=== PATIENT | female | born 1960 | race Caucasian/White ===

== ENCOUNTER 2016-12-24 13:00 | Inpatient (IN) | payer OTHER ==
[2016-12-24] VITALS (12 sets, daily range): BP systolic 122–172; BP diastolic 67–84; PULSE 100–119; RESP 17–28; TEMP 97.8–98; O2SAT 87–98
[~2016-12-24] VITALS: Ht 170.2 cm; Wt 161.0 kg
[~2016-12-24 13:00] MED LIST: ATEN25; LASI20TA PO; PRED20 PO; VASO10TA8 PO
[2016-12-24] MEDS ORDERED: methylPREDNISolone SOD SUCC 125 MG/2 ML VIAL IVP ONE (13:15)
[2016-12-24] MEDS ORDERED: SODIUM CHLORIDE 0.9% FLUSH 10 ML FLUSH IVF PRN (13:15)
--- NOTE | 2016-12-24 13:18 | PD ---
HPI Chief Complaint: Respiratory Symptoms Time Seen by Provider: 11:30 Travel History International Travel<30 days: No Contact w/Intl Traveler<30days: No Traveled to known affect area: No History of Present Illness HPI This is a 56-year-old female who presents via EMS for evaluation of shortness of breath and cough. She reports that she has had a cough and some shortness of breath for the past few weeks. Cough is occasionally productive with yellow sputum. She was initially seen last week by her primary care physician and prescribed drug Dosepak and doxycycline. She also uses a Ventolin inhaler as needed. Symptoms have been persistent and she was started on Cefdinir in addition to the doxycycline 2 days ago. Today she had a particularly bad coughing spell and she has had the sensation that she has been unable to catch her breath since then. For this reason she called EMS. He is currently complaining of shortness of breath and cough. She does endorse one episode of vomiting prior to arrival. She denies any chest pain, fevers or chills or myalgias, abdominal pain, nausea, leg pain or swelling. She has no history of COPD or asthma. She is not a smoker. No history of PE or DVT. She has no other complaints at this time. PFSH Past Medical History Asthma: Yes Diminished Hearing: No Endocrine: No Gastrointestinal Disorders: Yes (CHOLY ) Hypertension: Yes Implanted Vascular Access Dvce: Yes Neurologic: Yes (CARPAL TUNNEL ) Psychiatric: No Respiratory: Yes (PNA/BRONCHITIS) ?: Not : 1 Para: 1 Past Surgical History Body Medical Devices: PLATE/ SCREWS IN RIGHT ANKLE Section: Yes (95) Cholecystectomy: Yes (87) Tonsillectomy: Yes ( A CHILD) Other Surgery: Yes (TONSILLECTOMY, , PLATE/SCREWS IN RIGHT ANKLE, CHOLECYSTECTOMY ) Social History Alcohol Use: No Tobacco Use: No Substance Use: No Allergies-Medications (Allergen,Severity, Reaction): Coded Allergies: Sulfa (Verified Allergy, Severe, HIVES, 05/18/15) Reported Meds & Prescriptions Reported Meds & Active Scripts Active Reported Methylprednisolone Dosepak (Methylprednisolone) 4 Dspk 4 Mg PO DIRECTED Per Pharmacist Direction Tanzeum 4-Pack Inj (Albiglutide) 50 Mg Pfpen Unknown Dose SQ Q7D Amlodipine (Amlodipine Besylate) 2.5 Mg Tab Unknown Dose PO DAILY Doxycycline Hyclate 100 Mg Cap 100 Mg PO BID Enalapril (Enalapril Maleate) 20 Mg Tab 20 Mg PO DAILY Cefdinir 300 Mg Cap 300 Mg PO Q12HR Atenolol 50 Mg Tab 50 Mg PO BID Metformin (Metformin HCl) 500 Mg Tab 500 Mg PO DAILY With a meal Promethazine-Codeine Liq 6.25-10 Mg/5 Ml Syrp 5 Ml PO Q6H PRN Review of Systems Except as stated in HPI: all other systems reviewed are Neg Physical Exam Narrative GENERAL: This is a obese female who is tachypneic. Her oxygen saturation is 87 % on room air. SKIN: Warm and dry. HEAD: Atraumatic. Normocephalic. EYES: Pupils equal and round. No scleral icterus. No injection or drainage. ENT: No nasal bleeding or discharge. Mucous membranes pink and moist. NECK: Trachea midline. No JVD. CARDIOVASCULAR: Regular rate and rhythm. No murmur appreciated. RESPIRATORY: No accessory muscle use. Tachypneic, somewhat diminished breath sounds bilaterally. No appreciable crackles or wheezing. GASTROINTESTINAL: Abdomen soft, non-tender, nondistended. Hepatic and splenic margins not palpable. MUSCULOSKELETAL: No obvious deformities. No edema. NEUROLOGICAL: Awake and alert. No obvious cranial nerve deficits. Motor grossly within normal limits. Normal speech. Data Data Last Documented VS Vital Signs Date Time Temp Pulse Resp B/P Pulse Ox O2 Delivery O2 Flow Rate FiO2 12/24/16 16:01 113 20 122/69 94 Nasal Cannula 2 12/24/16 13:09 98.0 Orders Albuterol-Ipratropium Neb (Duoneb Neb) (12/24/16 13:15) Complete Blood Count With Diff (12/24/16 13:11) Comprehensive Metabolic Panel (12/24/16 13:11) B-Type Natriuretic Peptide (12/24/16 13:11) Magnesium (Mg) (12/24/16 13:11) Ckmb (Isoenzyme) Profile (12/24/16 13:11) Troponin I (12/24/16 13:11) Iv Access Insert/Monitor (12/24/16 13:11) Electrocardiogram (12/24/16 13:11) Ecg Monitoring (12/24/16 13:11) Oximetry (12/24/16 13:11) Oxygen Administration (12/24/16 13:11) Chest, Single Ap (12/24/16 13:11) Sodium Chloride 0.9% Flush (Ns Flush) (12/24/16 13:15) Methylprednisolone So Succ Inj (Solumedr (12/24/16 13:15) Ct Pulmonary Angiogram (12/24/16 13:11) Vascular Access Team Consult/P PRN (12/24/16 13:40) Vascular Poc Ultrasound (12/24/16 ) Iohexol 350 Inj (Omnipaque 350 Inj) (12/24/16 15:51) Heparin Infusion EUN.Q1H (12/24/16 16:09) Heparin Inj (Heparin Inj) (12/24/16 16:15) Heparin Inj (Heparin Inj) (12/24/16 22:15) Heparin Inj (Heparin Inj) (12/24/16 22:15) Heparin-D5w Inj (Heparin-D5w Inj) (12/24/16 16:15) Act Partial Throm Time (Ptt) (12/24/16 16:09) Prothrombin Time / Inr (Pt) (12/24/16 16:09) Cbc No Diff, Includes Plts (12/24/16 16:09) Cbc No Diff, Includes Plts (12/27/16 06:00) Act Partial Throm Time (Ptt) (12/24/16 23:09) Occult Blood (Hemoccult) Stool (12/24/16 16:09) Echo 2d Comp With Doppler (12/24/16 ) Admit Order (Ed Use Only) (12/24/16 16:34) Labs Laboratory Tests Test 12/24/16 12/24/16 13:20 16:15 White Blood Count 19.5 TH/MM3 17.7 TH/MM3 Red Blood Count 5.09 MIL/MM3 4.75 MIL/MM3 Hemoglobin 14.6 GM/DL 13.7 GM/DL Hematocrit 45.2 % 42.2 % Mean Corpuscular Volume 88.8 FL 88.8 FL Mean Corpuscular Hemoglobin 28.8 PG 28.8 PG Mean Corpuscular Hemoglobin 32.4 % 32.4 % Concent Red Cell Distribution Width 13.5 % 13.7 % Platelet Count 292 TH/MM3 248 TH/MM3 Mean Platelet Volume 9.0 FL 9.1 FL Neutrophils (%) (Auto) 79.7 % Lymphocytes (%) (Auto) 14.2 % Monocytes (%) (Auto) 5.6 % Eosinophils (%) (Auto) 0.1 % Basophils (%) (Auto) 0.4 % Neutrophils # (Auto) 15.6 TH/MM3 Lymphocytes # (Auto) 2.8 TH/MM3 Monocytes # (Auto) 1.1 TH/MM3 Eosinophils # (Auto) 0.0 TH/MM3 Basophils # (Auto) 0.1 TH/MM3 CBC Comment DIFF FINAL Differential Comment Sodium Level 139 MEQ/L Potassium Level 4.7 MEQ/L Chloride Level 104 MEQ/L Carbon Dioxide Level 21.1 MEQ/L Anion Gap 14 MEQ/L Blood Urea Nitrogen 19 MG/DL Creatinine 1.09 MG/DL Estimat Glomerular Filtration 52 ML/MIN Rate Random Glucose 262 MG/DL Calcium Level 9.3 MG/DL Magnesium Level 1.8 MG/DL Total Bilirubin 0.2 MG/DL Aspartate Amino Transf 25 U/L (AST/SGOT) Alanine Aminotransferase 36 U/L (ALT/SGPT) Alkaline Phosphatase 118 U/L Total Creatine Kinase 52 U/L Troponin I 0.16 NG/ML B-Type Natriuretic Peptide 219 PG/ML Total Protein 7.7 GM/DL Albumin 3.4 GM/DL Prothrombin Time 10.5 SEC Prothromb Time International 1.0 RATIO Ratio Activated Partial 26.6 SEC Thromboplast Time MDM Medical Decision Making Medical Screen Exam Complete: Yes Emergency Medical Condition: Yes Medical Record Reviewed: Yes Interpretation(s) CT pulmonary angiogram CONCLUSION: 1. Extensive pulmonary embolus. There is a saddle embolus with embolic material seen in both main right and left pulmonary arteries. EKG sinus tachycardia, some ST depression noted in the inferior and lateral leads. Troponin 0.16 Differential Diagnosis Spontaneous pneumothorax, pneumonia, hemothorax, bronchitis, pulmonary embolism , [place] Narrative Course This is a 56-year-old female who has been experiencing cough and shortness of breath for the past few weeks. Symptoms worsened today during a coughing spell prompted evaluation. On initial examination she is tachypneic, oxygen saturation 87% on room air. She is tachycardic. She was placed on oxygen with improvement of her symptoms. Given her hypoxia and tachycardia, CT pulmonary injury and has been ordered. The patient will be placed on ECG monitoring and pulse oximetry. Twelve-lead EKG will be obtained. Lab work has been ordered. DuoNeb therapy and Solu-Medrol has been ordered. The patient feels improved upon reexamination. Her oxygen saturation is 97% on 3 L of oxygen. Her blood pressure stable at 122/69. Continues to be tachycardic in the 110s. The lab work and imaging studies have been reviewed. She has saddle pulmonary embolus. She has a troponin of 0.16. She has leukocytosis which is likely secondary to the outpatient steroids. Heparin has been initiated at PE doses. Denies any recent bleeding episodes. Given her extensive PE, we will discuss with cardiology in order to get a stat echocardiogram. The patient will be admitted to the ICU. Discussed with Dr. Coulter who is agreeable. Diagnosis Primary Impression: Pulmonary embolus Qualified Code: I26.92 - Acute saddle pulmonary embolism without acute cor pulmonale Admitting Information Admitting Physician Requests: Admit Franky So Dec 24, 2016 13:18
[2016-12-24] MEDS: RESP: ALBUTEROL 2.5 MG/IPRATROPIUM 0.5 MG NEB (SCH) INH ×3 (13:26→20:38)
[2016-12-24] MEDS ORDERED: AMLO2.5T PO (13:36)
[2016-12-24] MEDS ORDERED: METH4PAK PO (13:36)
[2016-12-24] MEDS ORDERED: ATEN50TA PO (13:36)
[2016-12-24] MEDS ORDERED: METF500T PO (13:36)
[2016-12-24] MEDS ORDERED: ENAL20TA PO (13:36)
[2016-12-24] MEDS ORDERED: PROM6.256 PO (13:36)
[2016-12-24] MEDS ORDERED: DOXY100C PO (13:36)
[2016-12-24] MEDS ORDERED: ALBI1INJ2 SQ (13:36)
[2016-12-24] MEDS ORDERED: CEFD300C PO (13:36)
[2016-12-24 13:41] LABS: AUTOMATED NEUTROPHIL # 15.6 TH/MM3 (1.8-7.7); BASOPHIL # 0.1 TH/MM3 (0-0.2); BASOPHIL % 0.4 % (0.0-2.0); EOSINOPHIL % 0.1 % (0.0-4.0); HEMATOCRIT 45.2 % (35.0-46.0); HEMO FLAGS DIFF FINAL; LYMPH % 14.2 % (9.0-44.0); LYMPHOCYTE # 2.8 TH/MM3 (1.0-4.8); MEAN CELL VOLUME 88.8 FL (80.0-100.0); MEAN CORPUSCULAR HEMOGLOBIN 28.8 PG (27.0-34.0); MEAN CORPUSCULAR HGB CONC 32.4 % (32.0-36.0); MONO % 5.6 % (0.0-8.0); NEUT % 79.7 % (16.0-70.0); PLATELET COUNT 292 TH/MM3 (150-450); RED BLOOD COUNT 5.09 MIL/MM3 (4.00-5.30); RED CELL DISTRIBUTION WIDTH 13.5 % (11.6-17.2); WHITE BLOOD COUNT 19.5 TH/MM3 (4.0-11.0)
[2016-12-24 14:03] LABS: ALT (GPT) 36 U/L (10-53); ANION GAP 14 MEQ/L (5-15); AST (GOT) 25 U/L (15-37); BICARBONATE 21.1 MEQ/L (21.0-32.0); BLOOD UREA NITROGEN 19 MG/DL (7-18); CHLORIDE 104 MEQ/L (98-107); GLOMERULAR FILTRATION RATE 52 ML/MIN (>89); MAGNESIUM 1.8 MG/DL (1.5-2.5); POTASSIUM 4.7 MEQ/L (3.5-5.1); SODIUM (NA) 139 MEQ/L (136-145)
[2016-12-24 14:06] LABS: ALKALINE PHOSPHATASE 118 U/L (45-117); TOTAL BILIRUBIN ADULT 0.2 MG/DL (0.2-1.0)
--- NOTE | 2016-12-24 14:07 | RADRPT ---
EXAM DATE/TIME: 12/24/2016 13:15 [facility] COMPARISON: CHEST SINGLE AP, June 30, 2013, 23:36. INDICATIONS : Short of breath. MEDICAL HISTORY : Venous insufficiency. diabetic SURGICAL HISTORY : None. ENCOUNTER: Initial ACUITY: 1 day PAIN SCORE: 0/10 LOCATION: Bilateral chest FINDINGS: A single view of the chest demonstrates the lungs to be symmetrically aerated without evidence of mas s, infiltrate or effusion. The cardiomediastinal contours are unremarkable. Osseous structures are intact. CONCLUSION: 1. No acute cardiopulmonary disease. Edwin Singh MD on December 24, 2016 at 14:04 Board Certified Radiologist. This report was verified electronically.
[2016-12-24 14:08] LABS: CREATINE KINASE 52 U/L (26-192)
[2016-12-24] MEDS ORDERED: IOHEXOL 350 MG/ML 10 ML VIAL (for RAD DIAG) IV ONE (15:51)
[2016-12-24] MEDS ORDERED: HEPARIN-D5W INJ 250 ML IV SCH (16:15)
[2016-12-24] MEDS ORDERED: HEPARIN SODIUM - IV 10,000 UNITS/10 ML VIAL IV ONE (16:15)
--- NOTE | 2016-12-24 16:24 | RADRPT ---
EXAM DATE/TIME: 12/24/2016 15:48 [facility] COMPARISON: No previous studies available for comparison. INDICATIONS : Shortness of breath. Recently treated for bronchitis. Rule out embolism. IV CONTRAST: 75 cc Omnipaque 350 (iohexol) IV RADIATION DOSE: 27.29 CTDIvol (mGy) Dose Comments: MEDICAL HISTORY : Hypertension. Bronchitis SURGICAL HISTORY : Cholecystectomy. section. ENCOUNTER: Initial ACUITY: 1 day PAIN SCALE: 5/10 LOCATION: chest TECHNIQUE: Volumetric scanning of the chest was performed using a pulmonary embolism protocol MIP images were re constructed. Using automated exposure control and adjustment of the mA and/or kV according to patien t size, radiation dose was kept as low as reasonably achievable to obtain optimal diagnostic quality images. FINDINGS: PULMONARY ARTERIES: The examination demonstrates a large saddle embolus with embolic material in both the right and left pulmonary circulation. LUNGS: There is no consolidation or pneumothorax . No concerning pulmonary nodule is visualized. PLEURAE: There is no pleural thickening or pleural effusion. MEDIASTINUM: There is good visualization of the great vessels of the middle mediastinum. No evidence of mediastin al or hilar adenopathy/mass. MUSCULOSKELETAL: There are degenerative changes within the thoracic spine. MISCELLANEOUS: The visualized upper abdominal organs demonstrate no acute abnormality. CONCLUSION: 1. Extensive pulmonary embolus. There is a saddle embolus with embolic material seen in both main rig ht and left pulmonary arteries. Juve Ruelas MD on December 24, 2016 at 16:18 Board Certified Radiologist. This report was verified electronically.
[2016-12-24 16:40] LABS: HEMATOCRIT 42.2 % (35.0-46.0); MEAN CELL VOLUME 88.8 FL (80.0-100.0); MEAN CORPUSCULAR HEMOGLOBIN 28.8 PG (27.0-34.0); MEAN CORPUSCULAR HGB CONC 32.4 % (32.0-36.0); PLATELET COUNT 248 TH/MM3 (150-450); RED BLOOD COUNT 4.75 MIL/MM3 (4.00-5.30); RED CELL DISTRIBUTION WIDTH 13.7 % (11.6-17.2); REVIEW FLAG FINAL; WHITE BLOOD COUNT 17.7 TH/MM3 (4.0-11.0)
[2016-12-24 16:50] LABS: APTT (PATIENT) 26.6 SEC (24.3-30.1); PROTHROMBIN TIME - PATIENT 10.5 SEC (9.8-11.6)
[2016-12-24] MEDS ORDERED: CHLORHEXIDINE GLUCONATE 2 % 1 PACK (2 CLOTHS) TOP PRN (17:15)
[2016-12-24] MEDS ORDERED: RESP: ALBUTEROL 2.5 MG/IPRATROPIUM 0.5 MG NEB (PRN) INH (17:15)
[2016-12-24] MEDS ORDERED: MISCELLANEOUS NURSING INFORMATION XX SCH (17:15)
[2016-12-24] MEDS ORDERED: DEXTROSE 50% IN WATER 50 ML VIAL(D50) IV PRN (17:30)
[2016-12-24] MEDS ORDERED: GLUCAGON 1 MG/ML VIAL OTHER PRN (17:30)
--- NOTE | 2016-12-24 17:48 | PD.RAD ---
Post Procedure Progress Note Pre Procedure Diagnosis: (1) Pulmonary embolus Post Procedure Diagnosis: (1) Pulmonary embolus Procedure Date: Dec 24, 2016 Supervising Radiologist: Juve Ruelas Estimated blood loss: None Anesthesia: Local Plan of Activity Patient to Unit: Critical Care Patient Condition: Fair Additional Comments: 56 y/o with massive bilateral PE. sating 80% on room air Risk, benifits and potential complications of TPA infusion discussed. Right IJ CVL placed without difficulty TPA infusion initiated at 2mg per hour via the CVL. Heparin infusion started at 600 units/ hr. Pt transferred to the ICU See PACS Report for procedural detail/treatment Juve Ruelas MD Dec 24, 2016 17:48
--- NOTE | 2016-12-24 18:12 | MH ---
cc: PATO HARRIS M.D. DATE OF ADMISSION: 12/24/2016 DATE OF : 1960 HISTORY OF PRESENT ILLNESS The patient is a 56-year-old female with a past medical history of hypertension, diabetes mellitus, hyperlipidemia and morbid obesity who presented to [facility] ED for evaluation of progressive shortness of breath associated with cough. The patient states that she went to her primary care doctor approximately one week ago and was diagnosed with bronchitis and she was given antibiotics, doxycycline and Medrol Dosepak in addition to Ventolin inhaler as needed. Her symptoms have persisted and when she went back for a followup on Thursday she was given additional antibiotics of Cefdinir. She reports progressive worsening shortness of breath for the past several days. She denies any associated symptoms of chest pain, orthopnea or PND however she has some edema of lower extremities. On arrival to the ER, she was tachycardic with a heart rate of 110-119. Her initial chest x-ray showed no evidence of any cardiopulmonary disease. However, the patient underwent CT angiogram of the chest which showed extensive pulmonary embolism and a saddle embolus with embolic material seen in both main right and left pulmonary arteries. She denies any personal or family history of thromboembolism. The patient however states that she drove to [place] two weeks ago and came back after one week. Her laboratory data significant for mild elevation in troponin at 0.16 and BNP of 219. The case discussed with Dr. Grant Ruelas from interventional radiology and plan to proceed with central line placement and TPA infusion. She is currently on 2 liters oxygen with sats of 94% and tachycardic with heart rate of 112. Blood pressure is currently 122/69. The patient denies any abdominal pain however she had one episode of emesis prior to arrival. In the ED she was given a bronchodilator treatment and Solu-Medrol 125 mg IV push. The patient denies any history of tobacco use. PAST MEDICAL HISTORY Significant for - 1. Hypertension. 2. Diabetes mellitus. 3. Hyperlipidemia. 4. Morbid obesity. PAST SURGICAL HISTORY 1. Previous tonsillectomy. 2. Previous cholecystectomy. 3. Previous . 4. Previous ankle and knee surgeries. FAMILY HISTORY No family history of thromboembolism. ALLERGIES SULFA - SIDE EFFECTS HIVES. MEDICATIONS Reported medications include - 1. Enalapril. 2. Norvasc. 3. Metformin. 4. Lipitor. 5. Atenolol. 6. Doxycycline. REVIEW OF SYSTEMS As per HPI. The rest of the system unremarkable. PHYSICAL EXAMINATION GENERAL: A 56-year-old female lying in bed in mild respiratory distress, tachycardic. VITAL SIGNS: Temperature 98.0, pulse of 112, blood pressure 122/69, sats 95%. HEENT: Atraumatic, normocephalic. Pupils equal, round, reactive to light and accommodation. Extraocular muscles intact. Conjunctivae pink. Nonicteric sclerae. Oral mucosa within normal. NECK: Supple. No JVD, adenopathy or thyromegaly. Trachea in the midline. CARDIOVASCULAR: Tachycardic. Normal S1, S2. No murmurs, rubs or gallops noted. PULMONARY: Bilateral equal entry. No rales or wheezing. ABDOMEN: Soft, obese, nontender, no distension. Positive bowel sounds. EXTREMITIES: No cyanosis or clubbing. 1 to 2+ edema. NEUROLOGIC: No focal sensory deficit. LABORATORY DATA WBC 17.7, hemoglobin 13.7, hematocrit 42, platelet count 248. Sodium 139, potassium 4.7, chloride 104, CO2 21, BUN of 19, creatinine 1.0, glucose 262, troponin 0.16, BNP 219. NR 1, PT 10.5, PTT 26.6. RADIOGRAPHY STUDIES Chest x-ray showed no evidence of any acute cardiopulmonary disease. CT angiogram of the chest showed saddle pulmonary embolism with embolic material seen in both main right and left pulmonary arteries IMPRESSION 1. Acute hypoxemic respiratory insufficiency. 2. Saddle pulmonary embolism. 3. Dyspnea secondary to PE. 4. Mild elevation in troponin secondary to PE. 5. Morbid obesity. 6. Hyperglycemia. 7. History of diabetes mellitus. 8. Hypertension. 9. Hyperlipidemia. 10. Leukocytosis, likely reactive. RECOMMENDATIONS 1. Monitor neuro status and avoid any sedatives. 2. Continue with oxygen and maintain sats above 92%. 3. Bronchodilators in the form of DuoNeb q.4 plus q.2 p.r.n. for shortness of breath. 4. Noninvasive positive pressure ventilation p.r.n. for respiratory distress. 5. Case discussed with Dr. Ruelas from interventional radiology and plan to proceed with tPA infusion per protocol. 6. We will obtain Doppler ultrasound of bilateral lower extremities to rule out DVT. 7. Monitor heart rate and blood pressure closely and maintain MAP greater than 65 mmHg. 8. Monitor troponins and we will obtain 2D echo to rule out RV strain and to evaluate LV function. 9. Monitor renal function, Is and Os and electrolyte replacement per protocol. We will place on normal saline at 75 mL/hr. 10. Keep n.p.o. for now and place on Protonix 40 mg IV daily for GI prophylaxis. 11. Monitor for signs of infections which include fever and WBC. We will obtain urinalysis with culture if indicated. A chest x-ray in the ER showed no evidence of any acute cardiopulmonary disease. We will panculture if spikes a fever. 12. Monitor CBC and coags as the patient will be on tPA infusion per PE protocol. 13. Place on medium scale sliding scale insulin with Accu-Chek q.4 hours for glycemic control. 14. GI prophylaxis with Protonix 40 mg daily and DVT prophylaxis with SCDs. In addition the patient will be on tPA infusion along with heparin. 15. Further recommendations will be based on hospital course. MD KJ Mustafa/ROSEANNE /5:13 PM /5:48 PM
--- NOTE | 2016-12-24 18:31 | PD ---
Data Data Last Documented VS Vital Signs Date Time Temp Pulse Resp B/P Pulse Ox O2 Delivery O2 Flow Rate FiO2 12/24/16 16:01 113 20 122/69 94 Nasal Cannula 2 12/24/16 13:09 98.0 Orders Albuterol-Ipratropium Neb (Duoneb Neb) (12/24/16 13:15) Complete Blood Count With Diff (12/24/16 13:11) Comprehensive Metabolic Panel (12/24/16 13:11) B-Type Natriuretic Peptide (12/24/16 13:11) Magnesium (Mg) (12/24/16 13:11) Ckmb (Isoenzyme) Profile (12/24/16 13:11) Troponin I (12/24/16 13:11) Iv Access Insert/Monitor (12/24/16 13:11) Electrocardiogram (12/24/16 13:11) Ecg Monitoring (12/24/16 13:11) Oximetry (12/24/16 13:11) Oxygen Administration (12/24/16 13:11) Chest, Single Ap (12/24/16 13:11) Sodium Chloride 0.9% Flush (Ns Flush) (12/24/16 13:15) Methylprednisolone So Succ Inj (Solumedr (12/24/16 13:15) Ct Pulmonary Angiogram (12/24/16 13:11) Vascular Access Team Consult/P PRN (12/24/16 13:40) Vascular Poc Ultrasound (12/24/16 ) Iohexol 350 Inj (Omnipaque 350 Inj) (12/24/16 15:51) Heparin Infusion EUN.Q1H (12/24/16 16:09) Heparin Inj (Heparin Inj) (12/24/16 16:15) Heparin Inj (Heparin Inj) (12/24/16 22:15) Heparin Inj (Heparin Inj) (12/24/16 22:15) Heparin-D5w Inj (Heparin-D5w Inj) (12/24/16 16:15) Act Partial Throm Time (Ptt) (12/24/16 16:09) Prothrombin Time / Inr (Pt) (12/24/16 16:09) Cbc No Diff, Includes Plts (12/24/16 16:09) Cbc No Diff, Includes Plts (12/27/16 06:00) Act Partial Throm Time (Ptt) (12/24/16 23:09) Occult Blood (Hemoccult) Stool (12/24/16 16:09) Echo 2d Comp With Doppler (12/24/16 ) Admit Order (Ed Use Only) (12/24/16 16:34) Labs Laboratory Tests Test 12/24/16 12/24/16 13:20 16:15 White Blood Count 19.5 TH/MM3 17.7 TH/MM3 Red Blood Count 5.09 MIL/MM3 4.75 MIL/MM3 Hemoglobin 14.6 GM/DL 13.7 GM/DL Hematocrit 45.2 % 42.2 % Mean Corpuscular Volume 88.8 FL 88.8 FL Mean Corpuscular Hemoglobin 28.8 PG 28.8 PG Mean Corpuscular Hemoglobin 32.4 % 32.4 % Concent Red Cell Distribution Width 13.5 % 13.7 % Platelet Count 292 TH/MM3 248 TH/MM3 Mean Platelet Volume 9.0 FL 9.1 FL Neutrophils (%) (Auto) 79.7 % Lymphocytes (%) (Auto) 14.2 % Monocytes (%) (Auto) 5.6 % Eosinophils (%) (Auto) 0.1 % Basophils (%) (Auto) 0.4 % Neutrophils # (Auto) 15.6 TH/MM3 Lymphocytes # (Auto) 2.8 TH/MM3 Monocytes # (Auto) 1.1 TH/MM3 Eosinophils # (Auto) 0.0 TH/MM3 Basophils # (Auto) 0.1 TH/MM3 CBC Comment DIFF FINAL Differential Comment Sodium Level 139 MEQ/L Potassium Level 4.7 MEQ/L Chloride Level 104 MEQ/L Carbon Dioxide Level 21.1 MEQ/L Anion Gap 14 MEQ/L Blood Urea Nitrogen 19 MG/DL Creatinine 1.09 MG/DL Estimat Glomerular Filtration 52 ML/MIN Rate Random Glucose 262 MG/DL Calcium Level 9.3 MG/DL Magnesium Level 1.8 MG/DL Total Bilirubin 0.2 MG/DL Aspartate Amino Transf 25 U/L (AST/SGOT) Alanine Aminotransferase 36 U/L (ALT/SGPT) Alkaline Phosphatase 118 U/L Total Creatine Kinase 52 U/L Troponin I 0.16 NG/ML B-Type Natriuretic Peptide 219 PG/ML Total Protein 7.7 GM/DL Albumin 3.4 GM/DL Prothrombin Time 10.5 SEC Prothromb Time International 1.0 RATIO Ratio Activated Partial 26.6 SEC Thromboplast Time MDM Supervised Visit with MAC: Yes Narrative Course The history, exam, and medical decision-making in the associated midlevel provider note were completed with my assistance. I reviewed and agree with the findings presented. I attest that I had a [id number] encounter with the patient on the same day, and personally performed and documented my assessment and findings in the medical record. *My assessment and Findings: This is a 56-year-old female who presents the emergency department with cough and shortness of breath that is worse for one day. She was hypoxic on arrival and tachycardic. She was placed on a monitored an IV was established. Labs demonstrated a mildly elevated troponin. CT pulmonary angiogram demonstrates a saddle embolus. We discussed the patient with interventional radiology as well as Dr. Coulter and the patient was heparinized and given catheter directed TPA. Diagnosis Primary Impression: Pulmonary embolus Qualified Code: I26.92 - Acute saddle pulmonary embolism without acute cor pulmonale Admitting Information Admitting Physician Requests: Admit Dahiana Hawkins MD Dec 24, 2016 18:31
--- NOTE | 2016-12-24 19:34 | RADRPT ---
EXAM DATE/TIME: 12/24/2016 18:33 [facility] COMPARISON: No previous studies available for comparison. INDICATIONS : Bilateral leg edema. MEDICAL HISTORY : Hypertension. Carpel tunnel. Asthma. Pneumonia. Bronchitis. SURGICAL HISTORY : Tonsillectomy.Cholecystectomy. section.Right ankle repair. Right knee surgery. ENCOUNTER: Initial ACUITY: 1 day PAIN SCORE: 6/10 LOCATION: Bilateral leg. TECHNIQUE: Venous ultrasound of the left and right leg was performed from the inguinal ligament to the proximal calf. Real-time, color Doppler and spectral tracing, compression and augmentation techniques were us ed. FINDINGS: Examination quality is less than optimal secondary to patient body habitus. RIGHT LEG: There is incomplete compression of the mid and distal femoral vein. No visible thrombus is seen. Bloo d flow is documented throughout the vessels. Remaining vessels demonstrate normal compression. LEFT LEG: There is incomplete compression of the mid femoral vein, popliteal vein, and peroneal veins and nonco mpression of the distal femoral vein. Possible thrombus is present in the distal femoral vein. Blood flow is documented within the vessels. CONCLUSION: 1. Examination quality is less than optimal secondary to patient body habitus. Examination is suspici ous for DVT within the left distal femoral vein. 2. There is incomplete compression of the right mid and distal femoral vein which could represent thr ombus. Stephen Carolina MD on December 24, 2016 at 19:21 Board Certified Radiologist. This report was verified electronically.
[2016-12-24] MEDS ORDERED: Intra-Venous HEPARIN 1,000 UNITS/500 ML NS (PRN) IV ×2 (19:45)
[2016-12-24] MEDS ORDERED: MORPHINE SULFATE 4 MG/ML INJ IV PRN (19:45)
[2016-12-24] MEDS ORDERED: HEPARIN 25,000 UNITS/250 ML D5W IV SCH (19:45)
[2016-12-24] MEDS ORDERED: Intra-Venous SODIUM CHLORIDE 0.9% IV LINE 1000 ML IV SCH (20:00)
[2016-12-24] MEDS: INSULIN NovoLIN REGULAR SUPPLEMENTAL SCALE SQ SCH (20:00)
[2016-12-24] MEDS: SODIUM CHLOR 0.9% 1000 ML INJ 1,000 ML IV SCH (20:54)
[2016-12-24 21:00] LABS: APTT (PATIENT) 27.1 SEC (24.3-30.1)
[2016-12-24 21:17] LABS: BACTERIA, URINE RARE /hpf; BLOOD, URINE NEG (NEG); COMMENT (UR) CULT NOT INDICATED; CULTURE IF INDICATED CULT NOT INDICATED; GLUCOSE,URINE NEG (NEG); KETONE, URINE NEG (NEG); NITRITE,URINE NEG (NEG); SQUAMOUS EPITHELIAL CELL URINE 2 /hpf (0-5); URINE COLOR YELLOW (YELLW/STRAW)
--- NOTE | 2016-12-24 21:21 | ECHRPT ---
Indication: Other pulmonary embolism without acute cor pulmonale CONCLUSIONS Normal left ventricular size. Wall thickness is normal. The left ventricular systolic function is normal with an estimated ejection fraction of 60%. There is flattening of the septum due to the right ventricular overload. The right ventricular function is moderately decreased. Right ventricle is severely dilated. The right atrial size is mildly dilated. There is mild tricuspid valve regurgitation. There is estimated mild pulmonary hypertension present (range 40-50 mmHg). BP: 151 / 84 HR: Rhythm: Sinus MEASUREMENTS (Male / Female) Normal Values Technical Quality:Fair 2D ECHO LV Diastolic Diameter PLAX 3.2 cm 4.2 - 5.9 / 3.9 - 5.3 cm LV Systolic Diameter PLAX 2.2 cm IVS Diastolic Thickness 1.0 cm 0.6 - 1.0 / 0.6 - 0.9 cm LVPW Diastolic Thickness 0.9 cm 0.6 - 1.0 / 0.6 - 0.9 cm LV Relative Wall Thickness 0.6 RV Internal Dim ED PLAX 4.2 cm LVOT Diameter 1.8 cm Aortic Root Diameter 2.9 cm M-MODE AV Cusp Separation MM 1.8 cm DOPPLER TV Peak Velocity 254.0 cm/s TR Peak Velocity 292.0 cm/s TR Peak Gradient 34.1 mmHg PV Peak Velocity 39.9 cm/s PV Peak Gradient 0.6 mmHg FINDINGS LEFT VENTRICLE Normal left ventricular size. Wall thickness is normal. The left ventricular systolic function is normal with an estimated ejection fraction of 60%. There is flattening of the septum due to the right ventricular overload. RIGHT VENTRICLE The right ventricular function is moderately decreased. Right ventricle is severely dilated. LEFT ATRIUM The left atrial size is normal. RIGHT ATRIUM The right atrial size is mildly dilated. ATRIAL SEPTUM The interatrial septum not well visualized. AORTA The aortic root and proximal ascending aorta are not well visualized MITRAL VALVE The mitral valve is not well visualized. AORTIC VALVE Trileaflet aortic valve. No aortic valve regurgitation. TRICUSPID VALVE Structurally normal tricuspid valve. There is mild tricuspid valve regurgitation. There is estimated mild pulmonary hypertension present (range 40-50 mmHg). PERICARDIUM No pericardial effusion. Christopher Bianchi MD, FACC (Electronically Signed) Final Date:24 December 2016 21:09
[2016-12-24] MEDS ORDERED: HEPARIN SODIUM - IV 10,000 UNITS/10 ML VIAL IV PRN ×2 (22:15)
[2016-12-24] MEDS: Intra-Venous ALTEPLASE 10 MG/500 ML NS IV SCH ×2 (23:00)
[2016-12-25] VITALS (36 sets, daily range): BP systolic 144–169; BP diastolic 65–75; PULSE 73–100; RESP 12–33; TEMP 97.4–98.5; O2SAT 93–100
[2016-12-25] MEDS: RESP: ALBUTEROL 2.5 MG/IPRATROPIUM 0.5 MG NEB (SCH) INH ×7 (00:22→23:57)
[2016-12-25 00:35] LABS: APTT (PATIENT) 27.1 SEC (24.3-30.1)
[2016-12-25] MEDS: Intra-Venous ALTEPLASE 10 MG/500 ML NS IV SCH ×4 (03:46→09:28)
[2016-12-25] MEDS: INSULIN NovoLIN REGULAR SUPPLEMENTAL SCALE SQ SCH ×6 (03:47→20:00)
[2016-12-25] MEDS: CHLORHEXIDINE GLUCONATE 2 % 1 PACK (2 CLOTHS) TOP SCH (03:47)
[2016-12-25 04:36] LABS: AUTOMATED NEUTROPHIL # 11.6 TH/MM3 (1.8-7.7); BASOPHIL % 0.1 % (0.0-2.0); HEMATOCRIT 38.4 % (35.0-46.0); HEMO FLAGS DIFF FINAL; LYMPH % 11.4 % (9.0-44.0); LYMPHOCYTE # 1.6 TH/MM3 (1.0-4.8); MEAN CELL VOLUME 88.4 FL (80.0-100.0); MEAN CORPUSCULAR HEMOGLOBIN 28.9 PG (27.0-34.0); MEAN CORPUSCULAR HGB CONC 32.7 % (32.0-36.0); MONO % 5.9 % (0.0-8.0); NEUT % 82.6 % (16.0-70.0); PLATELET COUNT 195 TH/MM3 (150-450); RED BLOOD COUNT 4.35 MIL/MM3 (4.00-5.30); RED CELL DISTRIBUTION WIDTH 13.5 % (11.6-17.2)
[2016-12-25 04:46] LABS: APTT (PATIENT) 26.2 SEC (24.3-30.1)
[2016-12-25 04:52] LABS: BICARBONATE 25.5 MEQ/L (21.0-32.0); MAGNESIUM 1.6 MG/DL (1.5-2.5); POTASSIUM 4.4 MEQ/L (3.5-5.1)
[2016-12-25] MEDS: SODIUM CHLOR 0.9% 1000 ML INJ 1,000 ML IV SCH ×2 (05:11→20:10)
--- NOTE | 2016-12-25 08:03 | HHI.CCPN ---
Subjective Remarks/Hospital Course The patient is a 56-year-old female with a past medical history of hypertension , diabetes mellitus, hyperlipidemia and morbid obesity who presented to [facility] ED for evaluation of progressive shortness of breath associated with cough. The patient states that she went to her primary care doctor approximately one week ago and was diagnosed with bronchitis and she was given antibiotics, doxycycline and Medrol Dosepak in addition to Ventolin inhaler as needed. Her symptoms have persisted and when she went back for a followup on Thursday she was given additional antibiotics of Cefdinir. She reports progressive worsening shortness of breath for the past several days. She denies any associated symptoms of chest pain, orthopnea or PND however she has some edema of lower extremities. On arrival to the ER, she was tachycardic with a heart rate of 110-119. Her initial chest x-ray showed no evidence of any cardiopulmonary disease. However, the patient underwent CT angiogram of the chest which showed extensive pulmonary embolism, a saddle embolus with embolic material seen in both main right and left pulmonary arteries. She denies any personal or family history of thromboembolism. The patient however states that she drove to [place] two weeks ago and came back after one week. Her laboratory data significant for mild elevation in troponin at 0.16 and BNP of 219. The case discussed with Dr. Grant Ruelas from interventional radiology and plan to proceed with central line placement and TPA infusion. She is currently on 2 liters oxygen with sats of 94% and tachycardic with heart rate of 112. Blood pressure is currently 122/69. The patient denies any abdominal pain however she had one episode of emesis prior to arrival. In the ED she was given a bronchodilator treatment and Solu-Medrol 125 mg IV push. 12/25 Patient states she is breathing much better. On TPA and Heparin infusion. Afebrile. Denies any chest pain. On 2L oxygen. Objective Vital Signs Date Time Temp Pulse Resp B/P Pulse Ox O2 Delivery O2 Flow Rate FiO2 12/25/16 06:00 98.2 83 16 165/73 96 12/25/16 00:22 Nasal Cannula 2.00 Intake and Output 12/24/16 12/24/16 12/25/16 08:00 16:00 00:00 Intake Total 645 ml Output Total 200 ml Balance 445 ml Result Diagram: 12/25/16 0400 12/25/16 0400 Other Results Laboratory Tests Test 12/24/16 12/24/16 12/24/16 12/24/16 13:20 16:15 18:03 19:30 White Blood Count 19.5 TH/MM3 17.7 TH/MM3 Red Blood Count 5.09 MIL/MM3 4.75 MIL/MM3 Hemoglobin 14.6 GM/DL 13.7 GM/DL Hematocrit 45.2 % 42.2 % Mean Corpuscular Volume 88.8 FL 88.8 FL Mean Corpuscular Hemoglobin 28.8 PG 28.8 PG Mean Corpuscular Hemoglobin 32.4 % 32.4 % Concent Red Cell Distribution Width 13.5 % 13.7 % Platelet Count 292 TH/MM3 248 TH/MM3 Mean Platelet Volume 9.0 FL 9.1 FL Neutrophils (%) (Auto) 79.7 % Lymphocytes (%) (Auto) 14.2 % Monocytes (%) (Auto) 5.6 % Eosinophils (%) (Auto) 0.1 % Basophils (%) (Auto) 0.4 % Neutrophils # (Auto) 15.6 TH/MM3 Lymphocytes # (Auto) 2.8 TH/MM3 Monocytes # (Auto) 1.1 TH/MM3 Eosinophils # (Auto) 0.0 TH/MM3 Basophils # (Auto) 0.1 TH/MM3 CBC Comment DIFF FINAL Differential Comment Sodium Level 139 MEQ/L Potassium Level 4.7 MEQ/L Chloride Level 104 MEQ/L Carbon Dioxide Level 21.1 MEQ/L Anion Gap 14 MEQ/L Blood Urea Nitrogen 19 MG/DL Creatinine 1.09 MG/DL Estimat Glomerular Filtration 52 ML/MIN Rate Random Glucose 262 MG/DL Calcium Level 9.3 MG/DL Magnesium Level 1.8 MG/DL Total Bilirubin 0.2 MG/DL Aspartate Amino Transf 25 U/L (AST/SGOT) Alanine Aminotransferase 36 U/L (ALT/SGPT) Alkaline Phosphatase 118 U/L Total Creatine Kinase 52 U/L Troponin I 0.16 NG/ML B-Type Natriuretic Peptide 219 PG/ML Total Protein 7.7 GM/DL Albumin 3.4 GM/DL Prothrombin Time 10.5 SEC Prothromb Time International 1.0 RATIO Ratio Activated Partial 26.6 SEC Thromboplast Time Nasal Screen MRSA (PCR) MRSA NOT DETECTED Urine Color YELLOW Urine Turbidity HAZY Urine pH 6.0 Urine Specific [place] GREATER THAN 1.050 Urine Protein 100 mg/dL Urine Glucose (UA) NEG mg/dL Urine Ketones NEG mg/dL Urine Occult Blood NEG Urine Nitrite NEG Urine Bilirubin NEG Urine Urobilinogen LESS THAN 2.0 MG/DL Urine Leukocyte Esterase NEG Urine RBC 4 /hpf Urine WBC 2 /hpf Urine Squamous Epithelial 2 /hpf Cells Urine Bacteria RARE /hpf Microscopic Urinalysis Comment CULT NOT INDICATED Test 12/24/16 12/25/16 12/25/16 20:33 00:06 04:00 Activated Partial 27.1 SEC 27.1 SEC 26.2 SEC Thromboplast Time Fibrinogen 286 mg/dL 270 mg/dL 229 mg/dL White Blood Count 14.0 TH/MM3 Red Blood Count 4.35 MIL/MM3 Hemoglobin 12.5 GM/DL Hematocrit 38.4 % Mean Corpuscular Volume 88.4 FL Mean Corpuscular Hemoglobin 28.9 PG Mean Corpuscular Hemoglobin 32.7 % Concent Red Cell Distribution Width 13.5 % Platelet Count 195 TH/MM3 Mean Platelet Volume 8.6 FL Neutrophils (%) (Auto) 82.6 % Lymphocytes (%) (Auto) 11.4 % Monocytes (%) (Auto) 5.9 % Eosinophils (%) (Auto) 0.0 % Basophils (%) (Auto) 0.1 % Neutrophils # (Auto) 11.6 TH/MM3 Lymphocytes # (Auto) 1.6 TH/MM3 Monocytes # (Auto) 0.8 TH/MM3 Eosinophils # (Auto) 0.0 TH/MM3 Basophils # (Auto) 0.0 TH/MM3 CBC Comment DIFF FINAL Differential Comment Sodium Level 141 MEQ/L Potassium Level 4.4 MEQ/L Chloride Level 106 MEQ/L Carbon Dioxide Level 25.5 MEQ/L Anion Gap 10 MEQ/L Blood Urea Nitrogen 26 MG/DL Creatinine 1.10 MG/DL Estimat Glomerular Filtration 51 ML/MIN Rate Random Glucose 182 MG/DL Calcium Level 8.6 MG/DL Phosphorus Level 3.9 MG/DL Magnesium Level 1.6 MG/DL Imaging Last Impressions Chest X-Ray 12/24/16 1311 Signed Impressions: Service Date/Time: Saturday, December 24, 2016 13:15 - CONCLUSION: 1. No acute cardiopulmonary disease. Edwin Singh MD CT Angiography 12/24/16 1311 Signed Impressions: Service Date/Time: Saturday, December 24, 2016 15:48 - CONCLUSION: 1. Extensive pulmonary embolus. There is a saddle embolus with embolic material seen in both main right and left pulmonary arteries. Juve Ruelas MD Lower Extremity Ultrasound 12/24/16 0000 Signed Impressions: Service Date/Time: Saturday, December 24, 2016 18:33 - CONCLUSION: 1. Examination quality is less than optimal secondary to patient body habitus. Examination is suspicious for DVT within the left distal femoral vein. 2. There is incomplete compression of the right mid and distal femoral vein which could represent thrombus. Stephen Carolina MD Objective Remarks GENERAL: Patient is 56 yo lying in bed in no acute resp distress SKIN: Warm and dry. HEAD: Normocephalic. EYES: No scleral icterus. No injection or drainage. NECK: Supple, trachea midline. No JVD or lymphadenopathy. CARDIOVASCULAR: Regular rate and rhythm without murmurs, gallops, or rubs. RESPIRATORY: Breath sounds equal bilaterally. No accessory muscle use. GASTROINTESTINAL: Abdomen soft, non-tender, nondistended. MUSCULOSKELETAL: No cyanosis,+ edema. Neuro: Awake and alert. A/P Assessment and Plan 1. Acute hypoxemic respiratory insufficiency..improving 2. Saddle pulmonary embolism. 3. Dyspnea secondary to PE. 4. Mild elevation in troponin secondary to PE. 5. Morbid obesity. 6. Hyperglycemia. 7. History of diabetes mellitus. 8. Hypertension. 9. Hyperlipidemia. 10. Leukocytosis, likely reactive. Plan: Neuro: Monitor neuro status and avoid any sedatives. Pulm: Continue with oxygen and maintain sats > 92%. Bronchodilators, NIPPV PRN for respiratory distress. Continue with TPA/Heparin infusion per IR. Doppler US showed DVT LLE and ? thrombus RLE CV: Monitor HR and BP and maintain MAP > 65 mmHg. Echo showed EF 60%, mode. decreased RV function and severely dilated. Mild pulm HTN PAP 40-50mmHg : Monitor renal function, Is and Os and electrolyte replacement per protocol. On NS 75 mL/hr. GI: on Protonix 40 mg IV daily for GI prophylaxis. On PO diet ID: Monitor for signs of infections(fever and WBC) WBC trending down. CXR in ER showed no evidence of any acute cardiopulmonary disease. Panculture if spikes a fever. Heme: Monitor CBC and coags-on TPA/Heparin infusion Endo SSI ( medium scale) with Accu-Chek q.4 hours for glycemic control. GI prophylaxis with Protonix 40 mg daily and DVT prophylaxis with SCDs/ on TPA/ heparin infusion. Level 3 Shantelle Coulter MD Dec 25, 2016 08:03
[2016-12-25] MEDS: PANTOPRAZOLE SODIUM 40 MG VIAL IV SCH (08:35)
--- NOTE | 2016-12-25 10:07 | PD.RAD ---
Radiology Note 56 Y/O POD 1 TPA infusion for massive PE. PT doing well this AM sating 97% on room air. TPA infusion discontinued. Heparin infusion continuing at 600 units/hr and will be titrated per hospital protocol at noon. Juve Ruelas MD Dec 25, 2016 10:07
--- NOTE | 2016-12-25 10:37 | RADRPT ---
EXAM DATE/TIME: 12/24/2016 17:28 [place] COMPARISON: THROMBOLYTIC INFUSION, RIGHT, December 24, 2016, 0:00. INDICATIONS : Patient with history of pulmonary embolism in need of central line catheter for TPA infusion. MEDICAL HISTORY : 1.Asthma 2.HTN 3.Carpal tunnel 4. Bronchitis 5.SOB for a few weeks SURGICAL HISTORY : Right ankle surgery, Cholecystectomy, Tonsillectomy ENCOUNTER: Initial ACUITY: 1 day PAIN SCORE: 0/10 FLUORO TIME: 0.3 minutes IMAGE SERIES: 1 ACCESS: Right internal jugular vein DEVICE(S): 1.) 7 [place] triple lumen 20 cm Arrow central line PROCEDURE : 1. Ultrasound guided venipuncture. 2. Fluoroscopic guidance. 3. Central line placement. The patient is a 56-year-old who presented to the emergency department with severe shortness of breat h. CT pulmonary angiogram demonstrated extensive bilateral pulmonary embolus. The risks, benefits and alternatives to the procedure were explained and verbal and written consent w as obtained. The site was prepped in sterile fashion. Full sterile technique was used, including ca p, mask, sterile gloves and gown and a large sterile sheet. Hand hygiene and 2% chlorhexidine prep w as utilized per protocol for cutaneous antisepsis with appropriate dry time for site. The skin and subcutaneous tissues were infiltrated with local anesthetic solution. A suitable site a dewayne the vein was selected with ultrasound and fluoroscopic guidance. A small incision was made. Th e vein was accessed under direct ultrasound visualization using the micropuncture technique. The paulo ropuncture set was exchanged for a 0.035 wire. The tract was dilated. The catheter was advanced int o position under direct fluoroscopic visualization. The catheter was fixed in place with suture and a sterile dressing was applied. Post placement of central venous catheter TPA infusion was initiated at 2 mg per hour. Heparin infusi on was initiated at 600 units per hour. The patient was transferred to the intensive care unit in goo d condition. The patient tolerated the procedure well and there were no complications. CONCLUSION: 1. Successful central line placement via the right internal jugular. 2. TPA infusion was initiated at 2 mg per hour for lysis of the patient's pulmonary embolus. Juve Ruelas MD on December 25, 2016 at 10:33 Board Certified Radiologist. This report was verified electronically.
[2016-12-25 12:26] LABS: APTT (PATIENT) 26.6 SEC (24.3-30.1)
[2016-12-25] MEDS ORDERED: HEPARIN-D5W INJ 250 ML IV SCH (14:15)
[2016-12-25 15:12] LABS: HEMATOCRIT 38.6 % (35.0-46.0); MEAN CELL VOLUME 89.1 FL (80.0-100.0); MEAN CORPUSCULAR HGB CONC 32.5 % (32.0-36.0); PLATELET COUNT 204 TH/MM3 (150-450); RED BLOOD COUNT 4.34 MIL/MM3 (4.00-5.30); RED CELL DISTRIBUTION WIDTH 13.9 % (11.6-17.2); REVIEW FLAG FINAL; WHITE BLOOD COUNT 16.6 TH/MM3 (4.0-11.0)
--- NOTE | 2016-12-25 15:20 | EKG ---
Date Performed: 12/24/2016 Time Performed: 13:32:23 PTAGE: 56 years EKG: SINUS TACHYCARDIA INCOMPLETE RIGHT BUNDLE BRANCH BLOCK MODERATE ST DEPRESSION Compared to p revious tracing, the incomplete Right bundle branch block and the ST segment changes are new. Clinica l correlation to exclude ischemia will be important ABNORMAL ECG PREVIOUS TRACING : 07/17/2013 22.35 DOCTOR: Eneida Henry Interpretating Date/Time 12/25/2016 15:19:16
[2016-12-25 15:22] LABS: APTT (PATIENT) 25.2 SEC (24.3-30.1); PROTHROMBIN TIME - PATIENT 11.3 SEC (9.8-11.6)
[2016-12-25 21:46] LABS: APTT (PATIENT) 25.8 SEC (24.3-30.1)
[2016-12-26] VITALS (13 sets, daily range): BP systolic 123–170; BP diastolic 58–72; PULSE 77–97; RESP 16–20; TEMP 97.8–98.8; O2SAT 91–96
[2016-12-26] MEDS: RESP: ALBUTEROL 2.5 MG/IPRATROPIUM 0.5 MG NEB (SCH) INH ×6 (02:34→23:42)
[2016-12-26] MEDS: INSULIN NovoLIN REGULAR SUPPLEMENTAL SCALE SQ SCH ×6 (04:00→20:00)
[2016-12-26] MEDS: CHLORHEXIDINE GLUCONATE 2 % 1 PACK (2 CLOTHS) TOP SCH (04:00)
[2016-12-26 05:16] LABS: AUTOMATED NEUTROPHIL # 7.1 TH/MM3 (1.8-7.7); BASOPHIL # 0.1 TH/MM3 (0-0.2); BASOPHIL % 0.5 % (0.0-2.0); EOSINOPHIL % 0.1 % (0.0-4.0); HEMATOCRIT 36.1 % (35.0-46.0); HEMO FLAGS DIFF FINAL; LYMPH % 35.1 % (9.0-44.0); LYMPHOCYTE # 4.4 TH/MM3 (1.0-4.8); MEAN CELL VOLUME 89.2 FL (80.0-100.0); MEAN CORPUSCULAR HEMOGLOBIN 29.2 PG (27.0-34.0); MEAN CORPUSCULAR HGB CONC 32.8 % (32.0-36.0); MONO % 8.1 % (0.0-8.0); NEUT % 56.2 % (16.0-70.0); PLATELET COUNT 174 TH/MM3 (150-450); RED BLOOD COUNT 4.05 MIL/MM3 (4.00-5.30); RED CELL DISTRIBUTION WIDTH 13.9 % (11.6-17.2); WHITE BLOOD COUNT 12.6 TH/MM3 (4.0-11.0)
[2016-12-26 05:19] LABS: APTT (PATIENT) 26.6 SEC (24.3-30.1)
[2016-12-26 05:31] LABS: BICARBONATE 27.6 MEQ/L (21.0-32.0); POTASSIUM 3.8 MEQ/L (3.5-5.1)
[2016-12-26] MEDS: SODIUM CHLOR 0.9% 1000 ML INJ 1,000 ML IV SCH (08:27)
[2016-12-26] MEDS: PANTOPRAZOLE SODIUM 40 MG VIAL IV SCH (08:27)
--- NOTE | 2016-12-26 08:39 | HHI.CCPN ---
Subjective Remarks/Hospital Course The patient is a 56-year-old female with a past medical history of hypertension , diabetes mellitus, hyperlipidemia and morbid obesity who presented to [facility] ED for evaluation of progressive shortness of breath associated with cough. The patient states that she went to her primary care doctor approximately one week ago and was diagnosed with bronchitis and she was given antibiotics, doxycycline and Medrol Dosepak in addition to Ventolin inhaler as needed. Her symptoms have persisted and when she went back for a followup on Thursday she was given additional antibiotics of Cefdinir. She reports progressive worsening shortness of breath for the past several days. She denies any associated symptoms of chest pain, orthopnea or PND however she has some edema of lower extremities. On arrival to the ER, she was tachycardic with a heart rate of 110-119. Her initial chest x-ray showed no evidence of any cardiopulmonary disease. However, the patient underwent CT angiogram of the chest which showed extensive pulmonary embolism, a saddle embolus with embolic material seen in both main right and left pulmonary arteries. She denies any personal or family history of thromboembolism. The patient however states that she drove to [place] two weeks ago and came back after one week. Her laboratory data significant for mild elevation in troponin at 0.16 and BNP of 219. The case discussed with Dr. Grant Ruelas from interventional radiology and plan to proceed with central line placement and TPA infusion. She is currently on 2 liters oxygen with sats of 94% and tachycardic with heart rate of 112. Blood pressure is currently 122/69. The patient denies any abdominal pain however she had one episode of emesis prior to arrival. In the ED she was given a bronchodilator treatment and Solu-Medrol 125 mg IV push. 12/25 Patient states she is breathing much better. On TPA and Heparin infusion. Afebrile. Denies any chest pain. On 2L oxygen. 12/26 No events overnight patient ezra room air oxygen. On Heparin drip. Afebrile. Objective Vital Signs Date Time Temp Pulse Resp B/P Pulse Ox O2 Delivery O2 Flow Rate FiO2 12/26/16 07:38 96 21 12/26/16 06:00 82 12/26/16 04:00 97.8 16 152/67 12/25/16 08:48 Nasal Cannula 2.00 Intake and Output 12/25/16 12/25/16 12/26/16 08:00 16:00 00:00 Intake Total 1105 ml 1401 ml 654 ml Output Total 250 ml 625 ml 350 ml Balance 855 ml 776 ml 304 ml Result Diagram: 12/26/16 0350 12/26/16 0350 Other Results Laboratory Tests Test 12/25/16 12/25/16 12/25/16 12/25/16 08:40 11:30 14:45 21:18 Activated Partial 27.0 SEC 26.6 SEC 25.2 SEC 25.8 SEC Thromboplast Time Fibrinogen 223 mg/dL 214 mg/dL 209 mg/dL White Blood Count 16.6 TH/MM3 Red Blood Count 4.34 MIL/MM3 Hemoglobin 12.6 GM/DL Hematocrit 38.6 % Mean Corpuscular Volume 89.1 FL Mean Corpuscular Hemoglobin 29.0 PG Mean Corpuscular Hemoglobin 32.5 % Concent Red Cell Distribution Width 13.9 % Platelet Count 204 TH/MM3 Mean Platelet Volume 8.9 FL Prothrombin Time 11.3 SEC Prothromb Time International 1.0 RATIO Ratio Test 12/26/16 03:50 White Blood Count 12.6 TH/MM3 Red Blood Count 4.05 MIL/MM3 Hemoglobin 11.8 GM/DL Hematocrit 36.1 % Mean Corpuscular Volume 89.2 FL Mean Corpuscular Hemoglobin 29.2 PG Mean Corpuscular Hemoglobin 32.8 % Concent Red Cell Distribution Width 13.9 % Platelet Count 174 TH/MM3 Mean Platelet Volume 9.2 FL Neutrophils (%) (Auto) 56.2 % Lymphocytes (%) (Auto) 35.1 % Monocytes (%) (Auto) 8.1 % Eosinophils (%) (Auto) 0.1 % Basophils (%) (Auto) 0.5 % Neutrophils # (Auto) 7.1 TH/MM3 Lymphocytes # (Auto) 4.4 TH/MM3 Monocytes # (Auto) 1.0 TH/MM3 Eosinophils # (Auto) 0.0 TH/MM3 Basophils # (Auto) 0.1 TH/MM3 CBC Comment DIFF FINAL Differential Comment Activated Partial 26.6 SEC Thromboplast Time Fibrinogen 178 mg/dL Sodium Level 142 MEQ/L Potassium Level 3.8 MEQ/L Chloride Level 107 MEQ/L Carbon Dioxide Level 27.6 MEQ/L Anion Gap 7 MEQ/L Blood Urea Nitrogen 25 MG/DL Creatinine 0.86 MG/DL Estimat Glomerular Filtration 68 ML/MIN Rate Random Glucose 126 MG/DL Calcium Level 8.1 MG/DL Imaging Last Impressions Chest X-Ray 12/24/16 1311 Signed Impressions: Service Date/Time: Saturday, December 24, 2016 13:15 - CONCLUSION: 1. No acute cardiopulmonary disease. Edwin Singh MD CT Angiography 12/24/16 1311 Signed Impressions: Service Date/Time: Saturday, December 24, 2016 15:48 - CONCLUSION: 1. Extensive pulmonary embolus. There is a saddle embolus with embolic material seen in both main right and left pulmonary arteries. uJve Ruelas MD Lower Extremity Ultrasound 12/24/16 0000 Signed Impressions: Service Date/Time: Saturday, December 24, 2016 18:33 - CONCLUSION: 1. Examination quality is less than optimal secondary to patient body habitus. Examination is suspicious for DVT within the left distal femoral vein. 2. There is incomplete compression of the right mid and distal femoral vein which could represent thrombus. Stephen Carolina MD Central Venous Line 12/24/16 0000 Signed Impressions: Service Date/Time: Saturday, December 24, 2016 17:28 - CONCLUSION: 1. Successful central line placement via the right internal jugular. 2. TPA infusion was initiated at 2 mg per hour for lysis of the patient's pulmonary embolus. Juve Ruelas MD Objective Remarks GENERAL: Patient is 56 yo lying in bed in no acute resp distress SKIN: Warm and dry. HEAD: Normocephalic. EYES: No scleral icterus. No injection or drainage. NECK: Supple, trachea midline. No JVD or lymphadenopathy. CARDIOVASCULAR: Regular rate and rhythm without murmurs, gallops, or rubs. RESPIRATORY: Breath sounds equal bilaterally. few scattered wheezing GASTROINTESTINAL: Abdomen soft, non-tender, nondistended. MUSCULOSKELETAL: No cyanosis,+ edema. Neuro: Awake and alert. A/P Assessment and Plan 1. Acute hypoxemic respiratory insufficiency..improving 2. Saddle pulmonary embolism. 3. Dyspnea secondary to PE. 4. Mild elevation in troponin secondary to PE. 5. Morbid obesity. 6. Hyperglycemia. 7. History of diabetes mellitus. 8. Hypertension. 9. Hyperlipidemia. 10. Leukocytosis, likely reactive. Plan: Neuro: Monitor neuro status and avoid any sedatives. Pulm: Oxygen PRN maintain sats > 92%. Bronchodilators, NIPPV PRN for respiratory distress. Continue with Heparin infusion per PE protocol. s/p TPA. Doppler US showed DVT LLE and ? thrombus RLE CV: Start Lopressor 50mg [id number] HR and BP and maintain MAP > 65 mmHg. Echo showed EF 60%, mode. decreased RV function and severely dilated. Mild pulm HTN PAP 40-50mmHg : Monitor renal function, Is and Os and electrolyte replacement per protocol. D/c IVF and Diurese with Bumex 1mg x1, d/c [facility] GI: on Protonix 40 mg IV daily for GI prophylaxis. On PO diet ID: Monitor for signs of infections(fever and WBC) WBC trending down. CXR in ER showed no evidence of any acute cardiopulmonary disease. Panculture if spikes a fever. Heme: Monitor CBC and coags-on Heparin infusion per PE protocol. Endo SSI ( medium scale) with Accu-Chek q.4 hours for glycemic control. GI prophylaxis with Protonix 40 mg daily and DVT prophylaxis with SCDs/heparin infusion. Will sign off and transfer care to [facility] Spoke to patient updated her on her condition all questions answered. Level 3 Shantelle Coulter MD Dec 26, 2016 08:39
[2016-12-26] MEDS ORDERED: BUMETANIDE INJ 1 MG/4 ML VIAL IV PUSH ONE (08:45)
[2016-12-26] MEDS: METOPROLOL TARTRATE 50 MG TAB PO SCH ×2 (09:15→20:31)
[2016-12-26 10:29] LABS: APTT (PATIENT) 27.3 SEC (24.3-30.1)
[2016-12-26] MEDS ORDERED: HEPARIN SODIUM - SQ 10,000 UNITS/ML VIAL ONE (12:43)
[2016-12-26] MEDS: HEPARIN SODIUM - IV 10,000 UNITS/10 ML VIAL IV PRN (12:47)
[2016-12-26] MEDS: hydrALAZINE HCL 20 MG/ML VIAL IV PUSH PRN ×2 (13:06→18:32)
[2016-12-26 14:39] LABS: MEAN CELL VOLUME 88.4 FL (80.0-100.0); MEAN CORPUSCULAR HEMOGLOBIN 29.1 PG (27.0-34.0); PLATELET COUNT 196 TH/MM3 (150-450); RED CELL DISTRIBUTION WIDTH 13.9 % (11.6-17.2); REVIEW FLAG FINAL
[2016-12-26 14:51] LABS: APTT (PATIENT) 46.4 SEC (24.3-30.1); PROTHROMBIN TIME - PATIENT 11.1 SEC (9.8-11.6)
[2016-12-26 17:11] LABS: APTT (PATIENT) 29.8 SEC (24.3-30.1)
[2016-12-26] MEDS ORDERED: HEPARIN SODIUM - IV 10,000 UNITS/10 ML VIAL IV PRN (17:45)
--- NOTE | 2016-12-26 20:32 | MB ---
cc: PATO COULTER M.D., RUBY ANNE E. M.D. DATE OF CONSULTATION 12/26/16 DATE OF [address] Coulter CHIEF COMPLAINT Dr. Coulter requested consultation for Ms. Lowery regarding saddle embolus pulmonary embolism. HISTORY OF PRESENT ILLNESS Ms. Lowery is a 56-year-old woman with hypertension, diabetes, hyperlipidemia, morbid obesity. Her body mass index is 57. She presented to the emergency room where she felt like she was dying. She felt tunneled vision. Her sight was blacking. She called EMS. She was having difficulty catching her breath. Doppler ultrasound of the lower extremity shows suspicious for deep vein thrombosis in the left distal femoral vein. There is incomplete compression of the right mid and distal femoral vein which could also represent a thrombus. CT angiogram showed extensive pulmonary embolus and a saddle embolus with embolic material seen in both mean right and left pulmonary arteries. She underwent catheter directed thrombolytic therapy. She is now on anticoagulant therapy with unfractionated heparin. Ms. Lowery is still mildly tachycardiac at the time of the consultation. She is able to talk. She is less short of breath. She describes 10 days ago driving back from [place]. Apparently, their trip started before that. They drove to [place] to visit her son's father. She visited an urgent care there as she had some left knee pain. She was told that she had arthritis. She has chronic venous insufficiency of both lower extremities. Both legs are chronically swollen. She did not notice that they were any worse. She reports being short of breath already then. After [place] they went to [place] and stayed there for some time. She reports being quite sedentary. She was able to do some walking but had less activity. She was be babying her left knee as it was hurting. She then was eager to get back home. They drove straight from [place] to the [facility] with minimal stopping. 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 When they got home she reports getting sick. She was short of breath. She was seen by her primary care physician who prescribed her a Medrol Dosepak and doxycycline. She did not improve. She continued to have bad coughing spell. And her symptoms of shortness of breath worsened til she presented with diagnosis saddle pulmonary emboli and bilateral lower extremity deep vein thromboses. She has been feeling well previous to this event. She has no personal history of venous thromboembolic event. They obtained history from a family member that an uncle had venous thromboembolic event, pulmonary embolism and . PAST MEDICAL HISTORY Past medical history of diabetes, hypertension, hyperlipidemia, morbid obesity. Saddle pulmonary embolism. Bilateral lower extremity deep vein thromboses. PAST SURGICAL HISTORY Tonsillectomy, cholecystectomy, , ankle and knee surgery. FAMILY HISTORY Father of car accident, age 69. Mother is alive with history of a stroke, in her 70s. ALLERGIES ALLERGIES TO SULFA. CURRENT MEDICATIONS 1. Unfractionated Heparin. 2. Lopressor. 3. Protonix. 4. Hydralazine. 5. Chlorhexidine. 6. DuoNebs. 7. Morphine. PHYSICAL EXAMINATION V VITAL SIGNS: Temperature 98.8, heart rate 85, respiratory rate 20, blood pressure 165/70, saturation 96%. GENERAL: Ms. Lowery is a well-developed morbidly obese woman. She has right internal jugular central line. LUNGS: Clear to auscultation. CARDIOVASCULAR: Exam reveals a normal rate, rhythm. ABDOMEN: Abdomen is large and benign. EXTREMITIES: lower extremity with chronic venous changes of both lower extremity, pulses are present. Edema is decreased. LABORATORY DATA Significant for mild leukocytosis, predominantly neutrophil, BUN elevated creatinine trending down, glucose 126, PTT 29.8 seconds, fibrinogen 242. SOCIAL HISTORY She is . Denies any tobacco, alcohol or illicit drug use. ASSESSMENT Ms. Lowery is a 56-year-old woman with multiple medical problems. We discussed her diagnosis of bilateral pulmonary embolism and bilateral lower extremity deep vein thromboses. I suspect that precipitating event is the long car ride up to [place], then to [place] and [facility] [place] [facility]. We discussed trigger for venous thromboembolic event is long periods of immobility. It appears that she was ill probably with a pulmonary embolism when they got back 10 days ago. This was misinterpreted as shortness of breath from upper respiratory infection. We discussed the risks and benefits of different anticoagulant therapies. We discussed availability of Coumadin, its mechanism of action and the need for PT/INR checking. The new oral anticoagulants avoid PT/INR checked. Unfortunately, for a person with a body mass index of 57, almost 58 these drugs have not been well tested. Therefore, it is hard to guess as to the therapeutic dose in patients with body mass index that are very extremely high. For this reason I recommend anticoagulant therapy with Coumadin. We would be able to titrate her anticoagulation based on PTT which is a measure of her coagulation regardless of her weight. We discussed the thrombophilia evaluation initiated. We discussed the family history that they gave with members dying of a pulmonary emboli. It is hard to know the circumstances which these events occur. The results of the thrombophilia are unlikely to change our management. At this point our goal is to keep her anticoagulated with a therapeutic level of unfractionated heparin until therapeutic INR is achieved. Information on Coumadin will be provided. Continue unfractionated heparin for now until she is more stable. She is still tachycardiac. Her thrombolytic therapy are being discontinued. Ultimately, we could use low-molecular weight heparin to bridge her. It is also difficult to guess on the ideal dose of low-molecular weight heparin, however, this will only be short-term to bridge her to a therapeutic INR. Ms. Lowery and her family's questions were answered to her satisfaction. Debora Guajardo MD RAD/EO /7:28 PM /8:14 PM
[2016-12-27] VITALS (12 sets, daily range): BP systolic 138–176; BP diastolic 63–81; PULSE 76–119; RESP 14–21; TEMP 97.5–98.6; O2SAT 93–97
[2016-12-27 01:09] LABS: APTT (PATIENT) 29.7 SEC (24.3-30.1)
[2016-12-27] MEDS: CHLORHEXIDINE GLUCONATE 2 % 1 PACK (2 CLOTHS) TOP SCH (04:00)
[2016-12-27] MEDS: INSULIN NovoLIN REGULAR SUPPLEMENTAL SCALE SQ SCH ×6 (04:00→20:47)
[2016-12-27] MEDS: RESP: ALBUTEROL 2.5 MG/IPRATROPIUM 0.5 MG NEB (SCH) INH ×6 (04:00→23:30)
[2016-12-27 06:26] LABS: AUTOMATED NEUTROPHIL # 5.5 TH/MM3 (1.8-7.7); BASOPHIL # 0.1 TH/MM3 (0-0.2); BASOPHIL % 0.7 % (0.0-2.0); EOSINOPHIL # 0.1 TH/MM3 (0-0.4); EOSINOPHIL % 1.3 % (0.0-4.0); HEMATOCRIT 36.4 % (35.0-46.0); HEMO FLAGS DIFF FINAL; LYMPH % 34.3 % (9.0-44.0); LYMPHOCYTE # 3.5 TH/MM3 (1.0-4.8); MEAN CELL VOLUME 88.7 FL (80.0-100.0); MEAN CORPUSCULAR HEMOGLOBIN 29.9 PG (27.0-34.0); MEAN CORPUSCULAR HGB CONC 33.7 % (32.0-36.0); MONO % 9.5 % (0.0-8.0); NEUT % 54.2 % (16.0-70.0); PLATELET COUNT 181 TH/MM3 (150-450); RED BLOOD COUNT 4.11 MIL/MM3 (4.00-5.30); RED CELL DISTRIBUTION WIDTH 13.7 % (11.6-17.2); WHITE BLOOD COUNT 10.2 TH/MM3 (4.0-11.0)
[2016-12-27 06:51] LABS: BICARBONATE 30.8 MEQ/L (21.0-32.0); POTASSIUM 3.6 MEQ/L (3.5-5.1)
[2016-12-27] MEDS: HEPARIN-D5W INJ 250 ML IV SCH (07:34)
[2016-12-27] MEDS: METOPROLOL TARTRATE 50 MG TAB PO SCH ×2 (07:57→20:37)
[2016-12-27] MEDS: PANTOPRAZOLE SODIUM 40 MG VIAL IV SCH (07:58)
[2016-12-27 08:04] LABS: APTT (PATIENT) 32.4 SEC (24.3-30.1)
[2016-12-27] MEDS: HEPARIN SODIUM - IV 10,000 UNITS/10 ML VIAL IV PRN ×2 (08:47→23:11)
--- NOTE | 2016-12-27 09:27 | PD.ONC.PN ---
Subjective Subjective Remarks Afebrile overnight. "I feel fine." PTT remains subtherapeutic. Denies chest pain or shortness of breath. Objective Data Date Time Temp Pulse Resp B/P Pulse Ox O2 Delivery O2 Flow Rate FiO2 12/27/16 08:16 94 12/27/16 06:00 82 12/27/16 04:00 83 12/27/16 04:00 98.0 83 14 165/75 94 12/27/16 02:00 79 12/27/16 00:00 98.6 81 19 157/67 96 12/27/16 00:00 81 12/26/16 22:00 90 12/26/16 20:00 94 21 12/26/16 20:00 98.4 96 17 170/69 95 12/26/16 20:00 96 12/26/16 18:00 95 12/26/16 16:00 98.8 85 20 165/70 96 12/26/16 16:00 85 12/26/16 14:00 87 12/26/16 12:00 84 12/26/16 12:00 98.2 84 20 123/58 95 12/26/16 10:00 96 12/27/16 12/27/16 12/27/16 06:59 14:59 22:59 Intake Total 153 ml Output Total 550 ml Balance -397 ml Result Diagram: 12/27/16 0457 12/27/16 0457 Laboratory Results Laboratory Tests Test 12/26/16 12/26/16 12/26/16 12/27/16 09:50 13:33 16:45 00:30 Activated Partial 27.3 SEC 46.4 SEC 29.8 SEC 29.7 SEC Thromboplast Time Fibrinogen 226 mg/dL 239 mg/dL 242 mg/dL White Blood Count 14.0 TH/MM3 Red Blood Count 4.30 MIL/MM3 Hemoglobin 12.5 GM/DL Hematocrit 38.0 % Mean Corpuscular Volume 88.4 FL Mean Corpuscular Hemoglobin 29.1 PG Mean Corpuscular Hemoglobin 33.0 % Concent Red Cell Distribution Width 13.9 % Platelet Count 196 TH/MM3 Mean Platelet Volume 9.4 FL Prothrombin Time 11.1 SEC Prothromb Time International 1.0 RATIO Ratio Test 12/27/16 12/27/16 04:57 07:30 White Blood Count 10.2 TH/MM3 Red Blood Count 4.11 MIL/MM3 Hemoglobin 12.3 GM/DL Hematocrit 36.4 % Mean Corpuscular Volume 88.7 FL Mean Corpuscular Hemoglobin 29.9 PG Mean Corpuscular Hemoglobin 33.7 % Concent Red Cell Distribution Width 13.7 % Platelet Count 181 TH/MM3 Mean Platelet Volume 9.0 FL Neutrophils (%) (Auto) 54.2 % Lymphocytes (%) (Auto) 34.3 % Monocytes (%) (Auto) 9.5 % Eosinophils (%) (Auto) 1.3 % Basophils (%) (Auto) 0.7 % Neutrophils # (Auto) 5.5 TH/MM3 Lymphocytes # (Auto) 3.5 TH/MM3 Monocytes # (Auto) 1.0 TH/MM3 Eosinophils # (Auto) 0.1 TH/MM3 Basophils # (Auto) 0.1 TH/MM3 CBC Comment DIFF FINAL Differential Comment Sodium Level 141 MEQ/L Potassium Level 3.6 MEQ/L Chloride Level 103 MEQ/L Carbon Dioxide Level 30.8 MEQ/L Anion Gap 7 MEQ/L Blood Urea Nitrogen 16 MG/DL Creatinine 0.81 MG/DL Estimat Glomerular Filtration 73 ML/MIN Rate Random Glucose 120 MG/DL Calcium Level 8.3 MG/DL Activated Partial 32.4 SEC Thromboplast Time Administered Medications Medications (Trade) Dose Ordered Sig/Vern Route PRN Reason Start Time Stop Time Status Last Admin Dose Admin Pantoprazole Sodium (Protonix Inj) 40 mg DAILY IV 12/25/16 09:00 12/27/16 07:58 Chlorhexidine Gluconate (Chlorhexidine 2% Cloth) 3 pack Taper DAILY@04 TOP 12/25/16 04:00 12/21/17 03:59 12/27/16 04:00 Hydralazine HCl (Apresoline Inj) 10 mg Q6H PRN IV PUSH SYS BP GREATER THAN 160 MMHG 12/25/16 08:15 12/26/16 18:32 Metoprolol Tartrate (Lopressor) 50 mg Q12HR PO 12/26/16 09:00 12/27/16 07:57 Heparin Sodium (Porcine) 2500 units 2,500 units UNSCH PRN IV APTT 25 TO 39 12/26/16 17:45 12/27/16 08:47 Heparin Sodium/ Dextrose (Heparin-D5W Inj) 250 ml @ 0 mls/hr TITRATE IV 12/26/16 12:00 12/27/16 07:34 Objective Remarks GENERAL: Middle aged obese female, upright in bed in nad. SKIN: Warm and dry. HEAD: Normocephalic. EYES: No injection or drainage. NECK: Supple, trachea midline. CARDIOVASCULAR: Regular rate and rhythm RESPIRATORY: Breath sounds equal bilaterally. No accessory muscle use. GASTROINTESTINAL: Abdomen soft, non-tender, nondistended. EXTREMITIES: No cyanosis NEUROLOGICAL: No obvious focal deficit. Awake, alert, and oriented x3. Assessment/Plan Problem List: (1) Pulmonary embolus Status: Acute Plan: --on heparin gtt U/S LE +DVT left distal femoral vein CTA: ++extensive pulmonary embolus and a saddle embolus with embolic material seen in both mean right and left pulmonary arteries. s/p TPA Assessment 56y/o female with saddle embolus pulmonary embolism. h/o hypertension, diabetes, hyperlipidemia, morbid obesity. Plan 1. continue heparin gtt--PTT remains subtherapeutic. per nursing staff no boluses given overnight. may need to titrate manually. will watch PTT today 2. monitor CBC 3. start coumadin once heparin therapeutic 4. fs faxed Attending Statement The exam, history, and the medical decision-making described in the above note were completed with the assistance of the mid-level provider. I reviewed and agree with the findings presented. I attest that I had a [id number] encounter with the patient on the same day, and personally performed and documented my assessment and findings in the medical record. Pt seen and examined. Still mildly tachycardic. Discussed plan to coordinate her heparin dose to therapeutic INR. Discussed risks and benefits of Coumadin. Start Coumadin tomorrow. Anticipate room change. Problem Qualifiers (1) Pulmonary embolus: Qualified Code: I26.92 - Acute saddle pulmonary embolism without acute cor pulmonale Adriana Jimenez Dec 27, 2016 09:27 Debora Guajardo MD Dec 28, 2016 13:35
[2016-12-27] MEDS ORDERED: ENALAPRILAT 1.25 MG/ML VIAL IV PUSH PRN (10:00)
--- NOTE | 2016-12-27 10:03 | HHI.PR ---
Subjective Remarks f/u; PE in no acute distress. currently off oxygen- denies pain. no other new complaints. d/w the RN. Objective Vitals Vital Signs Date Time Temp Pulse Resp B/P Pulse Ox O2 Delivery O2 Flow Rate FiO2 12/27/16 08:16 94 12/27/16 06:00 82 12/27/16 04:00 83 12/27/16 04:00 98.0 83 14 165/75 94 12/27/16 02:00 79 12/27/16 00:00 98.6 81 19 157/67 96 12/27/16 00:00 81 12/26/16 22:00 90 12/26/16 20:00 94 21 12/26/16 20:00 98.4 96 17 170/69 95 12/26/16 20:00 96 12/26/16 18:00 95 12/26/16 16:00 98.8 85 20 165/70 96 12/26/16 16:00 85 12/26/16 14:00 87 12/26/16 12:00 84 12/26/16 12:00 98.2 84 20 123/58 95 12/26/16 10:00 96 I/O 12/26/16 12/26/16 12/26/16 12/27/16 12/27/16 12/27/16 07:00 15:00 23:00 07:00 15:00 23:00 Intake Total 649 ml 434 ml 213 ml 153 ml Output Total 500 ml 2825 ml 450 ml 550 ml Balance 149 ml -2391 ml -237 ml -397 ml Intake Oral 100 ml 360 ml 120 ml 60 ml IV Total 549 ml 74 ml 93 ml 93 ml Output Urine Total 500 ml 2825 ml 450 ml 550 ml # Bowel Movements 0 0 Result Diagram: 12/27/16 0457 12/27/167 Imaging Last Impressions Chest X-Ray 12/24/16 1311 Signed Impressions: Service Date/Time: Saturday, December 24, 2016 13:15 - CONCLUSION: 1. No acute cardiopulmonary disease. Edwin Singh MD CT Angiography 12/24/16 1311 Signed Impressions: Service Date/Time: Saturday, December 24, 2016 15:48 - CONCLUSION: 1. Extensive pulmonary embolus. There is a saddle embolus with embolic material seen in both main right and left pulmonary arteries. Juve Ruelas MD Lower Extremity Ultrasound 12/24/16 0000 Signed Impressions: Service Date/Time: Saturday, December 24, 2016 18:33 - CONCLUSION: 1. Examination quality is less than optimal secondary to patient body habitus. Examination is suspicious for DVT within the left distal femoral vein. 2. There is incomplete compression of the right mid and distal femoral vein which could represent thrombus. Stephen Carolina MD Central Venous Line 12/24/16 0000 Signed Impressions: Service Date/Time: Saturday, December 24, 2016 17:28 - CONCLUSION: 1. Successful central line placement via the right internal jugular. 2. TPA infusion was initiated at 2 mg per hour for lysis of the patient's pulmonary embolus. Juve Ruelas MD Objective Remarks GENERAL: obese, in no apparent distress. CARDIOVASCULAR: Regular rate and regular rhythm without murmurs, gallops, or rubs. RESPIRATORY: Clear to auscultation. Breath sounds equal bilaterally. No wheezes , rales, or rhonchi. GASTROINTESTINAL: Abdomen soft, non-tender, nondistended. Normal, active bowel sounds MUSCULOSKELETAL: Extremities without clubbing, cyanosis, or edema. NEURO: Alert & Oriented x4 to person, place, time, situation. Moves all ext x4 Medications and IVs Current Medications Albuterol/ Ipratropium (Duoneb Neb) 1 ampule Q15M INH Last administered on 12/24 13:27; Start 12/24/16 at 13:15; Stop 12/24/16 at 13:46; Status DC Sodium Chloride (NS Flush) 2 ml UNSCH PRN IVF FLUSH AFTER USING IV ACCESS; Start 12/24/16 at 13:15 Methylprednisolone Sodium Succinate (SoluMEDROL INJ) 125 mg ONCE ONCE IVP Last administered on 12/24/16 13:20; Start 12/24/16 at 13:15; Stop 12/24/16 at 13:16; Status DC Iohexol (Omnipaque 350 Inj) 75 ml STK-MED ONCE IV ; Start 12/24/16 at 15:51; Stop 12/24/16 at 15:53; Status DC Heparin Sodium (Porcine) (Heparin Inj) 10,000 units ONCE ONCE IV ; Start at 16:15; Stop 12/24/16 at 16:16; Status DC Heparin Sodium (Porcine) (Heparin Inj) 5,000 units UNSCH PRN IV APTT LESS THAN 25; Start 12/24/16 at 22:15; Stop 12/24/16 at 22:15; Status DC Heparin Sodium (Porcine) 2500 units 2,500 units UNSCH PRN IV APTT 25 TO 39; Start 12/24/16 at 22:15; Stop 12/24/16 at 22:15; Status DC Heparin Sodium/ Dextrose (Heparin-D5W Inj) 250 ml @ 0 mls/hr TITRATE IV ; Start 12/24/16 at 16:15; Stop 12/24/16 at 21:44; Status DC Pantoprazole Sodium (Protonix Inj) 40 mg DAILY IV Last administered on 07:58; Start 12/25/16 at 09:00 Albuterol/ Ipratropium (Duoneb Neb) 1 ampule Q4HR NEB INH Last administered on 12/26/16 16:00; Start 12/24/16 at 20:00 Albuterol/ Ipratropium (Duoneb Neb) 1 ampule Q2HR NEB PRN INH WHEEZING; Start 12/24/16 at 17:15 Miscellaneous Information 1 [id number] XX ; Start 12/24/16 at 17:15 Chlorhexidine Gluconate (Chlorhexidine 2% Cloth) 3 pack Taper DAILY@04 TOP Last administered on 12/27/16 04:00; Start 12/25/16 at 04:00; Stop 12/21/17 at 03:59 Chlorhexidine Gluconate 3 pack 3 pack UNSCH PRN TOP HYGIENIC CARE; Start at 17:15 Sodium Chloride (NS 1000 ml Inj) 1,000 ml @ 75 mls/hr [id number] IV Last administered on 12/25/16 20:10; Start 12/24/16 at 17:30; Stop 12/26/16 at 08:35 ; Status DC Dextrose (D50w (Vial) Inj) 50 ml UNSCH PRN IV HYPOGLYCEMIA-SEE COMMENTS; Start 12/24/16 at 17:30 Glucagon (Glucagon Inj) 1 mg UNSCH PRN OTHER HYPOGLYCEMIA-SEE COMMENTS; Start 12/24/16 at 17:30 Insulin Human Regular 1 1 Q4HR SQ ; Start 12/24/16 at 17:30 Alteplase, Recombinant 10 mg/ Sodium Chloride 500 ml @ 0 mls/hr CONTINUOUS IV Last administered on 12/25/16 09:28; Start 12/24/16 at 19:45; Stop 12/25/16 at 10:02; Status DC Heparin Sodium (Porcine) 1000 units/Sodium Chloride 500 ml @ 10 mls/hr UNSCH PRN IV SEE LABEL COMMENTS; Start 12/24/16 at 19:45; Stop 12/25/16 at 14:16; Status DC Sodium Chloride 1,000 ml @ 30 mls/hr Q24H IV ; Start 12/24/16 at 20:00; Stop at 08:13; Status DC Heparin Sodium/ Dextrose (Heparin-D5W Inj) 250 ml @ 0 mls/hr TITRATE IV ; Start 12/24/16 at 19:45; Stop 12/25/16 at 14:17; Status DC Morphine Sulfate (Morphine Inj) 2 mg Q10M PRN IV PAIN SCALE 1 TO 4; Start 12/24 at 19:45 Hydralazine HCl 10 mg 10 mg Q6H PRN IV PUSH SYS BP GREATER THAN 160 MMHG Last administered on 12/26/16 18:32; Start 12/25/16 at 08:15 Heparin Sodium/ Dextrose (Heparin-D5W Inj) 250 ml @ 0 mls/hr TITRATE IV Last administered on 12/26/16 08:04; Start 12/25/16 at 14:15; Stop 12/26/16 at 11:36 ; Status DC Bumetanide (Bumex Inj) 1 mg ONCE ONCE IV PUSH Last administered on 12/26/16 09:16; Start 12/26/16 at 08:45; Stop 12/26/16 at 08:46; Status DC Metoprolol Tartrate (Lopressor) 50 mg Q12HR PO Last administered on 12/27/16 07:57; Start 12/26/16 at 09:00 Heparin Sodium (Porcine) (Heparin Inj) 5,000 units UNSCH PRN IV APTT LESS THAN 25; Start 12/26/16 at 17:45 Heparin Sodium (Porcine) 2500 units 2,500 units UNSCH PRN IV APTT 25 TO 39 Last administered on 12/27/16 08:47; Start 12/26/16 at 17:45 Heparin Sodium/ Dextrose (Heparin-D5W Inj) 250 ml @ 0 mls/hr TITRATE IV Last administered on 12/27/16 07:34; Start 12/26/16 at 12:00 Heparin Sodium (Porcine) (Heparin Inj) 10,000 units STK-MED ONCE .ROUTE ; Start 12/26/16 at 12:43; Stop 12/26/16 at 12:44; Status DC Patient Medication Teaching (Coumadin Booklet) 1 ONCE ONCE OTHER ; Start at 19:15; Stop 12/26/16 at 19:18; Status DC Patient Medication Teaching (Coumadin Booklet) 1 ONCE ONCE OTHER ; Start at 19:15; Stop 12/26/16 at 19:16; Status UNV A/P Assessment and Plan A/P 1. Acute hypoxemic respiratory insufficiency due to saddle pulmonary embolism.- improving venous doppler lower extremity with questionable DVT left distal femoral vein s/p TPA infusion. keep on oxygen as needed to keep O2 sat > 90%. continue with heparin drip. will start coumadin soon- hypercoagulable work- up pending- hematology following. walk test before discharge. 2. Mild elevation in troponin secondary to PE. 3. Morbid obesity- f/u as outpatient 4. diabetes mellitus; continue with accu-check with SSI. 5. Hypertension- not optimally controlled- continue metoprolol- will add lisinopril- vasotec as needed- continue to monitor BP and adjust the regimen as needed. dc jeff cath. consult PT. transfer to telemetry. d/w the Vivian Ellis MD Dec 27, 2016 10:03
[2016-12-27] MEDS: ENALAPRIL MALEATE 10 MG TAB PO SCH (11:01)
[2016-12-27 17:05] LABS: APTT (PATIENT) 31.7 SEC (24.3-30.1)
[2016-12-27 22:57] LABS: APTT (PATIENT) 33.2 SEC (24.3-30.1)
[2016-12-28] VITALS (8 sets, daily range): BP systolic 104–140; BP diastolic 56–61; PULSE 71–114; RESP 19–20; TEMP 96.6–98.3; O2SAT 93–96
[2016-12-28] MEDS: RESP: ALBUTEROL 2.5 MG/IPRATROPIUM 0.5 MG NEB (SCH) INH ×3 (03:25→11:12)
[2016-12-28] MEDS: HEPARIN-D5W INJ 250 ML IV SCH ×2 (03:34→21:04)
[2016-12-28] MEDS: CHLORHEXIDINE GLUCONATE 2 % 1 PACK (2 CLOTHS) TOP SCH (03:41)
[2016-12-28] MEDS: INSULIN NovoLIN REGULAR SUPPLEMENTAL SCALE SQ SCH ×6 (03:41→20:00)
[2016-12-28 05:52] LABS: HEMATOCRIT 35.2 % (35.0-46.0); MEAN CELL VOLUME 88.2 FL (80.0-100.0); MEAN CORPUSCULAR HEMOGLOBIN 29.4 PG (27.0-34.0); MEAN CORPUSCULAR HGB CONC 33.3 % (32.0-36.0); PLATELET COUNT 180 TH/MM3 (150-450); RED BLOOD COUNT 3.99 MIL/MM3 (4.00-5.30); RED CELL DISTRIBUTION WIDTH 13.7 % (11.6-17.2); REVIEW FLAG FINAL; WHITE BLOOD COUNT 10.5 TH/MM3 (4.0-11.0)
[2016-12-28 06:17] LABS: APTT (PATIENT) 42.4 SEC (24.3-30.1)
[2016-12-28] MEDS: PANTOPRAZOLE SOD 40 MG DELAYED RELEASE TAB PO SCH (08:28)
[2016-12-28] MEDS: METOPROLOL TARTRATE 50 MG TAB PO SCH ×2 (08:28→20:58)
[2016-12-28] MEDS: ENALAPRIL MALEATE 10 MG TAB PO SCH (08:28)
--- NOTE | 2016-12-28 11:02 | HHI.PR ---
Subjective Remarks f/u; PE resting comfortably with no distress. no sob or chest pain. no new complaints. Objective Vitals Vital Signs Date Time Temp Pulse Resp B/P Pulse Ox O2 Delivery O2 Flow Rate FiO2 12/28/16 08:00 96.6 89 19 122/60 93 12/28/16 04:00 97.9 72 20 131/60 95 12/28/16 04:00 Room Air 12/28/16 00:00 98.1 76 20 104/56 95 12/28/16 00:00 Room Air 12/27/16 20:04 116 12/27/16 20:00 98.0 119 21 138/63 97 12/27/16 20:00 Room Air 12/27/16 15:26 94 21 12/27/16 14:27 97.5 86 20 144/64 95 12/27/16 12:00 98.2 76 20 158/72 95 12/27/16 12:00 76 I/O 12/27/16 12/27/16 12/27/16 12/28/16 12/28/16 12/28/16 07:00 15:00 23:00 07:00 15:00 23:00 Intake Total 153 ml 240 ml 111 ml 340 ml Output Total 550 ml 375 ml Balance -397 ml -135 ml 111 ml 340 ml Intake Oral 60 ml 240 ml 240 ml IV Total 93 ml 111 ml 100 ml Output Urine Total 550 ml 375 ml # Voids 1 2 # Bowel Movements 0 Result Diagram: 12/28/16 0530 12/27/16 0457 Imaging Last Impressions Chest X-Ray 12/24/16 1311 Signed Impressions: Service Date/Time: Saturday, December 24, 2016 13:15 - CONCLUSION: 1. No acute cardiopulmonary disease. Edwin Singh MD CT Angiography 12/24/16 1311 Signed Impressions: Service Date/Time: Saturday, December 24, 2016 15:48 - CONCLUSION: 1. Extensive pulmonary embolus. There is a saddle embolus with embolic material seen in both main right and left pulmonary arteries. Juve Ruelas MD Lower Extremity Ultrasound 12/24/16 0000 Signed Impressions: Service Date/Time: Saturday, December 24, 2016 18:33 - CONCLUSION: 1. Examination quality is less than optimal secondary to patient body habitus. Examination is suspicious for DVT within the left distal femoral vein. 2. There is incomplete compression of the right mid and distal femoral vein which could represent thrombus. Stephen Carolina MD Central Venous Line 12/24/16 0000 Signed Impressions: Service Date/Time: Saturday, December 24, 2016 17:28 - CONCLUSION: 1. Successful central line placement via the right internal jugular. 2. TPA infusion was initiated at 2 mg per hour for lysis of the patient's pulmonary embolus. Juve Ruelas MD Objective Remarks GENERAL: obese, in no apparent distress. CARDIOVASCULAR: Regular rate and regular rhythm without murmurs, gallops, or rubs. RESPIRATORY: Clear to auscultation. Breath sounds equal bilaterally. No wheezes , rales, or rhonchi. GASTROINTESTINAL: Abdomen soft, non-tender, nondistended. Normal, active bowel sounds MUSCULOSKELETAL: Extremities without clubbing, cyanosis, or edema. NEURO: Alert & Oriented x4 to person, place, time, situation. Moves all ext x4 Procedures none Medications and IVs Current Medications Albuterol/ Ipratropium (Duoneb Neb) 1 ampule Q15M INH Last administered on 12/24 13:27; Start 12/24/16 at 13:15; Stop 12/24/16 at 13:46; Status DC Sodium Chloride (NS Flush) 2 ml UNSCH PRN IVF FLUSH AFTER USING IV ACCESS Last administered on 12/27/16 20:38; Start 12/24/16 at 13:15 Methylprednisolone Sodium Succinate (SoluMEDROL INJ) 125 mg ONCE ONCE IVP Last administered on 12/24/16 13:20; Start 12/24/16 at 13:15; Stop 12/24/16 at 13:16; Status DC Iohexol (Omnipaque 350 Inj) 75 ml STK-MED ONCE IV ; Start 12/24/16 at 15:51; Stop 12/24/16 at 15:53; Status DC Heparin Sodium (Porcine) (Heparin Inj) 10,000 units ONCE ONCE IV ; Start at 16:15; Stop 12/24/16 at 16:16; Status DC Heparin Sodium (Porcine) (Heparin Inj) 5,000 units UNSCH PRN IV APTT LESS THAN 25; Start 12/24/16 at 22:15; Stop 12/24/16 at 22:15; Status DC Heparin Sodium (Porcine) 2500 units 2,500 units UNSCH PRN IV APTT 25 TO 39; Start 12/24/16 at 22:15; Stop 12/24/16 at 22:15; Status DC Heparin Sodium/ Dextrose (Heparin-D5W Inj) 250 ml @ 0 mls/hr TITRATE IV ; Start 12/24/16 at 16:15; Stop 12/24/16 at 21:44; Status DC Pantoprazole Sodium (Protonix Inj) 40 mg DAILY IV Last administered on 07:58; Start 12/25/16 at 09:00; Stop 12/27/16 at 10:06; Status DC Albuterol/ Ipratropium (Duoneb Neb) 1 ampule Q4HR NEB INH Last administered on 12/27/16 15:26; Start 12/24/16 at 20:00 Albuterol/ Ipratropium (Duoneb Neb) 1 ampule Q2HR NEB PRN INH WHEEZING; Start 12/24/16 at 17:15 Miscellaneous Information 1 Q361D XX ; Start 12/24/16 at 17:15 Chlorhexidine Gluconate (Chlorhexidine 2% Cloth) 3 pack Taper DAILY@04 TOP Last administered on 12/27/16 04:00; Start 12/25/16 at 04:00; Stop 12/21/17 at 03:59 Chlorhexidine Gluconate 3 pack 3 pack UNSCH PRN TOP HYGIENIC CARE; Start at 17:15 Sodium Chloride (NS 1000 ml Inj) 1,000 ml @ 75 mls/hr [id number] IV Last administered on 12/25/16 20:10; Start 12/24/16 at 17:30; Stop 12/26/16 at 08:35 ; Status DC Dextrose (D50w (Vial) Inj) 50 ml UNSCH PRN IV HYPOGLYCEMIA-SEE COMMENTS; Start 12/24/16 at 17:30 Glucagon (Glucagon Inj) 1 mg UNSCH PRN OTHER HYPOGLYCEMIA-SEE COMMENTS; Start 12/24/16 at 17:30 Insulin Human Regular 1 1 Q4HR SQ Last administered on 12/27/16 20:47; Start 12/24/16 at 17:30 Alteplase, Recombinant 10 mg/ Sodium Chloride 500 ml @ 0 mls/hr CONTINUOUS IV Last administered on 12/25/16 09:28; Start 12/24/16 at 19:45; Stop 12/25/16 at 10:02; Status DC Heparin Sodium (Porcine) 1000 units/Sodium Chloride 500 ml @ 10 mls/hr UNSCH PRN IV SEE LABEL COMMENTS; Start 12/24/16 at 19:45; Stop 12/25/16 at 14:16; Status DC Sodium Chloride 1,000 ml @ 30 mls/hr Q24H IV ; Start 12/24/16 at 20:00; Stop at 08:13; Status DC Heparin Sodium/ Dextrose (Heparin-D5W Inj) 250 ml @ 0 mls/hr TITRATE IV ; Start 12/24/16 at 19:45; Stop 12/25/16 at 14:17; Status DC Morphine Sulfate (Morphine Inj) 2 mg Q10M PRN IV PAIN SCALE 1 TO 4; Start 12/24 at 19:45 Hydralazine HCl 10 mg 10 mg Q6H PRN IV PUSH SYS BP GREATER THAN 160 MMHG Last administered on 12/26/16 18:32; Start 12/25/16 at 08:15 Heparin Sodium/ Dextrose (Heparin-D5W Inj) 250 ml @ 0 mls/hr TITRATE IV Last administered on 12/26/16 08:04; Start 12/25/16 at 14:15; Stop 12/26/16 at 11:36 ; Status DC Bumetanide (Bumex Inj) 1 mg ONCE ONCE IV PUSH Last administered on 12/26/16 09:16; Start 12/26/16 at 08:45; Stop 12/26/16 at 08:46; Status DC Metoprolol Tartrate (Lopressor) 50 mg Q12HR PO Last administered on 12/28/16 08:28; Start 12/26/16 at 09:00 Heparin Sodium (Porcine) (Heparin Inj) 5,000 units UNSCH PRN IV APTT LESS THAN 25; Start 12/26/16 at 17:45 Heparin Sodium (Porcine) 2500 units 2,500 units UNSCH PRN IV APTT 25 TO 39 Last administered on 12/27/16 23:11; Start 12/26/16 at 17:45 Heparin Sodium/ Dextrose (Heparin-D5W Inj) 250 ml @ 0 mls/hr TITRATE IV Last administered on 12/28/16 03:34; Start 12/26/16 at 12:00 Heparin Sodium (Porcine) (Heparin Inj) 10,000 units STK-MED ONCE .ROUTE ; Start 12/26/16 at 12:43; Stop 12/26/16 at 12:44; Status DC Patient Medication Teaching (Coumadin Booklet) 1 ONCE ONCE OTHER Last administered on 12/26/16 19:15; Start 12/26/16 at 19:15; Stop 12/26/16 at 19:18 ; Status DC Patient Medication Teaching (Coumadin Booklet) 1 ONCE ONCE OTHER ; Start at 19:15; Stop 12/26/16 at 19:16; Status UNV Enalapril Maleate (Vasotec) 20 mg DAILY PO Last administered on 12/28/16 08:28 ; Start 12/27/16 at 10:30 Enalaprilat (Vasotec Inj) 1.25 mg Q8H PRN IV PUSH SBP> OR = 180, DBP> OR = 100 ; Start 12/27/16 at 10:00 Pantoprazole Sodium (Protonix) 40 mg DAILY PO Last administered on 12/28/16 08 :28; Start 12/28/16 at 09:00 Warfarin Sodium (Coumadin) 2.5 mg DAILY@16 PO ; Start 12/28/16 at 16:00 A/P Assessment and Plan A/P 1. Acute hypoxemic respiratory insufficiency due to saddle pulmonary embolism.- improving venous doppler lower extremity with questionable DVT left distal femoral vein s/p TPA infusion. keep on oxygen as needed to keep O2 sat > 90%. continue with heparin drip. will start coumadin today- dc heparin drip when INR is therapeutic. hypercoagulable work-up pending- hematology following. walk test before discharge. 2. Mild elevation in troponin secondary to PE. 3. Morbid obesity- f/u as outpatient 4. diabetes mellitus; continue with accu-check with SSI. 5. Hypertension- better controlled- continue metoprolol and lisinopril- vasotec as needed- continue to monitor BP and adjust the regimen as needed. dc jeff cath. consult PT. transfer to telemetry. d/w the RN. Discharge Planning dc home when INR is therapeutic. Vivian Wade MD Dec 28, 2016 11:02
--- NOTE | 2016-12-28 11:41 | PD.ONC.PN ---
Subjective Subjective Remarks Afebrile overnight. Patient resting in bed. Tolerating heparin gtt. No bleeding. Objective Data Date Time Temp Pulse Resp B/P Pulse Ox O2 Delivery O2 Flow Rate FiO2 12/28/16 08:00 96.6 89 19 122/60 93 12/28/16 04:00 97.9 72 20 131/60 95 12/28/16 04:00 Room Air 12/28/16 00:00 98.1 76 20 104/56 95 12/28/16 00:00 Room Air 12/27/16 20:04 116 12/27/16 20:00 98.0 119 21 138/63 97 12/27/16 20:00 Room Air 12/27/16 15:26 94 21 12/27/16 14:27 97.5 86 20 144/64 95 12/27/16 12:00 98.2 76 20 158/72 95 12/27/16 12:00 76 Result Diagram: 12/28/16 0530 12/27/16 0457 Laboratory Results Laboratory Tests Test 12/27/16 12/27/16 12/28/16 16:00 21:50 05:30 Activated Partial 31.7 SEC 33.2 SEC 42.4 SEC Thromboplast Time White Blood Count 10.5 TH/MM3 Red Blood Count 3.99 MIL/MM3 Hemoglobin 11.7 GM/DL Hematocrit 35.2 % Mean Corpuscular Volume 88.2 FL Mean Corpuscular Hemoglobin 29.4 PG Mean Corpuscular Hemoglobin 33.3 % Concent Red Cell Distribution Width 13.7 % Platelet Count 180 TH/MM3 Mean Platelet Volume 8.8 FL Administered Medications Medications (Trade) Dose Ordered Sig/Vern Route PRN Reason Start Time Stop Time Status Last Admin Dose Admin Sodium Chloride (NS Flush) 2 ml UNSCH PRN IVF FLUSH AFTER USING IV ACCESS 12/24/16 13:15 12/27/16 20:38 Chlorhexidine Gluconate (Chlorhexidine 2% Cloth) 3 pack Taper DAILY@04 TOP 12/25/16 04:00 12/21/17 03:59 12/27/16 04:00 Insulin Human Regular (NovoLIN R SUPPLEMENTAL SCALE) 1 Q4HR SQ 12/24/16 17:30 12/27/16 20:47 Hydralazine HCl (Apresoline Inj) 10 mg Q6H PRN IV PUSH SYS BP GREATER THAN 160 MMHG 12/25/16 08:15 12/26/16 18:32 Metoprolol Tartrate (Lopressor) 50 mg Q12HR PO 12/26/16 09:00 12/28/16 08:28 Heparin Sodium (Porcine) 2500 units 2,500 units UNSCH PRN IV APTT 25 TO 39 12/26/16 17:45 12/27/16 23:11 Heparin Sodium/ Dextrose (Heparin-D5W Inj) 250 ml @ 0 mls/hr TITRATE IV 12/26/16 12:00 12/28/16 03:34 Enalapril Maleate (Vasotec) 20 mg DAILY PO 12/27/16 10:30 12/28/16 08:28 Pantoprazole Sodium (Protonix) 40 mg DAILY PO 12/28/16 09:00 12/28/16 08:28 Objective Remarks GENERAL: Middle aged obese female, upright in bed in nad. SKIN: Warm and dry. right IJ, no bleeding. HEAD: Normocephalic. EYES: No injection or drainage. NECK: Supple, trachea midline. CARDIOVASCULAR: Regular rate and rhythm RESPIRATORY: Breath sounds equal bilaterally. No accessory muscle use. GASTROINTESTINAL: Abdomen soft, non-tender, nondistended. EXTREMITIES: No cyanosis NEUROLOGICAL: No obvious focal deficit. Awake, alert, and oriented x3. Assessment/Plan Problem List: (1) Pulmonary embolus Status: Acute Plan: --on heparin gtt bridge to coumadin U/S LE +DVT left distal femoral vein CTA: ++extensive pulmonary embolus and a saddle embolus with embolic material seen in both mean right and left pulmonary arteries. s/p TPA Assessment 56y/o female with saddle embolus pulmonary embolism. h/o hypertension, diabetes, hyperlipidemia, morbid obesity. Plan 1. continue heparin gtt 2. start coumadin 3. monitor CBC 3. plan follow up in clinic with Penny once discharged Attending Statement The exam, history, and the medical decision-making described in the above note were completed with the assistance of the mid-level provider. I reviewed and agree with the findings presented. I attest that I had a [id number]-sjhy encounter with the patient on the same day, and personally performed and documented my assessment and findings in the medical record. Pt seen and examined. Appetite very good, having lunch, no SOB, OOB sitting in chair. Discussed plans to use LMWH to bridge her to therapeutic INR. Start Coumadin today. Pt feels she can give injection. Observe and see if she can in preparation for DC. Follow up in hematology clinic for pt/inr check. Problem Qualifiers (1) Pulmonary embolus: Qualified Code: I26.92 - Acute saddle pulmonary embolism without acute cor pulmonale Adriana Jimenez Dec 28, 2016 11:41 Debora Guajardo MD Dec 28, 2016 13:37
[2016-12-28 12:33] LABS: APTT (PATIENT) 37.9 SEC (24.3-30.1)
[2016-12-28] MEDS ORDERED: WARFARIN SOD 2.5 MG TAB PO SCH (16:00)
[2016-12-28 21:11] LABS: APTT (PATIENT) 39.3 SEC (24.3-30.1)
[2016-12-28] MEDS: HEPARIN SODIUM - IV 10,000 UNITS/10 ML VIAL IV PRN (21:44)
[2016-12-28 23:54] LABS: THROMBIN TIME FOR LA ND sec (13-19)
[2016-12-29] VITALS (8 sets, daily range): BP systolic 101–140; BP diastolic 52–66; PULSE 71–99; RESP 18–20; TEMP 97.6–98.4; O2SAT 93–98
[2016-12-29 03:02] LABS: APTT (PATIENT) 50.4 SEC (24.3-30.1)
[2016-12-29] MEDS: CHLORHEXIDINE GLUCONATE 2 % 1 PACK (2 CLOTHS) TOP SCH (03:59)
[2016-12-29] MEDS: INSULIN NovoLIN REGULAR SUPPLEMENTAL SCALE SQ SCH ×6 (03:59→20:58)
[2016-12-29 06:42] LABS: HEMATOCRIT 35.5 % (35.0-46.0); MEAN CELL VOLUME 89.4 FL (80.0-100.0); MEAN CORPUSCULAR HEMOGLOBIN 28.8 PG (27.0-34.0); MEAN CORPUSCULAR HGB CONC 32.2 % (32.0-36.0); PLATELET COUNT 185 TH/MM3 (150-450); RED BLOOD COUNT 3.97 MIL/MM3 (4.00-5.30); RED CELL DISTRIBUTION WIDTH 13.8 % (11.6-17.2); REVIEW FLAG FINAL
[2016-12-29 06:57] LABS: PROTHROMBIN TIME - PATIENT 11.1 SEC (9.8-11.6)
--- NOTE | 2016-12-29 07:54 | HHI.PR ---
Subjective Remarks f/u; PE sitting on the chair with no distress. no sob or pain. no new complaints. Objective Vitals Vital Signs Date Time Temp Pulse Resp B/P Pulse Ox O2 Delivery O2 Flow Rate FiO2 12/29/16 04:00 97.6 81 20 140/60 94 12/29/16 04:00 Room Air 12/29/16 00:00 97.7 73 18 122/58 97 12/29/16 00:00 97.7 73 18 122/58 97 12/29/16 00:00 Room Air 12/28/16 20:00 98.1 99 20 140/61 93 12/28/16 20:00 Room Air 12/28/16 19:59 114 12/28/16 17:26 96 12/28/16 16:00 98.3 83 19 123/58 96 12/28/16 12:00 96.8 71 20 118/60 94 12/28/16 08:00 96.6 89 19 122/60 93 I/O 12/28/16 12/28/16 12/28/16 12/29/16 12/29/16 12/29/16 07:00 15:00 23:00 07:00 15:00 23:00 Intake Total 340 ml 480 ml 129 ml 122 ml Balance 340 ml 480 ml 129 ml 122 ml Intake Oral 240 ml 480 ml IV Total 100 ml 129 ml 122 ml # Voids 2 4 2 1 # Bowel Movements 2 Result Diagram: 12/29/16 0630 12/27/16 0457 Imaging Last Impressions Chest X-Ray 12/24/16 1311 Signed Impressions: Service Date/Time: Saturday, December 24, 2016 13:15 - CONCLUSION: 1. No acute cardiopulmonary disease. Edwin Singh MD CT Angiography 12/24/16 1311 Signed Impressions: Service Date/Time: Saturday, December 24, 2016 15:48 - CONCLUSION: 1. Extensive pulmonary embolus. There is a saddle embolus with embolic material seen in both main right and left pulmonary arteries. Juve Ruelas MD Lower Extremity Ultrasound 12/24/16 0000 Signed Impressions: Service Date/Time: Saturday, December 24, 2016 18:33 - CONCLUSION: 1. Examination quality is less than optimal secondary to patient body habitus. Examination is suspicious for DVT within the left distal femoral vein. 2. There is incomplete compression of the right mid and distal femoral vein which could represent thrombus. Stephen Carolina MD Central Venous Line 12/24/16 0000 Signed Impressions: Service Date/Time: Saturday, December 24, 2016 17:28 - CONCLUSION: 1. Successful central line placement via the right internal jugular. 2. TPA infusion was initiated at 2 mg per hour for lysis of the patient's pulmonary embolus. Juve Ruelas MD Objective Remarks GENERAL: obese, in no apparent distress. CARDIOVASCULAR: Regular rate and regular rhythm without murmurs, gallops, or rubs. RESPIRATORY: Clear to auscultation. Breath sounds equal bilaterally. No wheezes , rales, or rhonchi. GASTROINTESTINAL: Abdomen soft, non-tender, nondistended. Normal, active bowel sounds MUSCULOSKELETAL: Extremities without clubbing, cyanosis, or edema. NEURO: Alert & Oriented x4 to person, place, time, situation. Moves all ext x4 Procedures none Medications and IVs Current Medications Albuterol/ Ipratropium (Duoneb Neb) 1 ampule Q15M INH Last administered on 12/24 13:27; Start 12/24/16 at 13:15; Stop 12/24/16 at 13:46; Status DC Sodium Chloride (NS Flush) 2 ml UNSCH PRN IVF FLUSH AFTER USING IV ACCESS Last administered on 12/27/16 20:38; Start 12/24/16 at 13:15 Methylprednisolone Sodium Succinate (SoluMEDROL INJ) 125 mg ONCE ONCE IVP Last administered on 12/24/16 13:20; Start 12/24/16 at 13:15; Stop 12/24/16 at 13:16; Status DC Iohexol (Omnipaque 350 Inj) 75 ml STK-MED ONCE IV ; Start 12/24/16 at 15:51; Stop 12/24/16 at 15:53; Status DC Heparin Sodium (Porcine) (Heparin Inj) 10,000 units ONCE ONCE IV ; Start at 16:15; Stop 12/24/16 at 16:16; Status DC Heparin Sodium (Porcine) (Heparin Inj) 5,000 units UNSCH PRN IV APTT LESS THAN 25; Start 12/24/16 at 22:15; Stop 12/24/16 at 22:15; Status DC Heparin Sodium (Porcine) 2500 units 2,500 units UNSCH PRN IV APTT 25 TO 39; Start 12/24/16 at 22:15; Stop 12/24/16 at 22:15; Status DC Heparin Sodium/ Dextrose (Heparin-D5W Inj) 250 ml @ 0 mls/hr TITRATE IV ; Start 12/24/16 at 16:15; Stop 12/24/16 at 21:44; Status DC Pantoprazole Sodium (Protonix Inj) 40 mg DAILY IV Last administered on 07:58; Start 12/25/16 at 09:00; Stop 12/27/16 at 10:06; Status DC Albuterol/ Ipratropium (Duoneb Neb) 1 ampule Q4HR NEB INH Last administered on 12/27/16 15:26; Start 12/24/16 at 20:00; Stop 12/28/16 at 20:00; Status DC Albuterol/ Ipratropium (Duoneb Neb) 1 ampule Q2HR NEB PRN INH WHEEZING; Start 12/24/16 at 17:15 Miscellaneous Information 1 Q361D XX ; Start 12/24/16 at 17:15 Chlorhexidine Gluconate (Chlorhexidine 2% Cloth) 3 pack Taper DAILY@04 TOP Last administered on 12/27/16 04:00; Start 12/25/16 at 04:00; Stop 12/21/17 at 03:59 Chlorhexidine Gluconate 3 pack 3 pack UNSCH PRN TOP HYGIENIC CARE; Start at 17:15 Sodium Chloride (NS 1000 ml Inj) 1,000 ml @ 75 mls/hr [id number] IV Last administered on 12/25/16 20:10; Start 12/24/16 at 17:30; Stop 12/26/16 at 08:35 ; Status DC Dextrose (D50w (Vial) Inj) 50 ml UNSCH PRN IV HYPOGLYCEMIA-SEE COMMENTS; Start 12/24/16 at 17:30 Glucagon (Glucagon Inj) 1 mg UNSCH PRN OTHER HYPOGLYCEMIA-SEE COMMENTS; Start 12/24/16 at 17:30 Insulin Human Regular 1 1 Q4HR SQ Last administered on 12/28/16 20:00; Start 12/24/16 at 17:30 Alteplase, Recombinant 10 mg/ Sodium Chloride 500 ml @ 0 mls/hr CONTINUOUS IV Last administered on 12/25/16 09:28; Start 12/24/16 at 19:45; Stop 12/25/16 at 10:02; Status DC Heparin Sodium (Porcine) 1000 units/Sodium Chloride 500 ml @ 10 mls/hr UNSCH PRN IV SEE LABEL COMMENTS; Start 12/24/16 at 19:45; Stop 12/25/16 at 14:16; Status DC Sodium Chloride 1,000 ml @ 30 mls/hr Q24H IV ; Start 12/24/16 at 20:00; Stop at 08:13; Status DC Heparin Sodium/ Dextrose (Heparin-D5W Inj) 250 ml @ 0 mls/hr TITRATE IV ; Start 12/24/16 at 19:45; Stop 12/25/16 at 14:17; Status DC Morphine Sulfate (Morphine Inj) 2 mg Q10M PRN IV PAIN SCALE 1 TO 4; Start 12/24 at 19:45 Hydralazine HCl 10 mg 10 mg Q6H PRN IV PUSH SYS BP GREATER THAN 160 MMHG Last administered on 12/26/16 18:32; Start 12/25/16 at 08:15 Heparin Sodium/ Dextrose (Heparin-D5W Inj) 250 ml @ 0 mls/hr TITRATE IV Last administered on 12/26/16 08:04; Start 12/25/16 at 14:15; Stop 12/26/16 at 11:36 ; Status DC Bumetanide (Bumex Inj) 1 mg ONCE ONCE IV PUSH Last administered on 12/26/16 09:16; Start 12/26/16 at 08:45; Stop 12/26/16 at 08:46; Status DC Metoprolol Tartrate (Lopressor) 50 mg Q12HR PO Last administered on 12/28/16 20:58; Start 12/26/16 at 09:00 Heparin Sodium (Porcine) (Heparin Inj) 5,000 units UNSCH PRN IV APTT LESS THAN 25; Start 12/26/16 at 17:45 Heparin Sodium (Porcine) 2500 units 2,500 units UNSCH PRN IV APTT 25 TO 39 Last administered on 12/28/16 21:44; Start 12/26/16 at 17:45 Heparin Sodium/ Dextrose (Heparin-D5W Inj) 250 ml @ 0 mls/hr TITRATE IV Last administered on 12/28/16 21:04; Start 12/26/16 at 12:00 Heparin Sodium (Porcine) (Heparin Inj) 10,000 units STK-MED ONCE .ROUTE ; Start 12/26/16 at 12:43; Stop 12/26/16 at 12:44; Status DC Patient Medication Teaching (Coumadin Booklet) 1 ONCE ONCE OTHER Last administered on 12/26/16 19:15; Start 12/26/16 at 19:15; Stop 12/26/16 at 19:18 ; Status DC Patient Medication Teaching (Coumadin Booklet) 1 ONCE ONCE OTHER ; Start at 19:15; Stop 12/26/16 at 19:16; Status UNV Enalapril Maleate (Vasotec) 20 mg DAILY PO Last administered on 12/28/16 08:28 ; Start 12/27/16 at 10:30 Enalaprilat (Vasotec Inj) 1.25 mg Q8H PRN IV PUSH SBP> OR = 180, DBP> OR = 100 ; Start 12/27/16 at 10:00 Pantoprazole Sodium (Protonix) 40 mg DAILY PO Last administered on 12/28/16 08 :28; Start 12/28/16 at 09:00 Warfarin Sodium (Coumadin) 2.5 mg DAILY@16 PO Last administered on 12/28/16 17 :43; Start 12/28/16 at 16:00 A/P Assessment and Plan A/P 1. Acute hypoxemic respiratory insufficiency due to saddle pulmonary embolism.- improving venous doppler lower extremity with questionable DVT left distal femoral vein s/p TPA infusion. keep on oxygen as needed to keep O2 sat > 90%. continue with heparin drip and coumadin- dc heparin drip when INR is therapeutic. hypercoagulable work-up pending- hematology following. walk test before discharge. 2. Mild elevation in troponin secondary to PE. 3. positive hemocuult- on anticoagulation therapy- will consult GI- monitor H/H. 4. Morbid obesity- f/u as outpatient 5. diabetes mellitus; continue with accu-check with SSI. 6. Hypertension- better controlled- continue metoprolol and lisinopril- vasotec as needed- continue to monitor BP and adjust the regimen as needed. continue PT. Discharge Planning dc home within the next 48 hrs - awaiting hematology and GI recommendations. Vivian Wade MD Dec 29, 2016 07:54
--- NOTE | 2016-12-29 07:56 | HHI.FF ---
Face to Face Verification Diagnosis: (1) Pulmonary embolus (2) Hypertension Physical Therapy Order: Evaluate and Treat Home Health Nursing Order: Medical education Signs/symptoms of disease process Medication education-adverse effect Nursing assessment with vital signs Instructions: PT/INR monitoring. I have seen patient Ehsa Lowery on 12/29/16. My clinical findings support the need for the requested home health care services because: Patient has SOB I certify that my clinical findings support that this patient is homebound because: Hx COPD- exertion dyspnea/weakness Vivian Wade MD Dec 29, 2016 07:56
[2016-12-29] MEDS ORDERED: WALKER WHEELS/F1 MIS (07:57)
[2016-12-29 08:50] LABS: APTT (PATIENT) 47.4 SEC (24.3-30.1)
[2016-12-29] MEDS: METOPROLOL TARTRATE 50 MG TAB PO SCH ×2 (09:21→21:00)
[2016-12-29] MEDS: PANTOPRAZOLE SOD 40 MG DELAYED RELEASE TAB PO SCH (09:21)
[2016-12-29] MEDS: ENALAPRIL MALEATE 10 MG TAB PO SCH (09:21)
[2016-12-29] MEDS: ENOXAPARIN SODIUM 150 MG/ML SYRINGE SQ SCH ×2 (10:00→21:01)
--- NOTE | 2016-12-29 13:34 | PD.ONC.PN ---
Subjective Subjective Remarks Afebrile overnight. Patient resting in chair next to bed. Sister at bedside. No obvious bleeding but stool Hemoccult was positive. Objective Data Date Time Temp Pulse Resp B/P Pulse Ox O2 Delivery O2 Flow Rate FiO2 12/29/16 11:20 98 12/29/16 08:00 Room Air 12/29/16 08:00 98.2 94 20 117/58 95 12/29/16 04:00 97.6 81 20 140/60 94 12/29/16 04:00 Room Air 12/29/16 00:00 97.7 73 18 122/58 97 12/29/16 00:00 97.7 73 18 122/58 97 12/29/16 00:00 Room Air 12/28/16 20:00 98.1 99 20 140/61 93 12/28/16 20:00 Room Air 12/28/16 19:59 114 12/28/16 17:26 96 12/28/16 16:00 98.3 83 19 123/58 96 12/29/16 12/29/16 12/29/16 07:00 15:00 23:00 Intake Total 122 ml Balance 122 ml Result Diagram: 12/29/16 0630 12/27/16 0457 Laboratory Results Laboratory Tests Test 12/28/16 12/29/16 12/29/16 12/29/16 20:45 02:30 06:30 08:20 Activated Partial 39.3 SEC 50.4 SEC 47.4 SEC Thromboplast Time White Blood Count 12.0 TH/MM3 Red Blood Count 3.97 MIL/MM3 Hemoglobin 11.4 GM/DL Hematocrit 35.5 % Mean Corpuscular Volume 89.4 FL Mean Corpuscular Hemoglobin 28.8 PG Mean Corpuscular Hemoglobin 32.2 % Concent Red Cell Distribution Width 13.8 % Platelet Count 185 TH/MM3 Mean Platelet Volume 8.9 FL Prothrombin Time 11.1 SEC Prothromb Time International 1.0 RATIO Ratio Culture Results Microbiology Date/Time Procedure Status Source Growth 12/28/16 12:10 Stool Occult Blood (DANNIE) - Final Complete Stool Stool HEMOCCULT POSITIVE Administered Medications Medications (Trade) Dose Ordered Sig/Vern Route PRN Reason Start Time Stop Time Status Last Admin Dose Admin Sodium Chloride (NS Flush) 2 ml UNSCH PRN IVF FLUSH AFTER USING IV ACCESS 12/24/16 13:15 12/27/16 20:38 Chlorhexidine Gluconate (Chlorhexidine 2% Cloth) 3 pack Taper DAILY@04 TOP 12/25/16 04:00 12/21/17 03:59 12/27/16 04:00 Insulin Human Regular (NovoLIN R SUPPLEMENTAL SCALE) 1 Q4HR SQ 12/24/16 17:30 12/28/16 20:00 Hydralazine HCl (Apresoline Inj) 10 mg Q6H PRN IV PUSH SYS BP GREATER THAN 160 MMHG 12/25/16 08:15 12/26/16 18:32 Metoprolol Tartrate (Lopressor) 50 mg Q12HR PO 12/26/16 09:00 12/29/16 09:21 Enalapril Maleate (Vasotec) 20 mg DAILY PO 12/27/16 10:30 12/29/16 09:21 Pantoprazole Sodium (Protonix) 40 mg DAILY PO 12/28/16 09:00 12/29/16 09:21 Objective Remarks GENERAL: Pleasant obese female, sitting up in chair next to bed in [facility]. SKIN: Warm and dry. central line, right IJ, no bleeding. HEAD: Normocephalic. EYES: No injection or drainage. NECK: Supple, trachea midline. CARDIOVASCULAR: Regular rate and rhythm RESPIRATORY: Breath sounds equal bilaterally. No accessory muscle use. GASTROINTESTINAL: Abdomen soft, non-tender, nondistended. EXTREMITIES: No cyanosis NEUROLOGICAL: awake and alert, normal speech. Assessment/Plan Problem List: (1) Pulmonary embolus Status: Acute Plan: 12/29: start Lovenox bridge to coumadin U/S LE +DVT left distal femoral vein CTA: ++extensive pulmonary embolus and a saddle embolus with embolic material seen in both mean right and left pulmonary arteries. s/p TPA Assessment 56y/o female with saddle embolus pulmonary embolism. h/o hypertension, diabetes, hyperlipidemia, morbid obesity. Plan 1. continue Lovenox bridge to coumadin 2. ok to d/c when cleared by GI 3. follow up in clinic with ADRIANA Alonso once discharged Attending Statement The exam, history, and the medical decision-making described in the above note were completed with the assistance of the mid-level provider. I reviewed and agree with the findings presented. I attest that I had a [id number] encounter with the patient on the same day, and personally performed and documented my assessment and findings in the medical record. Pt seen and examined. Denies any overt blood, or melena, no hemorrhoids. Discussed concern for GI blood loss w/ heme positive stools. Continue LMWH, high risk in light of saddle embolism. Monitor hgb. Goal ultimately to bridge to therapeutic INR. Start Coumadin today. Problem Qualifiers (1) Pulmonary embolus: Qualified Code: I26.92 - Acute saddle pulmonary embolism without acute cor pulmonale Adriana Jimenez Dec 29, 2016 13:34 Debora Guajardo MD Dec 29, 2016 23:06
--- NOTE | 2016-12-29 15:34 | PD.CONS ---
HPI History of Present Illness This is a 56 year old [lady] with history HTN, DM presented to ER with SOB and cough, was found to have saddle PE. She received TPA. She had bronchitis previously and then didnt improve and 5 days ago had episode of SOB, tinnitus, and feeling like she was blacking out. GI has been consulted for pos hemoccult. She denies blood in stool, tarry stool, n/v, hematemesis, or abd pain. She is on lovenox and has started coumadin today. She does have hx frequent NSAID use. She has never had colonoscopy or EGD and denies any significant GI issues. PFSH Past Medical History saddle PE s/p TPA HTN DM obesity Past Surgical History tonsillectomy c section ORIF right ankle right meniscus repiar cholecystectomy Coded Allergies: Sulfa (Verified Allergy, Severe, HIVES, 05/18/15) Family History breast ca CVA AF HTN DM Social History no ETOH, tobacco use, or illicit drug use Review of Systems Constitutional: DENIES: Fever Eyes: DENIES: Blurred vision Ears, nose, mouth, throat: DENIES: Hearing loss Respiratory: DENIES: Wheezing Cardiovascular: DENIES: Palpitations Gastrointestinal: DENIES: Abdominal pain, Black stools, Bloody stools, Constipation, Diarrhea, Nausea, Vomiting, Hematemesis Genitourinary: DENIES: Hematuria Musculoskeletal: DENIES: Muscle aches Integumentary: DENIES: Rash Hematologic/lymphatic: DENIES: Bruising Neurologic: DENIES: Abnormal gait Psychiatric: DENIES: Confusion GI Exam Vitals I&O Vital Signs Date Time Temp Pulse Resp B/P Pulse Ox O2 Delivery O2 Flow Rate FiO2 12/29/16 12:00 98.4 71 18 103/66 94 12/29/16 11:20 98 12/29/16 08:00 Room Air 12/29/16 08:00 98.2 94 20 117/58 95 12/29/16 04:00 97.6 81 20 140/60 94 12/29/16 04:00 Room Air 12/29/16 00:00 97.7 73 18 122/58 97 12/29/16 00:00 97.7 73 18 122/58 97 12/29/16 00:00 Room Air 12/28/16 20:00 98.1 99 20 140/61 93 12/28/16 20:00 Room Air 12/28/16 19:59 114 12/28/16 17:26 96 12/28/16 16:00 98.3 83 19 123/58 96 I/O 12/28/16 12/28/16 12/28/16 12/29/16 12/29/16 12/29/16 07:00 15:00 23:00 07:00 15:00 23:00 Intake Total 340 ml 480 ml 129 ml 122 ml 59 ml Balance 340 ml 480 ml 129 ml 122 ml 59 ml Intake Oral 240 ml 480 ml IV Total 100 ml 129 ml 122 ml 59 ml # Voids 2 4 2 1 # Bowel Movements 2 Imaging Last Impressions Chest X-Ray 12/24/16 1311 Signed Impressions: Service Date/Time: Saturday, December 24, 2016 13:15 - CONCLUSION: 1. No acute cardiopulmonary disease. Edwin Singh MD CT Angiography 12/24/16 1311 Signed Impressions: Service Date/Time: Saturday, December 24, 2016 15:48 - CONCLUSION: 1. Extensive pulmonary embolus. There is a saddle embolus with embolic material seen in both main right and left pulmonary arteries. Juve Ruelas MD Lower Extremity Ultrasound 12/24/16 0000 Signed Impressions: Service Date/Time: Saturday, December 24, 2016 18:33 - CONCLUSION: 1. Examination quality is less than optimal secondary to patient body habitus. Examination is suspicious for DVT within the left distal femoral vein. 2. There is incomplete compression of the right mid and distal femoral vein which could represent thrombus. Stephen Carolina MD Central Venous Line 12/24/16 0000 Signed Impressions: Service Date/Time: Saturday, December 24, 2016 17:28 - CONCLUSION: 1. Successful central line placement via the right internal jugular. 2. TPA infusion was initiated at 2 mg per hour for lysis of the patient's pulmonary embolus. Juve Ruelas MD Laboratory Test 12/28/16 12/29/16 12/29/16 12/29/16 20:45 02:30 06:30 08:20 Activated Partial 39.3 SEC 50.4 SEC 47.4 SEC Thromboplast Time White Blood Count 12.0 TH/MM3 Red Blood Count 3.97 MIL/MM3 Hemoglobin 11.4 GM/DL Hematocrit 35.5 % Mean Corpuscular Volume 89.4 FL Mean Corpuscular Hemoglobin 28.8 PG Mean Corpuscular Hemoglobin 32.2 % Concent Red Cell Distribution Width 13.8 % Platelet Count 185 TH/MM3 Mean Platelet Volume 8.9 FL Prothrombin Time 11.1 SEC Prothromb Time International 1.0 RATIO Ratio Date/Time Procedure Status Source Growth 12/28/16 12:10 Stool Occult Blood (DANNIE) - Final Complete Stool Stool HEMOCCULT POSITIVE Physical Examination HEENT: PERRL; atraumatic; no jaundice. CHEST: CTA CARDIAC: RRR ABDOMEN: Soft, obese, nontender; no hepatosplenomegaly; bowel sounds are present in all four quadrants. EXTREMITIES: No clubbing, cyanosis, or edema. discoloration BLE SKIN: Normal; no rash; no jaundice. ZOOKEEPER: No focal deficits; alert and oriented times three. Assessment and Plan Plan ASSESSMENT - anemia - mild and only just today 11.4 gradual drop since admission. pt denies bleeding. - hemoccult pos stool - never had EGD/colon - PE - per primary, s/p TPA PLAN - colonoscopy EGD as outpatient - monitor HH - notify GI of active bleeding - further recommendations to follow THis pt seen by Dr Rondon and myself and this note is written on his behalf. Jeny Rosario Dec 29, 2016 15:34
[2016-12-29] MEDS ORDERED: WARFARIN SOD 5 MG TAB PO SCH (16:00)
[2016-12-30] VITALS: BP 111/53; PULSE 82; RESP 18; TEMP 97.5; O2SAT 93
[2016-12-30 04:00] VITALS: BP 128/60; PULSE 88; RESP 18; TEMP 97.6; O2SAT 93
[2016-12-30] MEDS: INSULIN NovoLIN REGULAR SUPPLEMENTAL SCALE SQ SCH ×4 (04:00→12:00)
[2016-12-30] MEDS: CHLORHEXIDINE GLUCONATE 2 % 1 PACK (2 CLOTHS) TOP SCH (04:00)
[2016-12-30 07:15] LABS: HEMATOCRIT 34.9 % (35.0-46.0); MEAN CELL VOLUME 89.9 FL (80.0-100.0); MEAN CORPUSCULAR HEMOGLOBIN 28.9 PG (27.0-34.0); MEAN CORPUSCULAR HGB CONC 32.2 % (32.0-36.0); PLATELET COUNT 194 TH/MM3 (150-450); RED BLOOD COUNT 3.88 MIL/MM3 (4.00-5.30); RED CELL DISTRIBUTION WIDTH 13.8 % (11.6-17.2); REVIEW FLAG FINAL; WHITE BLOOD COUNT 10.7 TH/MM3 (4.0-11.0)
[2016-12-30 08:00] VITALS: BP 116/57; PULSE 90; RESP 18; TEMP 97.8; O2SAT 96
[2016-12-30] MEDS: ENALAPRIL MALEATE 10 MG TAB PO SCH (08:55)
[2016-12-30] MEDS: PANTOPRAZOLE SOD 40 MG DELAYED RELEASE TAB PO SCH (08:55)
[2016-12-30] MEDS: METOPROLOL TARTRATE 50 MG TAB PO SCH (08:55)
[2016-12-30] MEDS: ENOXAPARIN SODIUM 150 MG/ML SYRINGE SQ SCH (09:01)
[2016-12-30 09:40] VITALS: O2SAT 98
--- NOTE | 2016-12-30 10:16 | HHI.PR ---
Subjective Remarks sitting on the chair with no acute distress. no chest pain or sob. no new complaints. Objective Vitals Vital Signs Date Time Temp Pulse Resp B/P Pulse Ox O2 Delivery O2 Flow Rate FiO2 12/30/16 08:00 97.8 90 18 116/57 96 12/30/16 04:00 97.6 88 18 128/60 93 12/30/16 00:00 97.5 82 18 111/53 93 12/29/16 20:00 98.0 94 18 102/54 96 12/29/16 20:00 99 12/29/16 20:00 Room Air 12/29/16 16:00 98.0 91 20 101/52 93 12/29/16 12:00 98.4 71 18 103/66 94 12/29/16 11:20 98 I/O 12/29/16 12/29/16 12/29/16 12/30/16 12/30/16 12/30/16 07:00 15:00 23:00 07:00 15:00 23:00 Intake Total 122 ml 539 ml 240 ml Output Total 0 ml Balance 122 ml 539 ml 240 ml 0 ml Intake Oral 480 ml 240 ml IV Total 122 ml 59 ml Output Urine Total 0 ml # Voids 1 3 1 # Bowel Movements 1 0 0 Result Diagram: 12/30/16 0640 12/27/16 0457 Imaging Last Impressions Chest X-Ray 12/24/16 1311 Signed Impressions: Service Date/Time: Saturday, December 24, 2016 13:15 - CONCLUSION: 1. No acute cardiopulmonary disease. Edwin Singh MD CT Angiography 12/24/16 1311 Signed Impressions: Service Date/Time: Saturday, December 24, 2016 15:48 - CONCLUSION: 1. Extensive pulmonary embolus. There is a saddle embolus with embolic material seen in both main right and left pulmonary arteries. Juve Ruelas MD Lower Extremity Ultrasound 12/24/16 0000 Signed Impressions: Service Date/Time: Saturday, December 24, 2016 18:33 - CONCLUSION: 1. Examination quality is less than optimal secondary to patient body habitus. Examination is suspicious for DVT within the left distal femoral vein. 2. There is incomplete compression of the right mid and distal femoral vein which could represent thrombus. Stephen Carolina MD Central Venous Line 12/24/16 0000 Signed Impressions: Service Date/Time: Saturday, December 24, 2016 17:28 - CONCLUSION: 1. Successful central line placement via the right internal jugular. 2. TPA infusion was initiated at 2 mg per hour for lysis of the patient's pulmonary embolus. Juve Ruelas MD Objective Remarks GENERAL: obese, in no apparent distress. CARDIOVASCULAR: Regular rate and regular rhythm without murmurs, gallops, or rubs. RESPIRATORY: Clear to auscultation. Breath sounds equal bilaterally. No wheezes , rales, or rhonchi. GASTROINTESTINAL: Abdomen soft, non-tender, nondistended. Normal, active bowel sounds MUSCULOSKELETAL: Extremities without clubbing, cyanosis, or edema. NEURO: Alert & Oriented x4 to person, place, time, situation. Moves all ext x4 Procedures none Medications and IVs Current Medications Albuterol/ Ipratropium (Duoneb Neb) 1 ampule Q15M INH Last administered on 12/24 13:27; Start 12/24/16 at 13:15; Stop 12/24/16 at 13:46; Status DC Sodium Chloride (NS Flush) 2 ml UNSCH PRN IVF FLUSH AFTER USING IV ACCESS Last administered on 12/27/16 20:38; Start 12/24/16 at 13:15 Methylprednisolone Sodium Succinate (SoluMEDROL INJ) 125 mg ONCE ONCE IVP Last administered on 12/24/16 13:20; Start 12/24/16 at 13:15; Stop 12/24/16 at 13:16; Status DC Iohexol (Omnipaque 350 Inj) 75 ml STK-MED ONCE IV ; Start 12/24/16 at 15:51; Stop 12/24/16 at 15:53; Status DC Heparin Sodium (Porcine) (Heparin Inj) 10,000 units ONCE ONCE IV ; Start at 16:15; Stop 12/24/16 at 16:16; Status DC Heparin Sodium (Porcine) (Heparin Inj) 5,000 units UNSCH PRN IV APTT LESS THAN 25; Start 12/24/16 at 22:15; Stop 12/24/16 at 22:15; Status DC Heparin Sodium (Porcine) 2500 units 2,500 units UNSCH PRN IV APTT 25 TO 39; Start 12/24/16 at 22:15; Stop 12/24/16 at 22:15; Status DC Heparin Sodium/ Dextrose (Heparin-D5W Inj) 250 ml @ 0 mls/hr TITRATE IV ; Start 12/24/16 at 16:15; Stop 12/24/16 at 21:44; Status DC Pantoprazole Sodium (Protonix Inj) 40 mg DAILY IV Last administered on 07:58; Start 12/25/16 at 09:00; Stop 12/27/16 at 10:06; Status DC Albuterol/ Ipratropium (Duoneb Neb) 1 ampule Q4HR NEB INH Last administered on 12/27/16 15:26; Start 12/24/16 at 20:00; Stop 12/28/16 at 20:00; Status DC Albuterol/ Ipratropium (Duoneb Neb) 1 ampule Q2HR NEB PRN INH WHEEZING; Start 12/24/16 at 17:15 Miscellaneous Information 1 Q361D XX ; Start 12/24/16 at 17:15 Chlorhexidine Gluconate (Chlorhexidine 2% Cloth) Taper DAILY@04 TOP Last administered on 12/27/16 04:00; Start 12/25/16 at 04:00; Stop 12/21/17 at 03:59 Chlorhexidine Gluconate 3 pack 3 pack UNSCH PRN TOP HYGIENIC CARE; Start at 17:15 Sodium Chloride (NS 1000 ml Inj) 1,000 ml @ 75 mls/hr [id number] IV Last administered on 12/25/16 20:10; Start 12/24/16 at 17:30; Stop 12/26/16 at 08:35 ; Status DC Dextrose (D50w (Vial) Inj) 50 ml UNSCH PRN IV HYPOGLYCEMIA-SEE COMMENTS; Start 12/24/16 at 17:30 Glucagon (Glucagon Inj) 1 mg UNSCH PRN OTHER HYPOGLYCEMIA-SEE COMMENTS; Start 12/24/16 at 17:30 Insulin Human Regular 1 1 Q4HR SQ Last administered on 12/29/16 20:58; Start 12/24/16 at 17:30 Alteplase, Recombinant 10 mg/ Sodium Chloride 500 ml @ 0 mls/hr CONTINUOUS IV Last administered on 12/25/16 09:28; Start 12/24/16 at 19:45; Stop 12/25/16 at 10:02; Status DC Heparin Sodium (Porcine) 1000 units/Sodium Chloride 500 ml @ 10 mls/hr UNSCH PRN IV SEE LABEL COMMENTS; Start 12/24/16 at 19:45; Stop 12/25/16 at 14:16; Status DC Sodium Chloride 1,000 ml @ 30 mls/hr Q24H IV ; Start 12/24/16 at 20:00; Stop at 08:13; Status DC Heparin Sodium/ Dextrose (Heparin-D5W Inj) 250 ml @ 0 mls/hr TITRATE IV ; Start 12/24/16 at 19:45; Stop 12/25/16 at 14:17; Status DC Morphine Sulfate (Morphine Inj) 2 mg Q10M PRN IV PAIN SCALE 1 TO 4; Start 12/24 at 19:45 Hydralazine HCl 10 mg 10 mg Q6H PRN IV PUSH SYS BP GREATER THAN 160 MMHG Last administered on 12/26/16 18:32; Start 12/25/16 at 08:15 Heparin Sodium/ Dextrose (Heparin-D5W Inj) 250 ml @ 0 mls/hr TITRATE IV Last administered on 12/26/16 08:04; Start 12/25/16 at 14:15; Stop 12/26/16 at 11:36 ; Status DC Bumetanide (Bumex Inj) 1 mg ONCE ONCE IV PUSH Last administered on 12/26/16 09:16; Start 12/26/16 at 08:45; Stop 12/26/16 at 08:46; Status DC Metoprolol Tartrate (Lopressor) 50 mg Q12HR PO Last administered on 12/30/16 08:55; Start 12/26/16 at 09:00 Heparin Sodium (Porcine) (Heparin Inj) 5,000 units UNSCH PRN IV APTT LESS THAN 25; Start 12/26/16 at 17:45; Status Cancel Heparin Sodium (Porcine) 2500 units 2,500 units UNSCH PRN IV APTT 25 TO 39 Last administered on 12/28/16 21:44; Start 12/26/16 at 17:45; Stop 12/29/16 at 08:43; Status DC Heparin Sodium/ Dextrose (Heparin-D5W Inj) 250 ml @ 0 mls/hr TITRATE IV Last administered on 12/28/16 21:04; Start 12/26/16 at 12:00; Stop 12/29/16 at 08:43 ; Status DC Heparin Sodium (Porcine) (Heparin Inj) 10,000 units STK-MED ONCE .ROUTE ; Start 12/26/16 at 12:43; Stop 12/26/16 at 12:44; Status DC Patient Medication Teaching (Coumadin Booklet) 1 ONCE ONCE OTHER Last administered on 12/26/16 19:15; Start 12/26/16 at 19:15; Stop 12/26/16 at 19:18 ; Status DC Patient Medication Teaching (Coumadin Booklet) 1 ONCE ONCE OTHER ; Start at 19:15; Stop 12/26/16 at 19:16; Status UNV Enalapril Maleate (Vasotec) 20 mg DAILY PO Last administered on 12/30/16 08:55 ; Start 12/27/16 at 10:30 Enalaprilat (Vasotec Inj) 1.25 mg Q8H PRN IV PUSH SBP> OR = 180, DBP> OR = 100 ; Start 12/27/16 at 10:00 Pantoprazole Sodium (Protonix) 40 mg DAILY PO Last administered on 12/30/16 08 :55; Start 12/28/16 at 09:00 Warfarin Sodium (Coumadin) 2.5 mg DAILY@16 PO Last administered on 12/28/16 17 :43; Start 12/28/16 at 16:00; Stop 12/29/16 at 08:49; Status DC Enoxaparin Sodium (Lovenox Inj) 150 mg Q12H SQ Last administered on 12/30/16 09:01; Start 12/29/16 at 10:00 Warfarin Sodium (Coumadin) 5 mg DAILY@1600 PO Last administered on 12/29/16 17 :21; Start 12/29/16 at 16:00 A/P Assessment and Plan A/P 1. Acute hypoxemic respiratory insufficiency due to saddle pulmonary embolism.- improving venous doppler lower extremity with questionable DVT left distal femoral vein s/p TPA infusion. walk test performed and the patient passed the test; no need for home oxygen. continue with lovenox and coumadin- hypercoagulable work-up pending- hematology following. 2. Mild elevation in troponin secondary to PE. 3. positive hemocuult- on anticoagulation therapy- GI consult appreciated and plan for GI work-up as outpatient. 4. Morbid obesity- f/u as outpatient 5. diabetes mellitus; continue with accu-check with SSI. 6. Hypertension- better controlled- continue metoprolol and lisinopril- vasotec as needed- continue to monitor BP and adjust the regimen as needed. continue PT. Discharge Planning dc home today with f/u with pcp,hematology and GI. see med list. case management for HHC. PT/INR monitoring as outpatient. d/w the patient. d/w the hematology PA. time spent 35 min. Vivian Wade MD Dec 30, 2016 10:16
[2016-12-30] MEDS ORDERED: ENOX150P SQ (10:18)
[2016-12-30] MEDS ORDERED: COUM5TAB PO (10:18)
--- NOTE | 2016-12-30 10:19 | HHI.DCPOC ---
Discharge Care Plan Diagnosis: (1) Pulmonary embolus Your Health Problems Are: Shortness of Breath Goals to Promote Your Health * To prevent worsening of your condition and complications * To maintain your health at the optimal level Directions to Meet Your Goals Take your medications as prescribed Follow your dietary instruction Follow activity as directed Keep your appointments as scheduled Take your immunizations and boosters as scheduled If your symptoms worsen call your PCP, if no PCP go to Urgent Care Center or Emergency Room Smoking is Dangerous to Your Health. Avoid second hand smoke Call the 24-hour hour crisis hotline for domestic abuse at Vivian Wade MD Dec 30, 2016 10:19
--- NOTE | 2016-12-30 10:24 | HHI.DS ---
Discharge Summary Admission Date Dec 24, 2016 at 16:35 Discharge Date: Dec 30, 2016 Admitting Diagnosis pulmonary embolism (1) Pulmonary embolus ICD Code: I26.99 Diagnosis: Principal Procedures none Brief History - From Admission The patient is a 56-year-old female with a past medical history of hypertension, diabetes mellitus, hyperlipidemia and morbid obesity who presented to [facility] ED for evaluation of progressive shortness of breath associated with cough. The patient states that she went to her primary care doctor approximately one week ago and was diagnosed with bronchitis and she was given antibiotics, doxycycline and Medrol Dosepak in addition to Ventolin inhaler as needed. Her symptoms have persisted and when she went back for a followup on Thursday she was given additional antibiotics of Cefdinir. She reports progressive worsening shortness of breath for the past several days. CBC/BMP: 12/30/16 0640 12/27/16 0457 Significant Findings Laboratory Tests Test 12/27/16 12/27/16 12/28/16 12/28/16 16:00 21:50 05:30 12:10 Activated Partial 31.7 SEC 33.2 SEC 42.4 SEC 37.9 SEC Thromboplast Time (24.3-30.1) (24.3-30.1) (24.3-30.1) (24.3-30.1) Red Blood Count 3.99 MIL/MM3 (4.00-5.30) Test 12/28/16 12/29/16 12/29/16 12/29/16 20:45 02:30 06:30 08:20 Activated Partial 39.3 SEC 50.4 SEC 47.4 SEC Thromboplast Time (24.3-30.1) (24.3-30.1) (24.3-30.1) White Blood Count 12.0 TH/MM3 (4.0-11.0) Red Blood Count 3.97 MIL/MM3 (4.00-5.30) Hemoglobin 11.4 GM/DL (11.6-15.3) Test 12/30/16 06:40 Red Blood Count 3.88 MIL/MM3 (4.00-5.30) Hemoglobin 11.2 GM/DL (11.6-15.3) Hematocrit 34.9 % (35.0-46.0) Imaging Last Impressions Chest X-Ray 12/24/16 1311 Signed Impressions: Service Date/Time: Saturday, December 24, 2016 13:15 - CONCLUSION: 1. No acute cardiopulmonary disease. Edwin Singh MD CT Angiography 12/24/16 1311 Signed Impressions: Service Date/Time: Saturday, December 24, 2016 15:48 - CONCLUSION: 1. Extensive pulmonary embolus. There is a saddle embolus with embolic material seen in both main right and left pulmonary arteries. Juve Ruelas MD Lower Extremity Ultrasound 12/24/16 0000 Signed Impressions: Service Date/Time: Saturday, December 24, 2016 18:33 - CONCLUSION: 1. Examination quality is less than optimal secondary to patient body habitus. Examination is suspicious for DVT within the left distal femoral vein. 2. There is incomplete compression of the right mid and distal femoral vein which could represent thrombus. Stephen Carolina MD Central Venous Line 12/24/16 0000 Signed Impressions: Service Date/Time: Saturday, December 24, 2016 17:28 - CONCLUSION: 1. Successful central line placement via the right internal jugular. 2. TPA infusion was initiated at 2 mg per hour for lysis of the patient's pulmonary embolus. Juve Ruelas MD PE at Discharge GENERAL: obese, in no apparent distress. CARDIOVASCULAR: Regular rate and regular rhythm without murmurs, gallops, or rubs. RESPIRATORY: Clear to auscultation. Breath sounds equal bilaterally. No wheezes , rales, or rhonchi. GASTROINTESTINAL: Abdomen soft, non-tender, nondistended. Normal, active bowel sounds MUSCULOSKELETAL: Extremities without clubbing, cyanosis, or edema. NEURO: Alert & Oriented x4 to person, place, time, situation. Moves all ext x4 Hospital Course 1. Acute hypoxemic respiratory insufficiency due to saddle pulmonary embolism.- improving venous doppler lower extremity with questionable DVT left distal femoral vein s/p TPA infusion. walk test performed and the patient passed the test; no need for home oxygen. continue with lovenox and coumadin- hypercoagulable work-up pending- hematology following. 2. Mild elevation in troponin secondary to PE. 3. positive hemocuult- on anticoagulation therapy- GI consult appreciated and plan for GI work-up as outpatient. 4. Morbid obesity- f/u as outpatient 5. diabetes mellitus; continue with accu-check with SSI. 6. Hypertension- better controlled- continue metoprolol and lisinopril- vasotec as needed- continue to monitor BP and adjust the regimen as needed. Pt Condition on Discharge: Stable Discharge Disposition: Disch w/ Home Health Serv Discharge Time: > 30 minutes Discharge Instructions DIET: Follow Instructions for: Heart Healthy Diet, Diabetic Diet Activities you can perform: Regular-No Restrictions Follow up Referrals: Oncology - 1 Week with Penny Salazar PCP Follow-up New Medications: Walker with Front Wheels (Walker with Front Wheels) 1 Mis Mis 1 EA .ROUTE DIRECTED #1 Ref 0 EA Enoxaparin Inj (Lovenox Inj) 150 Mg/Ml Syr 150 MG SQ Q12H blood clot Days 4 Ref 0 INJECTION Warfarin (Coumadin) 5 Mg Tab 5 MG PO DAILY@1600 blood clot Days 30 Ref 0 TAB Continued Medications: Albiglutide 4-Pack Inj (Tanzeum 4-Pack Inj) 50 Mg Pfpen Unknown Dose SQ Q7D PEN Amlodipine (Amlodipine) 2.5 Mg Tab Unknown Dose PO DAILY Blood Pressure Management Ref 0 TAB Atenolol (Atenolol) 50 Mg Tab 50 MG PO BID Blood Pressure Management Ref 0 TAB Enalapril (Enalapril) 20 Mg Tab 20 MG PO DAILY Ref 0 TAB Metformin (Metformin) 500 Mg Tab 500 MG PO DAILY With a meal Blood Sugar Management Ref 0 TAB Promethazine-Codeine Liq (Promethazine-Codeine Liq) 6.25-10 Mg/5 Ml Syrp 5 ML PO Q6H PRN COUGH AND/OR COLD SYMPTOMS Ref 0 ML Discontinued Medications: Cefdinir (Cefdinir) 300 Mg Cap 300 MG PO Q12HR Infection Ref 0 CAP Doxycycline Hyclate (Doxycycline Hyclate) 100 Mg Cap 100 MG PO BID Infection Ref 0 CAP Methylprednisolone Dosepak (Methylprednisolone Dosepak) 4 Dspk 4 MG PO DIRECTED Per Pharmacist Direction Inflammation Ref 0 DSPK Vivian Wade MD Dec 30, 2016 10:24
--- NOTE | 2016-12-30 10:26 | PD.ONC.PN ---
Subjective Subjective Remarks Afebrile overnight. Patient eager to go home. Seen by GI who recommend outpatient follow up. Tolerating Lovenox injections. Objective Data Date Time Temp Pulse Resp B/P Pulse Ox O2 Delivery O2 Flow Rate FiO2 12/30/16 08:00 97.8 90 18 116/57 96 12/30/16 04:00 97.6 88 18 128/60 93 12/30/16 00:00 97.5 82 18 111/53 93 12/29/16 20:00 98.0 94 18 102/54 96 12/29/16 20:00 99 12/29/16 20:00 Room Air 12/29/16 16:00 98.0 91 20 101/52 93 12/29/16 12:00 98.4 71 18 103/66 94 12/29/16 11:20 98 12/30/16 12/30/16 12/30/16 07:00 15:00 23:00 Output Total 0 ml Balance 0 ml Result Diagram: 12/30/16 0640 12/27/16 0457 Laboratory Results Laboratory Tests Test 12/30/16 06:40 White Blood Count 10.7 TH/MM3 Red Blood Count 3.88 MIL/MM3 Hemoglobin 11.2 GM/DL Hematocrit 34.9 % Mean Corpuscular Volume 89.9 FL Mean Corpuscular Hemoglobin 28.9 PG Mean Corpuscular Hemoglobin 32.2 % Concent Red Cell Distribution Width 13.8 % Platelet Count 194 TH/MM3 Mean Platelet Volume 9.0 FL Culture Results Microbiology Date/Time Procedure Status Source Growth 12/28/16 12:10 Stool Occult Blood (DANNIE) - Final Complete Stool Stool HEMOCCULT POSITIVE Administered Medications Medications (Trade) Dose Ordered Sig/Vern Route PRN Reason Start Time Stop Time Status Last Admin Dose Admin Sodium Chloride (NS Flush) 2 ml UNSCH PRN IVF FLUSH AFTER USING IV ACCESS 12/24/16 13:15 12/27/16 20:38 Chlorhexidine Gluconate (Chlorhexidine 2% Cloth) Taper DAILY@04 TOP 12/25/16 04:00 12/21/17 03:59 12/27/16 04:00 Insulin Human Regular (NovoLIN R SUPPLEMENTAL SCALE) 1 Q4HR SQ 12/24/16 17:30 12/29/16 20:58 Hydralazine HCl (Apresoline Inj) 10 mg Q6H PRN IV PUSH SYS BP GREATER THAN 160 MMHG 12/25/16 08:15 12/26/16 18:32 Metoprolol Tartrate (Lopressor) 50 mg Q12HR PO 12/26/16 09:00 12/30/16 08:55 Enalapril Maleate (Vasotec) 20 mg DAILY PO 12/27/16 10:30 12/30/16 08:55 Pantoprazole Sodium (Protonix) 40 mg DAILY PO 12/28/16 09:00 12/30/16 08:55 Enoxaparin Sodium (Lovenox Inj) 150 mg Q12H SQ 12/29/16 10:00 12/30/16 09:01 Warfarin Sodium (Coumadin) 5 mg DAILY@1600 PO 12/29/16 16:00 12/29/16 17:21 Objective Remarks GENERAL: Obese female, upright in chair next to bed in nad. SKIN: Warm and dry. central line, right neck without bleeding. HEAD: Normocephalic. EYES: No injection or drainage. NECK: Supple, trachea midline. CARDIOVASCULAR: Regular rate and rhythm RESPIRATORY: Breath sounds equal bilaterally. No accessory muscle use. GASTROINTESTINAL: Abdomen soft, non-tender, nondistended. EXTREMITIES: No cyanosis NEUROLOGICAL: awake and alert, normal speech. able to move extremities. Assessment/Plan Problem List: (1) Pulmonary embolus Status: Acute Plan: 12/30: continue Lovenox bridge to coumadin U/S LE +DVT left distal femoral vein CTA: ++extensive pulmonary embolus and a saddle embolus with embolic material seen in both mean right and left pulmonary arteries. s/p TPA Assessment 56y/o female with saddle embolus pulmonary embolism. h/o hypertension, diabetes, hyperlipidemia, morbid obesity. Plan 1. continue Lovenox bridge to coumadin 2. clear for discharge 3. follow up in clinic with ADRIANA Alonso later this week--fs faxed to npr and patient given card Attending Statement Agree with above, fu out pt clinic for pt/inr check this week. Problem Qualifiers (1) Pulmonary embolus: Qualified Code: I26.92 - Acute saddle pulmonary embolism without acute cor pulmonale Adriana Jimenez Dec 30, 2016 10:26 Debora Guajardo MD Dec 30, 2016 19:38
[2016-12-30 12:00] VITALS: BP 107/58; PULSE 71; RESP 18; TEMP 98.7; O2SAT 97
[2016-12-30 12:51] LABS: PROTHROMBIN TIME - PATIENT 11.1 SEC (9.8-11.6)
== END 2016-12-30 13:59 | disposition home health service (06) | DRG 176 ==
LOC: NEPE 13:00 → NEDA 16:35 → HIMN 17:55 → N04B 12-27 13:41
PROVIDERS: ADMIT Internal Medicine; ATTEND Internal Medicine
PROC: 05HN33Z Insertion of Infusion Device into Left Internal Jugular Vein, Percutaneous Approach (ICD-10-PCS; principal; 2016-12-24)
PROC: 3E03317 Introduction of Other Thrombolytic into Peripheral Vein, Percutaneous Approach (ICD-10-PCS; 2016-12-24)
DX: I26.92 Saddle embolus of pulmonary artery without acute cor pulmonale (principal); I27.2 Other secondary pulmonary hypertension; Z68.43 Body mass index [BMI] 50.0-59.9, adult; E11.65 Type 2 diabetes mellitus with hyperglycemia; E66.01 Morbid (severe) obesity due to excess calories; I82.412 Acute embolism and thrombosis of left femoral vein; I10 Essential (primary) hypertension; E78.5 Hyperlipidemia, unspecified; D64.9 Anemia, unspecified; I87.2 Venous insufficiency (chronic) (peripheral); M19.90 Unspecified osteoarthritis, unspecified site; R09.02 Hypoxemia; R00.0 Tachycardia, unspecified; Z79.84 Long term (current) use of oral hypoglycemic drugs
CPT/HCPCS: 36556; 37212; 71010; 71275; 76937; 77001; 80048; 80053; 81001; 81241; 82272; 82550; 82948; 83090; 83735; 83880; 84100; 84484; 85025; 85027; 85240; 85300; 85303; 85306; 85384; 85598; 85610; 85613; 85730; 86147; 87641; 93005; 93306; 93970; 94620; 94640; 94664; 96374; C9113; J0360; J1644; J1650; J2930; J2997; J7030; J7040; Q9967

== ENCOUNTER 2017-01-05 21:12 | Emergency (ER) | payer OTHER ==
[~2017-01-05] VITALS: Ht 172.7 cm; Wt 161.0 kg
[~2017-01-05 21:12] MED LIST changes: +ALBI1INJ2 SQ; +AMLO2.5T PO; -ATEN25; +ATEN50TA PO; +COUM5TAB PO; +ENAL20TA PO; +ENOX150P SQ; -LASI20TA PO; +METF500T PO; -PRED20 PO; +PROM6.256 PO; -VASO10TA8 PO; +WALKER WHEELS/F1 MIS
[2017-01-05 21:14] VITALS: BP 146/67; PULSE 82; RESP 18; TEMP 98.3; O2SAT 96
--- NOTE | 2017-01-05 21:32 | PD ---
HPI Chief Complaint: Edema Time Seen by Provider: 21:32 Travel History International Travel<30 days: No Contact w/Intl Traveler<30days: No Traveled to known affect area: No History of Present Illness HPI 56-year-old female presents versus current for evaluation of lower extremity edema. Patient was discharged last week following an admission for saddle pulmonary emboli. Patient was started on Coumadin and she is giving herself Lovenox. She states she is still subtherapeutic as her INR was 1.9 this morning. She is concerned because she has noticed swelling in her left lower extremity worsening over the last few days. He also has noted a 3 pound weight gain and had some shortness of breath yesterday afternoon episode of vomiting. She is not currently short of breath. She contacted her primary care provider who advised that she came to the emergency department because she was unable to see her in the office today. Patient denies any significant or acute pain. She states that her left knee is always painful and she has seen an orthopedic surgeon recently for this. She denies any chest pain or tightness. She denies any fevers or chills. She has no other symptoms to report. PFSH Past Medical History Asthma: Yes Heart Rhythm Problems: No Cancer: No Cardiovascular Problems: Yes High Cholesterol: Yes Chemotherapy: No Chest Pain: Yes Congestive Heart Failure: No COPD: No Cerebrovascular Accident: No Diabetes: Yes Diminished Hearing: No Endocrine: Yes Gastrointestinal Disorders: Yes (CHOLY ) GERD: No Genitourinary: No Hiatal Hernia: No Hypertension: Yes Implanted Vascular Access Dvce: Yes Kidney Stones: No Neurologic: Yes (CARPAL TUNNEL ) Psychiatric: No Reproductive: No Respiratory: Yes (PNA/BRONCHITIS) Migraines: No Radiation Therapy: No Renal Failure: No Seizures: No Sickle Cell Disease: No Sleep Apnea: No Thyroid Disease: No Ulcer: No : 1 Para: 1 Past Surgical History Abdominal Surgery: No Body Medical Devices: PLATE/ SCREWS IN RIGHT ANKLE Cardiac Surgery: No Section: Yes (95) Cholecystectomy: Yes (87) Ear Surgery: No Endocrine Surgery: No Eye Surgery: No Genitourinary Surgery: No Gynecologic Surgery: Yes (csection) Oral Surgery: No Thoracic Surgery: No Tonsillectomy: Yes ( A CHILD) Other Surgery: Yes (TONSILLECTOMY, , PLATE/SCREWS IN RIGHT ANKLE, CHOLECYSTECTOMY ) Social History Alcohol Use: No Tobacco Use: No Substance Use: No Allergies-Medications (Allergen,Severity, Reaction): Coded Allergies: Sulfa (Verified Allergy, Severe, HIVES, 01/05/17) Reported Meds & Prescriptions Reported Meds & Active Scripts Active Coumadin (Warfarin) 5 Mg Tab 5 Mg PO DAILY@1600 30 Days Lovenox Inj (Enoxaparin Sodium) 150 Mg/Ml Syr 150 Mg SQ Q12H 4 Days Walker with Front Wheels (Device) 1 Mis Mis 1 Ea .ROUTE DIRECTED Reported Atorvastatin (Atorvastatin Calcium) 20 Mg Tab 20 Mg PO HS Enalapril (Enalapril Maleate) 20 Mg Tab 20 Mg PO DAILY Furosemide 20 Mg Tab 20 Mg PO DAILY Tanzeum 4-Pack Inj (Albiglutide) 50 Mg Pfpen Unknown Dose SQ Q7D Amlodipine (Amlodipine Besylate) 2.5 Mg Tab Unknown Dose PO DAILY Enalapril (Enalapril Maleate) 20 Mg Tab 20 Mg PO DAILY Atenolol 50 Mg Tab 50 Mg PO BID Metformin (Metformin HCl) 500 Mg Tab 500 Mg PO DAILY With a meal Review of Systems Except as stated in HPI: all other systems reviewed are Neg Physical Exam Narrative GENERAL: Obese female patient, in no acute distress SKIN: Focused skin assessment warm/dry. Bilateral distal lower extremities are mildly erythematous. It is blanchable. There is 2+ bilateral lower extremity edema however the left appears moderately larger than the right. No weeping. HEAD: Atraumatic. Normocephalic. EYES: Pupils equal and round. No scleral icterus. No injection or drainage. ENT: No nasal bleeding or discharge. Mucous membranes pink and moist. NECK: Trachea midline. No JVD. CARDIOVASCULAR: Regular rate and rhythm. No murmur appreciated. RESPIRATORY: No accessory muscle use. Clear to auscultation. Breath sounds equal bilaterally. GASTROINTESTINAL: Abdomen soft, non-tender, nondistended. Hepatic and splenic margins not palpable. MUSCULOSKELETAL: No obvious deformities. No clubbing. No cyanosis. NEUROLOGICAL: Awake and alert. No obvious cranial nerve deficits. Motor grossly within normal limits. Normal speech. PSYCHIATRIC: Appropriate mood and affect; insight and judgment normal. Data Data Last Documented VS Vital Signs Date Time Temp Pulse Resp B/P Pulse Ox O2 Delivery O2 Flow Rate FiO2 01/05/17 23:41 139/65 01/05/17 23:33 96 Room Air 01/05/17 21:14 98.3 82 18 Orders Complete Blood Count With Diff (01/05/17 21:31) Basic Metabolic Panel (Bmp) (01/05/17 21:31) B-Type Natriuretic Peptide (01/05/17 21:31) Act Partial Throm Time (Ptt) (01/05/17 21:31) Prothrombin Time / Inr (Pt) (01/05/17 21:31) Ckmb (Isoenzyme) Profile (01/05/17 21:31) Troponin I (01/05/17 21:31) Urinalysis - C+S If Indicated (01/05/17 21:31) Iv Access Insert/Monitor (01/05/17 21:31) Electrocardiogram (01/05/17 21:31) Ecg Monitoring (01/05/17 21:31) Oximetry (01/05/17 21:31) Oxygen Administration (01/05/17 21:31) Chest, Single Ap (01/05/17 21:31) Us Leg Venous Doppler (01/05/17 21:31) Sodium Chloride 0.9% Flush (Ns Flush) (01/05/17 21:45) Morphine Inj (Morphine Inj) (01/05/17 21:45) Ondansetron Inj (Zofran Inj) (01/05/17 21:45) Labs Laboratory Tests Test 01/05/17 01/05/17 21:45 22:20 Prothrombin Time 24.0 SEC Prothromb Time International 2.1 RATIO Ratio Activated Partial 42.7 SEC Thromboplast Time Sodium Level 137 MEQ/L Potassium Level 4.7 MEQ/L Chloride Level 101 MEQ/L Carbon Dioxide Level 26.1 MEQ/L Anion Gap 10 MEQ/L Blood Urea Nitrogen 11 MG/DL Creatinine 0.97 MG/DL Estimat Glomerular Filtration 59 ML/MIN Rate Random Glucose 229 MG/DL Calcium Level 9.1 MG/DL Total Creatine Kinase 63 U/L Troponin I LESS THAN 0.02 NG/ML B-Type Natriuretic Peptide 138 PG/ML White Blood Count 11.4 TH/MM3 Red Blood Count 4.15 MIL/MM3 Hemoglobin 12.3 GM/DL Hematocrit 36.8 % Mean Corpuscular Volume 88.8 FL Mean Corpuscular Hemoglobin 29.6 PG Mean Corpuscular Hemoglobin 33.4 % Concent Red Cell Distribution Width 14.0 % Platelet Count 309 TH/MM3 Mean Platelet Volume 9.2 FL Neutrophils (%) (Auto) 84.7 % Lymphocytes (%) (Auto) 12.3 % Monocytes (%) (Auto) 2.2 % Eosinophils (%) (Auto) 0.2 % Basophils (%) (Auto) 0.6 % Neutrophils # (Auto) 9.6 TH/MM3 Lymphocytes # (Auto) 1.4 TH/MM3 Monocytes # (Auto) 0.3 TH/MM3 Eosinophils # (Auto) 0.0 TH/MM3 Basophils # (Auto) 0.1 TH/MM3 CBC Comment DIFF FINAL Differential Comment MDM Medical Decision Making Medical Screen Exam Complete: Yes Emergency Medical Condition: Yes Medical Record Reviewed: Yes Differential Diagnosis Lower extremity edema versus DVT versus cellulitis versus CHF versus electrolyte abnormality versus renal impairment Narrative Course 56-year-old female presents to emergency department for evaluation. Patient appears without distress. She does have bilateral lower extremity edema however the left does appear larger than the right. Ultrasound is ordered is not convincing for DVT. Chest x-ray is clear. CBC and BMP are without acute concern. Troponin is less than 0.02. BNP is 138. INR is 2.1. I discussed the patient with my attending physician who agrees the patient can be discharged at this time. I have reviewed the findings with the patient and her daughter at bedside. She states she has an appointment Thursday morning, and 2 days with her primary care provider. She is encouraged to follow-up at that time. They agree to return immediately with any acute worsening of symptoms. Diagnosis Primary Impression: Lower extremity edema Additional Impression: History of pulmonary embolism Referrals: Primary Care Physician Patient Instructions: General Instructions, Leg Edema (ED) Additional Instructions: Elevate lower extremities to reduce pain and swelling Follow-up with your primary care provider Continue all medication as prescribed Avoid salt in your diet Return immediately with any acute worsening symptoms Med/Other Pt SpecificInfo: No Change to Meds Disposition: 01 DISCHARGE HOME Condition: Stable GerberShiloAbiolacarly WRIGHT Jan 05, 2017 21:32
[2017-01-05] MEDS ORDERED: SODIUM CHLORIDE 0.9% FLUSH 10 ML FLUSH IVF PRN (21:45)
[2017-01-05] MEDS ORDERED: MORPHINE SULFATE 4 MG/ML INJ IV PUSH ONE (21:45)
[2017-01-05] MEDS ORDERED: ONDANSETRON HCL 4 MG/2 ML VIAL IV PUSH ONE (21:45)
--- NOTE | 2017-01-05 22:02 | RADRPT ---
EXAM DATE/TIME: 01/05/2017 21:44 [facility] COMPARISON: CHEST SINGLE AP, December 24, 2016, 13:15. INDICATIONS : Short of breath. Swelling in legs. Recent saddle pulmonary embolism. MEDICAL HISTORY : Hypertension. Asthma. Saddle pulmonary embolism. SURGICAL HISTORY : Cholecystectomy. Tonsillectomy. Right ankle repair. ENCOUNTER: Initial ACUITY: 2 days PAIN SCORE: 0/10 LOCATION: Bilateral chest FINDINGS: A single view of the chest demonstrates the lungs to be symmetrically aerated without evidence of mas s, infiltrate or effusion. The cardiomediastinal contours are unremarkable. Osseous structures are intact. CONCLUSION: The lungs are clear. Naveen Raygoza MD on January 05, 2017 at 22:00 Board Certified Radiologist. This report was verified electronically.
--- NOTE | 2017-01-05 22:21 | RADRPT ---
EXAM DATE/TIME: 01/05/2017 21:43 [facility] COMPARISON: No previous studies available for comparison. INDICATIONS : Left leg swelling. MEDICAL HISTORY : Hypercholesterolemia. Hypertension. Asthma. Dyspnea. Diabetes. Endocrine disorder. SURGICAL HISTORY : Tonsillectomy. section. Cholecystectomy. Right ankle repair. ENCOUNTER: Initial ACUITY: 1 week PAIN SCORE: 10/10 LOCATION: Left leg. TECHNIQUE: Venous ultrasound of the leg was performed from the inguinal ligament to the proximal calf. Real-keira e, color Doppler and spectral tracing, compression and augmentation techniques were used. FINDINGS: There is normal compressibility of the deep venous system from the inguinal region to the popliteal r egion. No echogenic clot is seen in the lumen of the common femoral, femoral, popliteal, and posteri or tibial veins. There is a blunted response of the venous system to proximal and distal augmentatio n and respiration. CONCLUSION: No convincing evidence of deep venous thrombosis. Naveen Raygoza MD on January 05, 2017 at 22:17 Board Certified Radiologist. This report was verified electronically.
[2017-01-05 22:44] LABS: AUTOMATED NEUTROPHIL # 9.6 TH/MM3 (1.8-7.7); BASOPHIL # 0.1 TH/MM3 (0-0.2); BASOPHIL % 0.6 % (0.0-2.0); EOSINOPHIL % 0.2 % (0.0-4.0); HEMATOCRIT 36.8 % (35.0-46.0); HEMO FLAGS DIFF FINAL; LYMPH % 12.3 % (9.0-44.0); LYMPHOCYTE # 1.4 TH/MM3 (1.0-4.8); MEAN CELL VOLUME 88.8 FL (80.0-100.0); MEAN CORPUSCULAR HEMOGLOBIN 29.6 PG (27.0-34.0); MEAN CORPUSCULAR HGB CONC 33.4 % (32.0-36.0); MONO % 2.2 % (0.0-8.0); NEUT % 84.7 % (16.0-70.0); PLATELET COUNT 309 TH/MM3 (150-450); RED BLOOD COUNT 4.15 MIL/MM3 (4.00-5.30); WHITE BLOOD COUNT 11.4 TH/MM3 (4.0-11.0)
[2017-01-05 22:47] LABS: APTT (PATIENT) 42.7 SEC (24.3-30.1); INTERNATIONAL NORMALIZED RATIO 2.1 RATIO
[2017-01-05 22:59] LABS: ANION GAP 10 MEQ/L (5-15); BICARBONATE 26.1 MEQ/L (21.0-32.0); BLOOD UREA NITROGEN 11 MG/DL (7-18); CHLORIDE 101 MEQ/L (98-107); GLOMERULAR FILTRATION RATE 59 ML/MIN (>89); POTASSIUM 4.7 MEQ/L (3.5-5.1); SODIUM (NA) 137 MEQ/L (136-145)
[2017-01-05 23:00] LABS: CREATINE KINASE 63 U/L (26-192)
[2017-01-05] MEDS ORDERED: ENAL20TA PO (23:01)
[2017-01-05] MEDS ORDERED: FURO20TA PO (23:01)
[2017-01-05] MEDS ORDERED: ATOR20TA15 PO (23:01)
[2017-01-05 23:41] VITALS: BP 139/65
--- NOTE | 2017-01-06 13:14 | EKG ---
Date Performed: 01/05/2017 Time Performed: 22:46:39 PTAGE: 56 years EKG: Sinus rhythm NORMAL ECG PREVIOUS TRACING : 12/24/2016 13.32 Compared to prior tracing no significant change DOCTOR: Savage Meléndez Interpretating Date/Time 01/06/2017 13:11:45
== END 2017-01-05 23:47 | disposition home or self-care (01) ==
LOC: NEPD 21:12
DX: R60.0 Localized edema (principal); I10 Essential (primary) hypertension; Z86.711 Personal history of pulmonary embolism
CPT/HCPCS: 71010; 80048; 82550; 83880; 84484; 85025; 85610; 85730; 93005; 93971

== ENCOUNTER → 2017-06-04 | Day surgery (SDC) | payer OTHER ==
[~2017-06-04] MED LIST changes: +ACETAMINOPHEN/HYDROcodone 325 MG/5 MG TAB ONE; +ATOR20TA15 PO; +BUPIVACAINE/EPINEPHRINE 0.5% PF 30 ML VIAL ONE; +FURO20TA PO; +KETOROLAC TROMETHAMINE 30 MG/ML (IVP) VIAL IV PUSH ONE; +LACTATED RINGER'S 1000 ML INJ 1,000 ML ONE; +MEPERIDINE HCL 25 MG/ML VIAL ONE; +MIDAZOLAM HCL 2 MG/2 ML VIAL ONE; +ONDANSETRON HCL 4 MG/2 ML VIAL IV PUSH ONE; -PROM6.256 PO; +PROPOFOL 200 MG/20 ML AMP IV ONE; +ceFAZolin INJ 1,000 MG VIAL ONE
--- NOTE | 2017-06-04 12:52 | MP ---
cc: SAMMY REN M.D. DATE OF SURGERY 06/04/2017 PREOPERATIVE DIAGNOSIS Left knee complex medial meniscus tear. POSTOPERATIVE DIAGNOSIS Left knee complex medial meniscus tear. PROCEDURE Left knee arthroscopic partial medial meniscectomy. ANESTHESIA General SURGEON Sammy Ren MD [employer]CIAL [employer]LECTOR SURGEON ADRIANA Damon ESTIMATED BLOOD LOSS Minimal DRAINS None SPECIMEN None COMPLICATIONS None known INDICATION Esha Lowery is a morbidly obese female with a history of debilitating knee pain and has had an MRI which shows a complex tear of the body of the medial meniscus. She has had to be on blood thinners for other medical reasons and surgery had to be delayed, but now she has been given clearance to proceed with arthroscopic surgery. The risk and benefits have thoroughly been discussed and a detailed informed consent has been obtained. The nurse first assist Claude Hansen is an advanced registered nurse practitioner and his skill set was medically necessary to assist with limb positioning, holding the arthroscope and allowing me to use both hands to perform this operation. His skill set was medically necessary for the performance of the operation. PROCEDURE The patient is brought into the operating room. She was placed under general anesthetic. The left lower extremity was prepped and draped in the usual sterile fashion. IV antibiotics were given, a time out is completed. We injected Marcaine about inferolateral portal and then we made our portal. A blunt trocar was used to introduce the cannula. The patellofemoral joint showed some mild chondromalacia. The notch showed a normal-appearing ACL. The lateral compartment showed some minimal edge fraying, but no major tear in the meniscus and the articular surfaces looked good. The medial compartment showed some mild fraying centrally located on the weightbearing portion of the medial femoral condyle and a complex tear involving 75% of the depth of the meniscus at the junction of the posterior body and posterior horn of the medial meniscus. We proceeded with arthroscopic partial medial meniscectomy using a combination of basket forceps and arthroscopic shaver. We switched over a switching stick to gain the angle to smooth the anterior horn to the midbody. We also smoothed the medial femoral condyle where indicated with the shaver at 90 degrees to the surface of the condyle. Follow-up photograph is showing that partial meniscectomy was performed. We then switched back to the lateral portal and did a repeat diagnostic arthroscopy confirming no loose bodies. The arthroscopic equipment was removed. Marcaine had been injected. Steri-Strips applied. Sterile dressing applied. An Deni wrap was applied from the foot to the thigh. The patient was awoken and returned to the recovery room in stable condition. MD YURI Potts/JB /12:23 PM /12:41 PM
== END | disposition home or self-care (01) ==
LOC: ESDC 07:39
PROVIDERS: ATTEND Orthopaedic Surgery Sports Medicine
DX: S83.232A Complex tear of medial meniscus, current injury, left knee, initial encounter (principal); E11.9 Type 2 diabetes mellitus without complications; Z79.84 Long term (current) use of oral hypoglycemic drugs; Z79.01 Long term (current) use of anticoagulants
CPT/HCPCS: 01400; 29881; 82948; J0690; J1885; J2175; J2250; J2405; J3010; J7120

== ENCOUNTER 2018-05-23 21:32 | Observation (INO) ==
--- NOTE | 2018-05-23 22:09 | ED ---
HPI General Chief complaint: Shortness of Breath/Dyspnea Stated complaint: trouble breathing Time Seen by Provider: 05/23/18 21:58 History of Present Illness HPI narrative: 57-year-old female with history of pulmonary embolism in December 2016, taken off anticoagulation in July of this year, presents for evaluation of acute dyspnea which started 2 hours prior to arrival. She reports that she just returned from a long flight to [place] this morning. Her riprap man Dr. Guajardo did give her Lovenox to take each day that she flew and so she used an 80 mg injection of Lovenox yesterday. This evening she developed dyspnea. Symptoms are moderate, aggravated by exertion. She also reports a mild cough and nasal congestion which started yesterday. Denies chest pain, fevers, chills, abdominal pain, nausea or vomiting, lower extremity edema. No other complaints at this time. Related Data Home Medications Medication Instructions Recorded Confirmed Aspir-81 81 mg PO DAILY 05/24/18 05/24/18 Tradjenta 5 mg PO DAILY 05/24/18 05/24/18 amlodipine 5 mg PO DAILY 05/24/18 05/24/18 atorvastatin 20 mg PO DAILY 05/24/18 05/24/18 enalapril maleate 20 mg PO DAILY 05/24/18 05/24/18 metformin 500 mg PO DAILY 05/24/18 05/24/18 metoprolol tartrate 50 mg PO DAILY 05/24/18 05/24/18 Allergies Allergy/AdvReac Type Severity Reaction Status Date / Time Sulfa (Sulfonamide Allergy Severe HIVES Verified 05/24/18 12:55 Antibiotics) Review of Systems ROS: all other systems reviewed are negative [facility] Medical History Medical History Diabetes (Acute) Hypertension (Acute) Pulmonary embolism (Acute) Surgical History Surgical History History of ankle surgery (Acute) History of cholecystectomy (Acute) History of knee surgery (Acute) History of tonsillectomy (Acute) Social History Social History Substance History: No History of Abuse Second Hand Smoke Exposure: No Smoking Status: Never smoker How Often Do You Have a Drink Containing Alcohol: Monthly or less Recent Travel in [facility] within the Last 8 Weeks: No Recent Out of Country Travel within the Last 8 Weeks: No Immunization History Tetanus Immunization: Unsure Exam Narrative Exam Narrative: GENERAL: This is a well-developed well-nourished female who appears tachypneic and anxious on initial examination. Heart rate is approximately 100. SKIN: Warm and dry. HEAD: Atraumatic. Normocephalic. EYES: Pupils equal and round. No scleral icterus. No injection or drainage. ENT: No nasal bleeding or discharge. Mucous membranes pink and moist. NECK: Trachea midline. No JVD. CARDIOVASCULAR: Regular rate and rhythm. No murmur appreciated. RESPIRATORY: No accessory muscle use. Clear to auscultation. Breath sounds equal bilaterally. GASTROINTESTINAL: Abdomen soft, non-tender, nondistended. Hepatic and splenic margins not palpable. MUSCULOSKELETAL: No obvious deformities. No clubbing. No cyanosis. Trace tibial edema bilaterally. NEUROLOGICAL: Awake and alert. No obvious cranial nerve deficits. Motor grossly within normal limits. Normal speech. Course Initial Documented Vital Signs Temperature 99.1 F 05/23/18 21:50 Pulse Rate 99 H 05/23/18 21:50 Respiratory Rate 24 05/23/18 21:50 Blood Pressure 170/74 H 05/23/18 21:50 Pulse Oximetry 96 05/23/18 21:50 Last Documented Vital Signs Temperature 99.9 F H 05/26/18 04:00 Pulse Rate 88 05/26/18 04:00 Respiratory Rate 16 05/26/18 04:00 Blood Pressure 134/60 05/26/18 04:00 Pulse Oximetry 99 05/26/18 04:00 Medical Decision Making MAC Attestation MAC supervised visit: Yes Attestation: I, Dr. Gayle, have reviewed the advance practice practitioner's documentation and am in agreement, met with the patient face to face, made the diagnosis, and the medical decision making was done by me. The patient was initially evaluated by Summer Wilkins. Please see their complete history and physical. *My assessment and Findings: The patient presents with a history of shortness of breath after recent travel by flight. The patient has a past medical history of pulmonary embolism. During the course of the patient's emergency department visit, the patient's history, examination, and differential diagnosis were reviewed with the patient. The patient was placed on a cardiac catheterization technologist with oximetry and frequent blood pressure monitoring. The patient had IV access obtained and blood work sent for analysis. The patient's diagnostic studies were reviewed and remarkable for a white count of 14.6, hemoglobin 13.1, platelets are 281, diff shows 79.8 neutrophils, PT 9.7 , INR 1.0, PTT 28.2, chemistry is remarkable for glucose of 122, GFR of 65, alk phos 130, CPK 70, troponin I less than 0.02. The patient's chest x-ray revealed mild pulmonary vascular congestion is read by the reading radiologist with mild cardiac silhouette enlargement. A BNP was added to the patient's workup. The patient's BNP is 263. The patient CTA to rule out PE shows no evidence of PE, however coronary artery calcifications are noted and a mild patchy right lower lung opacity. The patient was started on Rocephin and Zithromax 500 IV. The patient will be admitted for pneumonia. The patient's case including history, pertinent physical examination findings, and laboratory studies were discussed with Dr. Jovel. It was agreed that the patient would be admitted to the hospitalist service. The patient's results were discussed with the patient, including the plan of care. I explained that further testing and/ or monitoring is indicated based on the patient's history, examination, and/ or laboratory findings. Therefore, I recommended admission for additional evaluation. The patient expressed understanding and was agreeable with this plan. The patient was admitted to the hospital in guarded condition and sent to a bed under the care of the [facility] service. MDM Narrative Medical decision making narrative: The patient was placed on ECG monitoring pulse oximetry. Twelve-lead EKG ordered. Lab work, chest x-ray, CT pulmonary angiogram ordered. Given the acute onset of her symptoms, concerning history, tachypnea and tachycardia, i-STAT has been ordered in order to help expedite CT imaging. 2300: At the end of my shift the patient was signed out pending lab work and imaging studies. Medical Screen Exam Complete: Yes Emergency Medical Condition: Yes Differential Diagnosis Differential Diagnosis: Anxiety, pneumonia, bronchitis, spontaneous pneumothorax Lab Data Result diagrams: 05/25/18 08:30 05/25/18 08:48 Lab Results 05/23/18 05/23/18 05/23/18 Range/Units 22:43 22:43 22:43 WBC 14.6 H (4.0-11.0) th/mm3 RBC 4.28 (4.00-5.30) mil/mm3 Hgb 13.1 (11.6-15.3) gm/dL POC Hgb (Calc) (11.6-15.3) g/dL Hct 39.2 (35.0-46.0) % POC Hct (35-46.0) % MCV 91.5 (80.0-100.0) fL MCH 30.6 (27.0-34.0) pg MCHC 33.4 (32.0-36.0) % RDW 13.6 (11.6-17.2) % Plt Count 281 (150-450) th/mm3 MPV 8.5 (7.0-11.0) fL Neut % (Auto) 79.8 H (16.0-70.0) % Lymph % (Auto) 9.7 (9.0-44.0) % Banks % (Auto) 6.2 (0.0-8.0) % Eos % (Auto) 3.7 (0.0-4.0) % Baso % (Auto) 0.6 (0.0-2.0) % Neut # (Auto) 11.7 H (1.8-7.7) th/mm3 Lymph # (Auto) 1.4 (1.0-4.8) th/mm3 Banks # (Auto) 0.9 (0.0-0.9) th/mm3 Eos # (Auto) 0.5 H (0.0-0.4) th/mm3 Baso # (Auto) 0.1 (0.0-0.2) th/mm3 WBC Differential . Differential Comment Auto diff final PT 9.7 L (9.8-11.6) sec INR 1.0 Ratio APTT 28.2 (23.4-31.7) sec POC Sodium (137-144) mmol/L Sodium 141 (136-145) meq/L POC Potassium (3.6-5.0) mmol/L Potassium 4.2 (3.5-5.1) meq/L POC Chloride (102-111) mmol/L Chloride 107 (98-107) meq/L Carbon Dioxide 29.9 (21.0-32.0) meq/L Anion Gap 4 L (5-15) meq/L POC BUN (5-21) mg/dL BUN 12 (7-18) mg/dL Creatinine 0.89 (0.50-1.00) mg/dL POC Creatinine (0.6-1.3) mg/dL Estimated GFR 65 L (>89) mL/min POC Glucose (68-110) mg/dL Random Glucose 122 H (74-106) mg/dL Calcium 8.6 (8.5-10.1) mg/dL Magnesium 1.9 (1.5-2.5) mg/dL Total Bilirubin 0.2 (0.2-1.0) mg/dL AST 21 (15-37) U/L ALT 29 (10-53) U/L Alkaline Phosphatase 130 H (45-117) U/L Total Creatine Kinase 70 (26-192) U/L Troponin I Less than 0.02 L (0.02-0.05) ng/mL B-Natriuretic Peptide (0-100) pg/mL Total Protein 7.3 (6.4-8.2) g/dL Albumin 3.4 (3.4-5.0) g/dL 05/23/18 05/23/18 05/24/18 Range/Units 22:43 22:43 09:07 WBC (4.0-11.0) th/mm3 RBC (4.00-5.30) mil/mm3 Hgb (11.6-15.3) gm/dL POC Hgb (Calc) 13.3 (11.6-15.3) g/dL Hct (35.0-46.0) % POC Hct 39.0 (35-46.0) % MCV (80.0-100.0) fL MCH (27.0-34.0) pg MCHC (32.0-36.0) % RDW (11.6-17.2) % Plt Count (150-450) th/mm3 MPV (7.0-11.0) fL Neut % (Auto) (16.0-70.0) % Lymph % (Auto) (9.0-44.0) % Banks % (Auto) (0.0-8.0) % Eos % (Auto) (0.0-4.0) % Baso % (Auto) (0.0-2.0) % Neut # (Auto) (1.8-7.7) th/mm3 Lymph # (Auto) (1.0-4.8) th/mm3 Banks # (Auto) (0.0-0.9) th/mm3 Eos # (Auto) (0.0-0.4) th/mm3 Baso # (Auto) (0.0-0.2) th/mm3 WBC Differential Differential Comment PT (9.8-11.6) sec INR Ratio APTT (23.4-31.7) sec POC Sodium 141 (137-144) mmol/L Sodium (136-145) meq/L POC Potassium 4.2 (3.6-5.0) mmol/L Potassium (3.5-5.1) meq/L POC Chloride 103 (102-111) mmol/L Chloride (98-107) meq/L Carbon Dioxide (21.0-32.0) meq/L Anion Gap (5-15) meq/L POC BUN 12 (5-21) mg/dL BUN (7-18) mg/dL Creatinine (0.50-1.00) mg/dL POC Creatinine 0.8 (0.6-1.3) mg/dL Estimated GFR (>89) mL/min POC Glucose 122 H 117 H (68-110) mg/dL Random Glucose (74-106) mg/dL Calcium (8.5-10.1) mg/dL Magnesium (1.5-2.5) mg/dL Total Bilirubin (0.2-1.0) mg/dL AST (15-37) U/L ALT (10-53) U/L Alkaline Phosphatase (45-117) U/L Total Creatine Kinase (26-192) U/L Troponin I (0.02-0.05) ng/mL B-Natriuretic Peptide 263 H (0-100) pg/mL Total Protein (6.4-8.2) g/dL Albumin (3.4-5.0) g/dL 05/24/18 05/24/18 05/24/18 Range/Units 12:50 17:06 21:49 WBC (4.0-11.0) th/mm3 RBC (4.00-5.30) mil/mm3 Hgb (11.6-15.3) gm/dL POC Hgb (Calc) (11.6-15.3) g/dL Hct (35.0-46.0) % POC Hct (35-46.0) % MCV (80.0-100.0) fL MCH (27.0-34.0) pg MCHC (32.0-36.0) % RDW (11.6-17.2) % Plt Count (150-450) th/mm3 MPV (7.0-11.0) fL Neut % (Auto) (16.0-70.0) % Lymph % (Auto) (9.0-44.0) % Banks % (Auto) (0.0-8.0) % Eos % (Auto) (0.0-4.0) % Baso % (Auto) (0.0-2.0) % Neut # (Auto) (1.8-7.7) th/mm3 Lymph # (Auto) (1.0-4.8) th/mm3 Banks # (Auto) (0.0-0.9) th/mm3 Eos # (Auto) (0.0-0.4) th/mm3 Baso # (Auto) (0.0-0.2) th/mm3 WBC Differential Differential Comment PT (9.8-11.6) sec INR Ratio APTT (23.4-31.7) sec POC Sodium (137-144) mmol/L Sodium (136-145) meq/L POC Potassium (3.6-5.0) mmol/L Potassium (3.5-5.1) meq/L POC Chloride (102-111) mmol/L Chloride (98-107) meq/L Carbon Dioxide (21.0-32.0) meq/L Anion Gap (5-15) meq/L POC BUN (5-21) mg/dL BUN (7-18) mg/dL Creatinine (0.50-1.00) mg/dL POC Creatinine (0.6-1.3) mg/dL Estimated GFR (>89) mL/min POC Glucose 126 H 114 H 114 H (68-110) mg/dL Random Glucose (74-106) mg/dL Calcium (8.5-10.1) mg/dL Magnesium (1.5-2.5) mg/dL Total Bilirubin (0.2-1.0) mg/dL AST (15-37) U/L ALT (10-53) U/L Alkaline Phosphatase (45-117) U/L Total Creatine Kinase (26-192) U/L Troponin I (0.02-0.05) ng/mL B-Natriuretic Peptide (0-100) pg/mL Total Protein (6.4-8.2) g/dL Albumin (3.4-5.0) g/dL 05/25/18 05/25/18 05/25/18 Range/Units 08:30 08:48 08:53 WBC 11.6 H (4.0-11.0) th/mm3 RBC 3.84 L (4.00-5.30) mil/mm3 Hgb 11.8 (11.6-15.3) gm/dL POC Hgb (Calc) (11.6-15.3) g/dL Hct 35.1 (35.0-46.0) % POC Hct (35-46.0) % MCV 91.4 (80.0-100.0) fL MCH 30.7 (27.0-34.0) pg MCHC 33.6 (32.0-36.0) % RDW 13.9 (11.6-17.2) % Plt Count 244 (150-450) th/mm3 MPV 8.5 (7.0-11.0) fL Neut % (Auto) 70.8 H (16.0-70.0) % Lymph % (Auto) 15.5 (9.0-44.0) % Banks % (Auto) 10.6 H (0.0-8.0) % Eos % (Auto) 2.6 (0.0-4.0) % Baso % (Auto) 0.5 (0.0-2.0) % Neut # (Auto) 8.2 H (1.8-7.7) th/mm3 Lymph # (Auto) 1.8 (1.0-4.8) th/mm3 Banks # (Auto) 1.2 H (0.0-0.9) th/mm3 Eos # (Auto) 0.3 (0.0-0.4) th/mm3 Baso # (Auto) 0.1 (0.0-0.2) th/mm3 WBC Differential . Differential Comment Auto diff final PT (9.8-11.6) sec INR Ratio APTT (23.4-31.7) sec POC Sodium (137-144) mmol/L Sodium 136 (136-145) meq/L POC Potassium (3.6-5.0) mmol/L Potassium 4.0 (3.5-5.1) meq/L POC Chloride (102-111) mmol/L Chloride 101 (98-107) meq/L Carbon Dioxide 29.1 (21.0-32.0) meq/L Anion Gap 6 (5-15) meq/L POC BUN (5-21) mg/dL BUN 7 (7-18) mg/dL Creatinine 0.73 (0.50-1.00) mg/dL POC Creatinine (0.6-1.3) mg/dL Estimated GFR 82 L (>89) mL/min POC Glucose 114 H (68-110) mg/dL Random Glucose 104 (74-106) mg/dL Calcium 8.5 (8.5-10.1) mg/dL Magnesium (1.5-2.5) mg/dL Total Bilirubin 0.5 (0.2-1.0) mg/dL AST 19 (15-37) U/L ALT 21 (10-53) U/L Alkaline Phosphatase 103 (45-117) U/L Total Creatine Kinase (26-192) U/L Troponin I (0.02-0.05) ng/mL B-Natriuretic Peptide (0-100) pg/mL Total Protein 6.8 (6.4-8.2) g/dL Albumin 3.0 L (3.4-5.0) g/dL 05/25/18 05/25/18 05/25/18 Range/Units 13:03 16:57 21:22 WBC (4.0-11.0) th/mm3 RBC (4.00-5.30) mil/mm3 Hgb (11.6-15.3) gm/dL POC Hgb (Calc) (11.6-15.3) g/dL Hct (35.0-46.0) % POC Hct (35-46.0) % MCV (80.0-100.0) fL MCH (27.0-34.0) pg MCHC (32.0-36.0) % RDW (11.6-17.2) % Plt Count (150-450) th/mm3 MPV (7.0-11.0) fL Neut % (Auto) (16.0-70.0) % Lymph % (Auto) (9.0-44.0) % Banks % (Auto) (0.0-8.0) % Eos % (Auto) (0.0-4.0) % Baso % (Auto) (0.0-2.0) % Neut # (Auto) (1.8-7.7) th/mm3 Lymph # (Auto) (1.0-4.8) th/mm3 Banks # (Auto) (0.0-0.9) th/mm3 Eos # (Auto) (0.0-0.4) th/mm3 Baso # (Auto) (0.0-0.2) th/mm3 WBC Differential Differential Comment PT (9.8-11.6) sec INR Ratio APTT (23.4-31.7) sec POC Sodium (137-144) mmol/L Sodium (136-145) meq/L POC Potassium (3.6-5.0) mmol/L Potassium (3.5-5.1) meq/L POC Chloride (102-111) mmol/L Chloride (98-107) meq/L Carbon Dioxide (21.0-32.0) meq/L Anion Gap (5-15) meq/L POC BUN (5-21) mg/dL BUN (7-18) mg/dL Creatinine (0.50-1.00) mg/dL POC Creatinine (0.6-1.3) mg/dL Estimated GFR (>89) mL/min POC Glucose 128 H 118 H 167 H (68-110) mg/dL Random Glucose (74-106) mg/dL Calcium (8.5-10.1) mg/dL Magnesium (1.5-2.5) mg/dL Total Bilirubin (0.2-1.0) mg/dL AST (15-37) U/L ALT (10-53) U/L Alkaline Phosphatase (45-117) U/L Total Creatine Kinase (26-192) U/L Troponin I (0.02-0.05) ng/mL B-Natriuretic Peptide (0-100) pg/mL Total Protein (6.4-8.2) g/dL Albumin (3.4-5.0) g/dL Imaging Data Radiologist's impression: Chest CTA 05/23/18 22:06 CONCLUSION: 1. No evidence of pulmonary embolus. 2. Coronary artery calcification. 3. Mild patchy right lower lung opacity. Chest X-Ray 05/23/18 22:06 CONCLUSION: Mild pulmonary vascular congestion. Mild cardiac silhouette enlargement. Discharge Plan Discharge Disposition Patient Disposition: 30 Still Patient Discharge Condition Condition: Stable Discharge Details Diagnosis: KEITH (dyspnea on exertion), PNA (pneumonia) Physicians Team ED Provider: Brenna Gayle ED Midlevel Provider: Franky So Primary Care Provider: Obed Jean Attending Provider: Fabiola Murrell Other Providers: [facility],Insurance Status ED Status: Left Department Discharge Information Discharge Date/Time: 05/24/18 02:14
[2018-05-23 22:54] LABS: Baso # (Auto) 0.1 th/mm3 (0.0-0.2); Baso % (Auto) 0.6 % (0.0-2.0); Eos # (Auto) 0.5 th/mm3 (0.0-0.4); Eos % (Auto) 3.7 % (0.0-4.0); Hematocrit 39.2 % (35.0-46.0); Hemoglobin 13.1 gm/dL (11.6-15.3); Lymph # (Auto) 1.4 th/mm3 (1.0-4.8); Lymph % (Auto) 9.7 % (9.0-44.0); Mean Corpuscular HGB Conc 33.4 % (32.0-36.0); Mean Corpuscular Hemoglobin 30.6 pg (27.0-34.0); Mean Corpuscular Volume 91.5 fL (80.0-100.0); Mean Platelet Volume 8.5 fL (7.0-11.0); Mono # (Auto) 0.9 th/mm3 (0.0-0.9); Mono % (Auto) 6.2 % (0.0-8.0); Neut # (Auto) 11.7 th/mm3 (1.8-7.7); Neut % (Auto) 79.8 % (16.0-70.0); Platelet Count 281 th/mm3 (150-450); Red Blood Count 4.28 mil/mm3 (4.00-5.30); Red Cell Distribution Width 13.6 % (11.6-17.2); White Blood Count 14.6 th/mm3 (4.0-11.0)
--- NOTE | 2018-05-23 23:00 | XR ---
EXAM DATE: 05/23/2018 10:57 PM EST AGE/SEX: 57 years / Female INDICATIONS: Short of breath. CLINICAL DATA: This is the patient's initial encounter. Patient reports that signs and symptoms have been present for 1 day and indicates a pain score of 0/10. MEDICAL/SURGICAL HISTORY: . Hypercholesterolemia. Hypertension. Asthma. Dyspnea. Diabetes. Endo crine disorder. Tonsillectomy. section. Cholecystectomy. Right ankle repair. . COMPARISON: [facility] [place], CHEST SINGLE AP, 01/05/2017. . FINDINGS: Single AP view of the chest was performed. Mild pulmonary vasculature indistinctness bilaterally. Khushi gs otherwise clear. Cardiac silhouette is mildly prominent. No evidence of pleural effusion or pneumo thorax. CONCLUSION: Mild pulmonary vascular congestion. Mild cardiac silhouette enlargement. Electronically signed by: Nba Boyce MD 05/23/2018 10:59 PM EST
[2018-05-23 23:11] LABS: Activated Partial Thrombo Time 28.2 sec (23.4-31.7); Alanine Aminotransferase 29 U/L (10-53); Albumin 3.4 g/dL (3.4-5.0); Anion Gap 4 meq/L (5-15); Aspartate Aminotransferase 21 U/L (15-37); Blood Urea Nitrogen 12 mg/dL (7-18); Calcium 8.6 mg/dL (8.5-10.1); Carbon Dioxide 29.9 meq/L (21.0-32.0); Chloride 107 meq/L (98-107); Glomerular Filtration Rate 65 mL/min (>89); Glucose,Random 122 mg/dL (74-106); Magnesium 1.9 mg/dL (1.5-2.5); Potassium 4.2 meq/L (3.5-5.1); Prothrombin Time 9.7 sec (9.8-11.6); Sodium 141 meq/L (136-145)
[2018-05-23 23:16] LABS: Alkaline Phosphatase 130 U/L (45-117); Creatine Kinase 70 U/L (26-192); Total Protein 7.3 g/dL (6.4-8.2)
--- NOTE | 2018-05-23 23:47 | CT ---
EXAM DATE: 05/23/2018 11:35 PM EST AGE/SEX: 57 years / Female INDICATIONS: Shortness of breath, tachycardia, and elevated blood pressure following long flight; po ssible pulmonary embolus. CLINICAL DATA: This is the patient's initial encounter. Patient reports that signs and symptoms have been present for 1 day and indicates a pain score of 0/10. MEDICAL/SURGICAL HISTORY: Diabetes. Hypertension. Pulmonary embolus Cholecystectomy. Tonsillecto my. RADIATION DOSE: 12.24 CTDI (mGy) COMPARISON: [facility] [place], CT PULMONARY ANGIOGRAM, 12/24/2016. . TECHNIQUE: Volumetric scanning was performed using a multi-row detector CT scanner during bolus infu fawn of 77 ml Omnipaque 350 (iohexol) nonionic water-soluble contrast as a single exam dose. The spring a was post processed with a variety of visualization algorithms including full volume maximum intensi ty projection and sliding thin slab reformation. Using automated exposure control and adjustment of the mA and/or kV according to patient size, radiation dose was kept as low as reasonably achievable t o obtain optimal diagnostic quality images. DICOM format image data is available electronically for review and comparison. FINDINGS: Pulmonary Arteries: Previously identified filling defects in the pulmonary arteries are no longer se en. No evidence of acute pulmonary embolus. Lung: Patchy pulmonary parenchymal opacity in the right lower lobe and right perihilar region Effusion: None. Mediastinum: No enlarged lymph nodes. Coronary artery calcification is noted. Other: The axilla is unremarkable. CONCLUSION: 1. No evidence of pulmonary embolus. 2. Coronary artery calcification. 3. Mild patchy right lower lung opacity. Electronically signed by: Nba Boyce MD 05/23/2018 11:45 PM EST
[2018-05-23] MEDS ORDERED: Azithromycin Inj 500 MG in Sodium Chlor 0.9% Inj 250 ML IV.SIG ONE (23:52)
[2018-05-24] MEDS ORDERED: Acetaminophen 325 MG Tablet PO PRN (00:39)
[2018-05-24] MEDS ORDERED: Bisacodyl 10 MG Supp RECTAL PRN (00:39)
[2018-05-24] MEDS ORDERED: Sodium Chloride 0.9% 2 ML Flush PRN IV.FLUSH (00:48)
[2018-05-24] MEDS ORDERED: Dextrose 50% in Water 50 ML Vial IV.PUSH PRN (01:02)
[2018-05-24] MEDS ORDERED: hydrALAZINE HCl Inj 20 MG/ML Vial IV.PUSH ONE (01:02)
--- NOTE | 2018-05-24 02:24 | P.HPIM ---
History of Present Illness Primary Care Physician: Obed Jean MD History of Present Illness: This is a 57-year-old female with a PMH of HTN, DM and h/o PE who presented to the ER w/ complaints of acute onset of SOB. Pt reports h/o PE in December 2016, follows w/ Dr. Guajardo and was taken off anticoagulation in Jul 2017, pt states she recently travelled to [place] and was given Lovenox 80mg sq to take prior to her flight there and again prior to her flight home. Pt states she returned from [place] today, was feeling well then had sudden onset of SOB, worse w/ exertion. Denies fever or chills, but reports mild productive cough x1 day. On arrival, BP 170/74, HR 99, O2 sat 96% on RA, Temp 99.1. WBC 14.6. INR 1.0. Chemistry unremarkable. Troponin negative. BNP 263. CXR with mild pulmonary vascular congestion, mild cardiac silhouette enlargement. CTA Chest negative for PE, mild patchy right lower lung opacity. S/p Rocephin/Zithro. While in ER, pt ambulated to bathroom w/ significant dyspnea, O2 sat 90% on RA. During exam pt remains dyspneic w/ speech. - Diagnosis (1) PNA (pneumonia) (2) KEITH (dyspnea on exertion) (3) Hx of pulmonary embolus (4) HTN (hypertension) Review of Systems PAST FAMILY HISTORY: Reviewed. No h/o DM or CAD All other systems reviewed negative except as stated [facility] - History History Provided By: Patient - Medical History Medical History: Medical History (Last Updated 05/23/18 @ 21:52 by Shahrzad Wong RN) Diabetes Hypertension Pulmonary embolism - Surgical History Surgical History: Surgical History (Last Updated 05/23/18 @ 21:52 by Shahrzad Wong RN) History of ankle surgery History of cholecystectomy History of knee surgery History of tonsillectomy - Tobacco History Smoking Status: Never smoker - Alcohol History How Often Do You Have a Drink Containing Alcohol: Monthly or less - Substance Use History Substance History: No History of Abuse - Travel History Recent Travel in the [facility] Within the Last 8 Weeks: No Recent Travel Out of the Country Within the Last 8 Weeks: No - Immunization History Tetanus Immunization: Unsure Medications and Allergies Active Medications: Active Medications Acetaminophen (Tylenol) 650 mg PO Q4H PRN PRN Reason: Temp > 100.4 Al Hydroxide/Mg Hydroxide (Milk Of Magnesia Liq) 30 ml PO Q12H PRN PRN Reason: Mild Constipation Albuterol (Duoneb Neb (Prn)) 1 ampul NEB Q4HR NEB PRN PRN Reason: SOB/WHEEZING Bisacodyl (Dulcolax Supp) 10 mg RECTAL DAILY PRN PRN Reason: SEVERE CONSITIPATION Budesonide/Formoterol Fumarate (Symbicort 160/4.5 Mcg Inh) 2 puff INH BID TRISTIN Dextrose (D50w Vial) 50 ml IV.PUSH UNSCH PRN PRN Reason: PER HYPOGLYCEMIA PROTOCOL Enoxaparin Sodium (Lovenox Inj) 40 mg SQ Q24H TRISTIN Glucagon (Glucagon Inj) 1 mg OTHER PRN PRN PRN Reason: for Hypoglycemia Protocol Guaifenesin (Mucinex Er) 600 mg PO BID TRISTIN Azithromycin 500 mg/ Sodium (Chloride) 250 mls @ 250 mls/hr IV.SIG Q24H TRISTIN Ceftriaxone Sodium 1,000 mg/ (Sodium Chloride) 100 mls @ 200 mls/hr IV.SIG Q24H TRISTIN Insulin Aspart (Novolog Insulin Correctional Sugar Inj) 0 unit SQ ACHS TRISTIN; Protocol Lactulose (Lactulose Liq) 30 ml PO DAILY PRN PRN Reason: SEVERE CONSITIPATION Ondansetron HCl (Zofran Inj) 4 mg IV.PUSH Q6H PRN PRN Reason: NAUSEA OR VOMITING Senna/Docusate Sodium (Kym-Colace) 1 tab PO BID TRISTIN Sennosides (Senokot) 17.2 mg PO Q12H PRN PRN Reason: Moderate Constipation Sodium Chloride (Ns Flush) 2 ml IV.FLUSH BID TRISTIN Sodium Chloride (Ns Flush) 2 ml IV.FLUSH PRN PRN PRN Reason: FLUSH AFTER USING IV ACCESS Allergies Allergy/AdvReac Type Severity Reaction Status Date / Time Sulfa (Sulfonamide Allergy Severe HIVES Unverified 02/17/17 17:32 Antibiotics) Home Medications Medication Instructions Recorded Confirmed Type Aspir-81 05/24/18 History Tradjenta 05/24/18 History amlodipine 05/24/18 History atorvastatin 05/24/18 History enalapril maleate 05/24/18 History metformin 05/24/18 History metoprolol tartrate 05/24/18 History Exam Vital signs: Vital Signs 05/23/18 21:50 05/23/18 22:30 05/24/18 01:43 Temperature 99.1 F Pulse Rate 99 H 93 H 99 H Respiratory Rate 24 24 22 Blood Pressure 170/74 H 206/88 H 153/67 H Pulse Oximetry 96 98 98 05/24/18 02:01 Temperature Pulse Rate 98 H Respiratory Rate 22 Blood Pressure 153/57 H Pulse Oximetry 99 Intake & Output 05/23/18 05/23/18 05/24/18 06:59 18:59 06:59 Intake Total 100 / 100 Balance 100 / 100 Weight 146.057 kg Intake: IV 100 / 100 Rocephin Inj 1,000 MG In NS Inj 100 / 100 100 ML @ 200 mls/hr IV.SIG ONCE ONE Rx#:[id number] Narrative: PE: GENERAL: Morbidly obese middle-aged white female in no acute distress, but anxious. Significant dyspnea with speech SKIN: Focused skin assessment warm and dry. HEENT: PERRLA, EOMI. No scleral icterus or conjunctival pallor. No lid lag or facial droop. CARDIOVASCULAR: Regular rate and rhythm. No obvious murmurs to auscultation. No chest tenderness to palpation. RESPIRATORY: No obvious rhonchi or wheezing. Clear to auscultation. Breath sounds equal bilaterally. GASTROINTESTINAL: Abdomen soft, non-tender, nondistended. BS normal. MUSCULOSKELETAL: Extremities without clubbing, cyanosis, or edema. No obvious deformities. NEUROLOGICAL: Awake, alert and oriented x4. No focal neurologic deficits. Moving both upper and lower extremities spontaneously. PSYCHIATRIC: Appropriate mood and affect. Insight and judgment normal. Results - Labs CBC & Chem 7: 05/23/18 22:43 05/23/18 22:43 Labs: Short CBC 05/23/18 Range/Units 22:43 WBC 14.6 H (4.0-11.0) th/mm3 Hgb 13.1 (11.6-15.3) gm/dL Hct 39.2 (35.0-46.0) % Plt Count 281 (150-450) th/mm3 BMP 05/23/18 22:43 Sodium 141 Potassium 4.2 Chloride 107 Carbon Dioxide 29.9 BUN 12 Creatinine 0.89 Calcium 8.6 Cardiac Enzymes 05/23/18 Range/Units 22:43 Total Creatine Kinase 70 (26-192) U/L Troponin I Less than 0.02 L (0.02-0.05) ng/mL Liver Function 05/23/18 Range/Units 22:43 Total Bilirubin 0.2 (0.2-1.0) mg/dL AST 21 (15-37) U/L ALT 29 (10-53) U/L Alkaline Phosphatase 130 H (45-117) U/L Albumin 3.4 (3.4-5.0) g/dL - Imaging Impressions Chest CTA 05/23/18 22:06 CONCLUSION: 1. No evidence of pulmonary embolus. 2. Coronary artery calcification. 3. Mild patchy right lower lung opacity. Chest X-Ray 05/23/18 22:06 CONCLUSION: Mild pulmonary vascular congestion. Mild cardiac silhouette enlargement. Caprini VTE Risk Assessment Caprini VTE Risk Assessment: No/Low Risk (score <= 1) Caprini Risk Assessment Model: Point Value = 1 Point Value = 2 Point Value = 3 Point Value = 5 Age 41-60 Minor surgery BMI > 25 kg/m2 Swollen legs Varicose veins or History of unexplained or recurrent spontaneous Oral contraceptives or hormone replacement Sepsis (< 1 month) Serious lung disease, including pneumonia (< 1 month) Abnormal pulmonary function Acute myocardial infarction Congestive heart failure (< 1 month) History of inflammatory bowel disease Medical patient at bed rest Age 61-74 Arthroscopic surgery Major open surgery (> 45 min) Laparoscopic surgery (> 45 min) Malignancy Confined to bed (> 72 hours) Immobilizing plaster cast Central venous access Age >= 75 History of VTE Family history of VTE Factor V Leiden Prothrombin [id number] Lupus anticoagulant Anticardiolipin antibodies Elevated serum homocysteine Heparin-induced thrombocytopenia Other congenital or acquired thrombophilia Stroke (< 1 month) Elective arthroplasty Hip, pelvis, or leg fracture Acute spinal cord injury (< 1 month) Prophylaxis Regimen: Total Risk Factor Score Risk Level Prophylaxis Regimen 0-1 Low Early ambulation 2 Moderate Order ONE of the following: *Sequential Compression Device (SCD) *Heparin 5000 units SQ BID 3-4 Higher Order ONE of the following medications: *Heparin 5000 units SQ TID *Enoxaparin/Lovenox 40 mg SQ daily (WT < 150 kg, CrCl > 30 mL/min) *Enoxaparin/Lovenox 30 mg SQ daily (WT < 150 kg, CrCl > 10-29 mL/min) *Enoxaparin/Lovenox 30 mg SQ BID (WT < 150 kg, CrCl > 30 mL/min) AND/OR *Sequential Compression Device (SCD) 5 or more Highest Order ONE of the following medications: *Heparin 5000 units SQ TID (Preferred with Epidurals) *Enoxaparin/Lovenox 40 mg SQ daily (WT < 150 kg, CrCl > 30 mL/min) *Enoxaparin/Lovenox 30 mg SQ daily (WT < 150 kg, CrCl > 10-29 mL/min) *Enoxaparin/Lovenox 30 mg SQ BID (WT < 150 kg, CrCl > 30 mL/min) AND *Sequential Compression Device (SCD) Assessment and Plan - Assessment (1) PNA (pneumonia) Code(s): J18.9 - Pneumonia, unspecified organism Status: Acute (2) KEITH (dyspnea on exertion) Code(s): R06.09 - Other forms of dyspnea Status: Acute (3) Hx of pulmonary embolus Code(s): Z86.711 - Personal history of pulmonary embolism Status: Acute (4) HTN (hypertension) Code(s): I10 - Essential (primary) hypertension Status: Acute - Plan A/P: 1. PNA: WBC 14, +productive cough, CTA Chest w/ RLL infiltrate, s/p Rocephin/ Zithro in ER, will continue w/ IV Abx, DuoNeb prn. 2. SOB: w/ exertion and significant dyspnea w/ speech, ambulating O2 90% on RA , CTA negative for PE, will monitor O2, recheck ambulating O2 prior to d/c to eval for Home O2 needs, check Echo to eval for possible valvular abnormality/ cardiomyopathy. 3. HTN: Uncontrolled. Pt does not know dosages of medications, states she missed her antihypertensives x2 days while she was travelling. BP 206/88, HR 93 , will give Hydralazine IV now, monitor BP closely, antihypertensives as needed for BP >180 4. H/o PE: PE in December 2016, following w/ Dr. Guajardo, taken off anticoagulation Jul 2017, used Lovenox 80mg sq prophylactically while travelling to and from [place], CTA Chest negative for PE as above, follow up w/ Dr. Guajardo as scheduled. 5. DM: Sliding scale w/ Accu-Cheks. Hold Metformin for now 6. DVT Prophylaxis: Lovenox 7. Social work for d/c planning as needed. 8. Case discussed w/ ER physician at length, labs/records/imaging reviewed by me.
--- NOTE | 2018-05-24 05:14 | P.PN ---
Subjective Interval history: F/U PNA. T-max over 101. Denies leg pain or swelling. No recent hospitalization Physical Exam Vital signs: Vital Signs 05/23/18 21:50 05/23/18 22:30 05/24/18 01:43 Temperature 99.1 F Pulse Rate 99 H 93 H 99 H Respiratory Rate 24 24 22 Blood Pressure 170/74 H 206/88 H 153/67 H Pulse Oximetry 96 98 98 05/24/18 02:01 05/24/18 03:14 05/24/18 04:00 Temperature 101.8 F H Pulse Rate 98 H 106 H 107 H Respiratory Rate 22 20 Blood Pressure 153/57 H 147/64 H Pulse Oximetry 99 96 96 Intake & Output 05/23/18 05/23/18 05/24/18 06:59 18:59 06:59 Intake Total 350 / 350 Balance 350 / 350 Weight 146.057 kg Intake: IV 350 / 350 Azithromycin Inj 500 MG In NS 250 / 250 Inj 250 ML @ 250 mls/hr IV.SIG ONCE ONE Rx#:[id number] Rocephin Inj 1,000 MG In NS Inj 100 / 100 100 ML @ 200 mls/hr IV.SIG ONCE ONE Rx#:[id number] Narrative: GENERAL: Morbidly obese middle-aged white female in no acute distress, but anxious. SKIN: Focused skin assessment warm and dry. CARDIOVASCULAR: Regular rate and rhythm. No obvious murmurs to auscultation. No chest tenderness to palpation. RESPIRATORY: Occasional rhonchi and wheeze. Breath sounds equal bilaterally. GASTROINTESTINAL: Abdomen soft, non-tender, nondistended. BS normal. MUSCULOSKELETAL: Extremities without clubbing, cyanosis, or edema. No obvious deformities. Area of cellulitis (warm and red but nontender) distal anterior legs patient states it is chronic NEUROLOGICAL: Awake, alert and oriented x4. No focal neurologic deficits. Moving both upper and lower extremities spontaneously. PSYCHIATRIC: Appropriate mood and affect. Insight and judgment normal. Results - Labs CBC & Chem 7: 05/23/18 22:43 05/23/18 22:43 Laboratory Results - last 24 hr 05/23/18 05/23/18 05/23/18 22:43 22:43 22:43 WBC 14.6 H RBC 4.28 Hgb 13.1 POC Hgb (Calc) Hct 39.2 POC Hct MCV 91.5 MCH 30.6 MCHC 33.4 RDW 13.6 Plt Count 281 MPV 8.5 Neut % (Auto) 79.8 H Lymph % (Auto) 9.7 Cotton % (Auto) 6.2 Eos % (Auto) 3.7 Baso % (Auto) 0.6 Neut # (Auto) 11.7 H Lymph # (Auto) 1.4 Cotton # (Auto) 0.9 Eos # (Auto) 0.5 H Baso # (Auto) 0.1 WBC Differential . Differential Comment Auto diff final PT 9.7 L INR 1.0 APTT 28.2 POC Sodium Sodium 141 POC Potassium Potassium 4.2 POC Chloride Chloride 107 Carbon Dioxide 29.9 Anion Gap 4 L POC BUN BUN 12 Creatinine 0.89 POC Creatinine Estimated GFR 65 L POC Glucose Random Glucose 122 H Calcium 8.6 Magnesium 1.9 Total Bilirubin 0.2 AST 21 ALT 29 Alkaline Phosphatase 130 H Total Creatine Kinase 70 Troponin I Less than 0.02 L B-Natriuretic Peptide Total Protein 7.3 Albumin 3.4 05/23/18 05/23/18 22:43 22:43 WBC RBC Hgb POC Hgb (Calc) 13.3 Hct POC Hct 39.0 MCV MCH MCHC RDW Plt Count MPV Neut % (Auto) Lymph % (Auto) Cotton % (Auto) Eos % (Auto) Baso % (Auto) Neut # (Auto) Lymph # (Auto) Cotton # (Auto) Eos # (Auto) Baso # (Auto) WBC Differential Differential Comment PT INR APTT POC Sodium 141 Sodium POC Potassium 4.2 Potassium POC Chloride 103 Chloride Carbon Dioxide Anion Gap POC BUN 12 BUN Creatinine POC Creatinine 0.8 Estimated GFR POC Glucose 122 H Random Glucose Calcium Magnesium Total Bilirubin AST ALT Alkaline Phosphatase Total Creatine Kinase Troponin I B-Natriuretic Peptide 263 H Total Protein Albumin - Imaging Impressions Chest CTA 05/23/18 22:06 CONCLUSION: 1. No evidence of pulmonary embolus. 2. Coronary artery calcification. 3. Mild patchy right lower lung opacity. Chest X-Ray 05/23/18 22:06 CONCLUSION: Mild pulmonary vascular congestion. Mild cardiac silhouette enlargement. - Procedures none Assessment and Plan - Assessment (1) PNA (pneumonia) Code(s): J18.9 - Pneumonia, unspecified organism Status: Acute (2) KEITH (dyspnea on exertion) Code(s): R06.09 - Other forms of dyspnea Status: Acute (3) Hx of pulmonary embolus Code(s): Z86.711 - Personal history of pulmonary embolism Status: Acute (4) HTN (hypertension) Code(s): I10 - Essential (primary) hypertension Status: Acute - Plan \1. PNA with sepsis: WBC 14, +productive cough, CTA Chest w/ RLL infiltrate, s /p Rocephin/Zithro in ER, will continue w/ IV Abx, DuoNeb prn. Bcx, sputum cx, legionella and pneumococcal urinary antigen 2. SOB: w/ exertion and significant dyspnea w/ speech, ambulating O2 90% on RA , CTA negative for PE, will monitor O2, recheck ambulating O2 prior to d/c to eval for Home O2 needs, check Echo to eval for possible valvular abnormality/ cardiomyopathy. 3. HTN: Uncontrolled. Pt does not know dosages of medications, states she missed her antihypertensives x2 days while she was travelling. BP 206/88, HR 93 , will give Hydralazine IV now, monitor BP closely, antihypertensives as needed for BP >180. RN to verify home meds 4. H/o PE: PE in December 2016, following w/ Dr. Guajardo, taken off anticoagulation Jul 2017, used Lovenox 80mg sq prophylactically while travelling to and from [place], CTA Chest negative for PE as above, follow up w/ Dr. Guajardo as scheduled. 5. DM: Sliding scale w/ Accu-Cheks. Hold Metformin for now 6. BLE(ant legs) cellulitis. RN to [facility] and continue above-mentioned antibiotics. Monitor for response DVT Prophylaxis: Lovenox Discharge Planning: Discussed with UR, patient not a candidate for inpatient status
[2018-05-24] MEDS: Enoxaparin Inj 40 MG/0.4 ML Syringe SQ SCH (09:03)
[2018-05-24] MEDS: Sodium Chloride 0.9% 2 ML Flush BID IV.FLUSH SCH ×2 (09:03→20:23)
[2018-05-24] MEDS: guaiFENesin 600 MG ER Tablet PO SCH ×2 (09:03→20:22)
[2018-05-24] MEDS: Insulin NovoLOG Aspart Correctional Sugar Inj SQ SCH ×4 (09:08→21:50)
[2018-05-24] MEDS: Budesonide-Formoterol 160/4.5 MCG 6 GM Inhaler INH SCH ×2 (10:05→20:24)
[2018-05-24] MEDS: Senna/Docusate Sodium 8.6/50 MG Tablet PO SCH ×2 (10:05→20:23)
[2018-05-24] MEDS: Metoprolol Tartrate 50 MG Tablet PO SCH (15:22)
--- NOTE | 2018-05-24 17:33 | ECG ---
Date Performed: 05/23/2018 Time Performed: 22:35:09 PTAGE: 57 years EKG: SINUS TACHYCARDIA POSSIBLE LEFT ATRIAL ENLARGEMENT ABNORMAL RHYTHM ECG PREVIOUS TRACING : 01/05/2017 22.46 Compared to previous tracing, rate faster DOCTOR: Christopher Bianchi Interpretating Date/Time 05/24/2018 17:32:53
--- NOTE | 2018-05-24 22:55 | ECHRPT ---
Indication: CARDIOMYOPATHY CONCLUSIONS Normal left ventricular size. Wall thickness is normal. The left ventricular systolic function is mildly reduced with an estimated ejection fraction in the range of 45- 50%. Mitral annular calcification is present. Trace mitral valve regurgitation. The estimated pulmonary arterial pressure is 45 mmHg. BP: / HR: Rhythm: Technical Quality: FINDINGS LEFT VENTRICLE Normal left ventricular size. Wall thickness is normal. The left ventricular systolic function is mildly reduced with an estimated ejection fraction in the range of 45- 50%. RIGHT VENTRICLE Normal right ventricular size and systolic function. LEFT ATRIUM The left atrial size is normal. RIGHT ATRIUM The right atrial size is normal. ATRIAL SEPTUM Normal atrial septal thickness without atrial level shunting by limited color doppler interrogation. AORTA The aortic root and proximal ascending aorta are normal in size on limited imaging. MITRAL VALVE Mitral annular calcification is present. Trace mitral valve regurgitation. AORTIC VALVE Trileaflet aortic valve. No aortic valve stenosis or regurgitation. TRICUSPID VALVE The estimated pulmonary arterial pressure is 45 mmHg. PULMONARY VALVE The pulmonary valve is not well visualized. VESSELS The inferior vena cava is normal in size. PERICARDIUM No pericardial effusion. Christopher Bianchi MD, FACC (Electronically Signed) Final Date:24 May 2018 22:54
[2018-05-25] MEDS: Azithromycin Inj 500 MG in Sodium Chlor 0.9% Inj 250 ML IV.SIG SCH (00:49)
[2018-05-25] MEDS: amLODIPine 5 MG Tablet PO SCH (09:31)
[2018-05-25] MEDS: Senna/Docusate Sodium 8.6/50 MG Tablet PO SCH ×2 (09:31→21:16)
[2018-05-25] MEDS: guaiFENesin 600 MG ER Tablet PO SCH ×2 (09:31→21:16)
[2018-05-25] MEDS: Insulin NovoLOG Aspart Correctional Sugar Inj SQ SCH ×4 (09:31→21:23)
[2018-05-25] MEDS: Metoprolol Tartrate 50 MG Tablet PO SCH (09:31)
[2018-05-25] MEDS: Enoxaparin Inj 40 MG/0.4 ML Syringe SQ SCH (09:31)
[2018-05-25] MEDS: Budesonide-Formoterol 160/4.5 MCG 6 GM Inhaler INH SCH ×2 (09:32→21:16)
[2018-05-25] MEDS: Sodium Chloride 0.9% 2 ML Flush BID IV.FLUSH SCH ×2 (09:32→21:17)
[2018-05-25 09:33] LABS: Baso # (Auto) 0.1 th/mm3 (0.0-0.2); Baso % (Auto) 0.5 % (0.0-2.0); Eos # (Auto) 0.3 th/mm3 (0.0-0.4); Eos % (Auto) 2.6 % (0.0-4.0); Hematocrit 35.1 % (35.0-46.0); Hemoglobin 11.8 gm/dL (11.6-15.3); Lymph # (Auto) 1.8 th/mm3 (1.0-4.8); Lymph % (Auto) 15.5 % (9.0-44.0); Mean Corpuscular HGB Conc 33.6 % (32.0-36.0); Mean Corpuscular Hemoglobin 30.7 pg (27.0-34.0); Mean Corpuscular Volume 91.4 fL (80.0-100.0); Mean Platelet Volume 8.5 fL (7.0-11.0); Mono # (Auto) 1.2 th/mm3 (0.0-0.9); Mono % (Auto) 10.6 % (0.0-8.0); Neut # (Auto) 8.2 th/mm3 (1.8-7.7); Neut % (Auto) 70.8 % (16.0-70.0); Platelet Count 244 th/mm3 (150-450); Red Blood Count 3.84 mil/mm3 (4.00-5.30); Red Cell Distribution Width 13.9 % (11.6-17.2); White Blood Count 11.6 th/mm3 (4.0-11.0)
[2018-05-25 10:02] LABS: Anion Gap 6 meq/L (5-15); Aspartate Aminotransferase 19 U/L (15-37); Blood Urea Nitrogen 7 mg/dL (7-18); Calcium 8.5 mg/dL (8.5-10.1); Carbon Dioxide 29.1 meq/L (21.0-32.0); Chloride 101 meq/L (98-107); Glomerular Filtration Rate 82 mL/min (>89); Glucose,Random 104 mg/dL (74-106); Sodium 136 meq/L (136-145)
[2018-05-25 10:03] LABS: Alanine Aminotransferase 21 U/L (10-53)
[2018-05-25 10:05] LABS: Alkaline Phosphatase 103 U/L (45-117); Total Protein 6.8 g/dL (6.4-8.2)
--- NOTE | 2018-05-25 12:34 | P.PNIM ---
Subjective Interval history: still feeling short of breath and wheezing. coughing up yellowish sputum. Physical Exam Vital signs: Last Vital Signs Temp 99.3 F 05/25/18 12:00 Pulse 74 05/25/18 12:00 Resp 16 05/25/18 12:00 BP 125/60 05/25/18 12:00 Pulse Ox 97 05/25/18 12:00 Intake & Output 05/23/18 05/24/18 05/25/18 05/26/18 06:59 06:59 06:59 06:59 Intake Total 350 / 350 350 / 350 Balance 350 / 350 350 / 350 Weight 146.057 kg Narrative: GENERAL: Morbidly obese middle-aged white female in no acute distress. HEENT: not pale,anicteric,dry oral mucous membranes. CARDIOVASCULAR: Regular rate and rhythm. No obvious murmurs to auscultation. No chest tenderness to palpation. RESPIRATORY:reduced air entry lower zones, scattered wheezes in both upper/mid zones posterior lung jovel. GASTROINTESTINAL: Abdomen soft, non-tender, nondistended. BS normal. MUSCULOSKELETAL: Extremities without clubbing, cyanosis, or edema. No obvious deformities. Area of cellulitis (warm and red but nontender) distal anterior legs patient states it is chronic NEUROLOGICAL: Awake, alert and oriented x4. No focal neurologic deficits. Moving both upper and lower extremities spontaneously. SKIN: Focused skin assessment warm and dry. PSYCHIATRIC: Appropriate mood and affect. Insight and judgment normal. Results Labs CBC & Chem 7: 05/25/18 08:30 05/25/18 08:48 Labs: Microbiology 05/24/18 07:35 Blood - Peripheral Aerobic Blood Culture - Preliminary No growth in 1 day 05/24/18 07:35 Blood - Peripheral Anaerobic Blood Culture - Preliminary No growth in 1 day 05/24/18 07:25 Blood - Peripheral Aerobic Blood Culture - Preliminary No growth in 1 day 05/24/18 07:25 Blood - Peripheral Anaerobic Blood Culture - Preliminary No growth in 1 day 05/24/18 19:30 Urine - Clean Catch Urine Streptococcus pneumoniae Antigen ( M - Final Presumptive negative for streptococcus pneumoniae antigen, suggesting no current or recent infection. Infection due to Streptococcus pneumoniae cannot be ruled out since the antigen present in the sample may be below the detection limit of the test. 05/24/18 19:30 Urine - Clean Catch Urine Legionella Antigen - Final Presumptive negative for Legionella pneumophila serogroup 1 antigen in urine, suggesting no recent or recurrent infection. Infection due to Legionella cannot be ruled out since other serogroups and species may cause disease, antigen may not be present in urine in early infection, and the level of antigen present in the urine may be below the detection limit of the test. 05/24/18 11:57 Sputum - Expectorated Sputum Gram Stain - Final Procedures Procedures: none Assessment and Plan (1) PNA (pneumonia): Code(s): J18.9 - Pneumonia, unspecified organism Status: Acute (2) KEITH (dyspnea on exertion): Code(s): R06.09 - Other forms of dyspnea Status: Acute (3) Hx of pulmonary embolus: Code(s): Z86.711 - Personal history of pulmonary embolism Status: Acute (4) HTN (hypertension): Code(s): I10 - Essential (primary) hypertension Status: Acute Plan 1. PNA with sepsis: WBC 14 on admission--now trending down 11.6, +productive cough, CTA Chest w/ RLL infiltrate,negative for PE. she remains short of breath on exertion but with some improvement,feels tight and still wheezing. Bcx, sputum cx negative to date. legionella and pneumococcal urinary antigen negative Continue Rocephin/Zithro in ER, will continue w/ IV Abx, DuoNeb prn. taper oxygen as tolerated. will need ambulatory sats checked when ready for dc. ECHO ordered on admission was normal. 2. HTN: controlled today. home medication-Amlodipine and Metoprolol-were resumed. 3. H/o PE: PE in December 2016, following w/ Dr. Guajardo, taken off anticoagulation Jul 2017, used Lovenox 80mg sq prophylactically while travelling to and from [place], CTA Chest negative for PE as above, follow up w/ Dr. Guajardo as scheduled. 4. DM: Sliding scale w/ Accu-Cheks. Hold Metformin for now 5. BLE(ant legs) cellulitis. RN to [facility] and continue above-mentioned antibiotics. Monitor for response. DVT Prophylaxis: Lovenox Disposition: will consider dc home on 05/26 if breathing SOB improving,and successfully tapered off oxygen with appropriate ambulatory sats. _ (1) HTN (hypertension) Qualifiers: Hypertension type: (2) PNA (pneumonia) Qualifiers: Aspiration pneumonia type: Laterality: Lung location: Pneumonia type:
[2018-05-26] MEDS: Azithromycin Inj 500 MG in Sodium Chlor 0.9% Inj 250 ML IV.SIG SCH (00:35)
[2018-05-26 08:56] VITALS: RESP 18
[2018-05-26] MEDS: Insulin NovoLOG Aspart Correctional Sugar Inj SQ SCH ×2 (09:11→12:55)
[2018-05-26] MEDS: guaiFENesin 600 MG ER Tablet PO SCH (09:12)
[2018-05-26] MEDS: Metoprolol Tartrate 50 MG Tablet PO SCH (09:12)
[2018-05-26] MEDS: Enoxaparin Inj 40 MG/0.4 ML Syringe SQ SCH (09:12)
[2018-05-26] MEDS: amLODIPine 5 MG Tablet PO SCH (09:12)
[2018-05-26] MEDS: Senna/Docusate Sodium 8.6/50 MG Tablet PO SCH (09:13)
[2018-05-26] MEDS: Budesonide-Formoterol 160/4.5 MCG 6 GM Inhaler INH SCH (09:13)
[2018-05-26] MEDS: Sodium Chloride 0.9% 2 ML Flush BID IV.FLUSH SCH (09:13)
[2018-05-26 11:08] VITALS: BP 117/56; PULSE 86; TEMP 97.8
[2018-05-26 12:47] VITALS: O2SAT 97
--- NOTE | 2018-05-26 14:04 | P.DS ---
DS: Providers Date of admission: 05/24/18 00:36 Primary care physician: Obde Jean MD Consults: 05/24/18 01:50 HUB Only Consult Order Routine Consulting Provider: [facility],Insurance Brief History from admission: This is a 57-year-old female with a PMH of HTN, DM and h/o PE who presented to the ER w/ complaints of acute onset of SOB. Pt reports h/o PE in December 2016, follows w/ Dr. Guajardo and was taken off anticoagulation in Jul 2017, pt states she recently travelled to [place] and was given Lovenox 80mg sq to take prior to her flight there and again prior to her flight home. Pt states she returned from [place] today, was feeling well then had sudden onset of SOB, worse w/ exertion. Denies fever or chills, but reports mild productive cough x1 day. On arrival, BP 170/74, HR 99, O2 sat 96% on RA, Temp 99.1. WBC 14.6. INR 1.0. Chemistry unremarkable. Troponin negative. BNP 263. CXR with mild pulmonary vascular congestion, mild cardiac silhouette enlargement. CTA Chest negative for PE, mild patchy right lower lung opacity. S/p Rocephin/Zithro. While in ER, pt ambulated to bathroom w/ significant dyspnea, O2 sat 90% on RA. During exam pt remains dyspneic w/ speech. DS: Diagnosis Discharge Diagnosis (1) PNA (pneumonia): Status: Acute (2) KEITH (dyspnea on exertion): Status: Acute (3) Hx of pulmonary embolus: Status: Acute (4) HTN (hypertension): Status: Acute DS: Summary ISSUES ADDRESSED DURING THIS HOSPITALIZATION: 1. Community acquired pneumonia with sepsis: WBC 14 on admission--trended down 11.6, +productive cough, CTA Chest w/ RLL infiltrate,negative for PE. Bcx, sputum cx negative to date.legionella and pneumococcal urinary antigen negative.ECHO ordered on admission due to concern for possible chf was normal. Patient was treated with Rocephin/Zithromax, DuoNeb prn and started on supplemental oxygen. Her condition continued to improve and oxygen was tapered off successfully. She has been transitioned to oral Moxifloxacin on discharge to complete 7 days of treatment. ambulatory sats checked prior to discharge were in the 96% range on ambient air. 2. BLE(anterior legs) cellulitis: responded well to antibiotics given for pna treatment above. 3. HTN: Initially bp was uncontrolled but responded appropriately to resumption of home medication. Patient was in a stable condition on discharge and has been advised to follow up with her primary care doctor within 1 week for re-evaluation. Time Spent with Patient Total time spent providing and/or coordinating discharge services: Results Procedures completed during hospitalization: none Labs on day of discharge: Labs from last 24 hours 05/26/18 05/26/18 05/25/18 12:19 07:39 21:22 POC Glucose 154 H 110 167 H 05/25/18 16:57 POC Glucose 118 H Preliminary micro results at discharge 05/24/18 07:35 Aerobic Blood Culture - Preliminary Blood - Peripheral No growth in 2 days Anaerobic Blood Culture - Preliminary No growth in 2 days 05/24/18 07:25 Aerobic Blood Culture - Preliminary Blood - Peripheral No growth in 2 days Anaerobic Blood Culture - Preliminary No growth in 2 days Impressions ITS Impressions Chest CTA 05/23/18 22:06 CONCLUSION: 1. No evidence of pulmonary embolus. 2. Coronary artery calcification. 3. Mild patchy right lower lung opacity. Chest X-Ray 05/23/18 22:06 CONCLUSION: Mild pulmonary vascular congestion. Mild cardiac silhouette enlargement. Discharge Plan Discharge Disposition Patient Disposition: Discharge Home Discharge Condition Condition: Stable Discharge Order Discharge Orders: Discharge Order (Routine); Ordered 05/26/18 Ordered By: Fabiola Murrell Discharge Details Anticipated Discharge Date: 05/26/18 Physicians Team Primary Care Provider: Obed Jena Attending Provider: Fabiola Murrell Other Providers: [facility],Insurance Rxs /Orders / Referrals /Forms Prescriptions: New moxifloxacin 400 mg tablet 400 mg PO DAILY 7 Days Qty: 7 RF: 0 guaifenesin [Mucinex] 600 mg Tablet Extended Release 12hr 600 mg PO BID Qty: 10 RF: 0 prednisone 20 mg tablet 40 mg PO DAILY 3 Days Qty: 6 RF: 0 Continue Aspir-81 81 mg PO DAILY RF: 0 Tradjenta 5 mg PO DAILY RF: 0 amlodipine 5 mg PO DAILY RF: 0 atorvastatin 20 mg PO DAILY RF: 0 enalapril maleate 20 mg PO DAILY RF: 0 metformin 500 mg PO DAILY RF: 0 metoprolol tartrate 50 mg PO DAILY RF: 0 Referrals: Obed Jean MD [Primary Care Provider] - See Instructions Discharge Instructions Patient Printed Instructions: Prednisone (By mouth), Guaifenesin (By mouth), Moxifloxacin (By mouth), Dyspnea (DC) Additional Instructions: You presented to the hospital with shortness of breath and wheezing. You were found to have pneumonia.You received intravenous antibiotics, breathing treatments and required oxygen supplementation. Your condition has improved, oxygen was weaned off and you have been transitioned to antibiotic pills( Moxifloxacin), please complete dose as prescribed. You have also been given a short course of prednisone which you should complete as prescribed. Continue using your albuterol inhaler as needed. Follow up with your primary care doctor within 1 week for re-evaluation. Discharge Interventions Interventions: Discharge Planning - Case Management Last Done: 05/25/18 13:07 Status ED Status: Left Department
== END 2018-05-26 14:34 | disposition home or self-care (01) ==
LOC: NEPE 21:32 → NEDA 21:32 → NEPFCDU 05-24 02:06
PROVIDERS: ADMIT Hospitalist; ATTEND Hospitalist